=== PATIENT | male | born 1935 | race Caucasian/White ===

== ENCOUNTER 2017-11-27 03:04 | Inpatient (IN) ==
[2017-11-27] MEDS ORDERED: Naloxone 0.4 MG/ML INJ IVP PRN (05:55)
[2017-11-27] MEDS ORDERED: Ondansetron 4 MG/2 ML VIAL IVP PRN (05:55)
[2017-11-27] MEDS ORDERED: *HR* Enoxaparin 30 MG/0.3 ML SYRINGE SQ SCH (06:00)
[2017-11-27] MEDS ORDERED: Ipratropium/Albuterol Neb 3 ML IH PRN ×2 (06:00→16:52)
--- NOTE | 2017-11-27 06:12 | Internal Med History&Physical ---
Date of Encounter: 11/27/17 Time of Encounter: 06:02 Assessment and Plan (1) Acute exacerbation of chronic obstructive airways disease Current visit: No Status: Acute BIPAP in the ICU, critically ill duonebs iv steroids send RVP NPO with GI ppx for now given severe respiratory status (2) Pneumonia Current visit: No Status: Acute recheck blood cx IV cefepime IV vanco given failure of prior therapy supportive BIPAP Qualifiers: Pneumonia type: due to unspecified organism Laterality: right Lung location: lower lobe of lung Qualified Code(s): J18.1 - Lobar pneumonia, unspecified organism (3) Acute and chronic respiratory failure Current visit: Yes Status: Acute continue measures above Qualifiers: Respiratory failure complication: hypercapnia Qualified Code(s): J96.22 - Acute and chronic respiratory failure with hypercapnia (4) Diabetes type 2, controlled Current visit: No Status: Acute Qualifiers: Diabetes mellitus complication status: without complication Diabetes mellitus residential insulin use: without residential use Qualified Code(s): E11.9 - Type 2 diabetes mellitus without complications (5) HTN (hypertension) Current visit: Yes Status: Acute hold anti-HTN given above condition Qualifiers: Hypertension type: essential hypertension Qualified Code(s): I10 - Essential (primary) hypertension Internal Medicine - H&P: HPI Chief complaint: SOB History of present illness: Mr. Stephen is a 82 year old male who presents as a transfer from a local ED with respiratory failure 2/2 COPD flare and PNA. Review of hx was significant for PNA and strep pneumonia bacteremia on 11/06/17 and was subsequently sent home on levaquin a few days later on 11/09/17. Since returning home, he developed progressive SOB, worse with movement, better/ stable with rest in the last 5 days. He presented to the local ED with significant respiratory distress and had to be stabilized on Bipap prior to transfer to [facility] XR/XR chest 1V portable IMPRESSION: Multilobar pneumonia most pronounced in the right lower lobe. Follow-up imaging is recommended after treatment to ensure resolution. Past Med Surg Social Fam HX - Past Medical History Medical history: COPD, diabetes, hyperlipidemia, hypertension Psychiatric history: no psych history - Social History Smoking Status: Current every day smoker Smokeless Tobacco Status: No Alcohol use: none Drug use: none - Family History Grandmother Living Status: Hx Family Neurologic Disorders: Yes (stroke) Mother Living Status: Hx Family Cardiac Disorders: Yes (heart failure) Internal Medicine - H&P: Meds Albuterol Sulfate [Ventolin Hfa] 18 gm IH Q4-6H PRN 11/06/17 [History] Losartan Potassium [Cozaar] 100 mg PO DAILY 11/06/17 [History] Metoprolol Tartrate [Lopressor] 100 mg PO BID 11/06/17 [History] Simvastatin [Zocor] 20 mg PO HS 11/06/17 [History] Tiotropium [Spiriva] 18 mcg IH 0700 11/06/17 [History] Torsemide 5 mg PO DAILY 11/06/17 [History] amLODIPine [Norvasc] 10 mg PO DAILY 11/06/17 [History] metFORMIN [Glucophage] 850 mg PO BIDWM 11/06/17 [History] 3 Allergy/AdvReac Type Severity Reaction Status Date / Time No Known Allergies Allergy Verified 11/27/17 02:05 All Systems PM: A 10-system review of systems was performed and is negative for pertinent findings except as documented above in the HPI. Review of systems: ROS 14 point review of systems reviewed as best as possible given presentation. Pertinent positive or negative as per HPI or otherwise reviewed as negative - Constitutional Vitals: BP 157/80, HR 103, RR 35, pulse ox 95% on bipap Exam: General - In distress Psych - In respiratory distress Eyes - JUJU. Eye lids intact. No scleral icterus Neuro - Unable to participate fully due to respiratory distress Heart - Sinus tachycardia. RRR. S1 and S2 present. No added HS/murmurs appreciated. No elevated JVD appreciated. Lung - Adequate air entry b/l, crackles and rhonchis appreciated GI - Soft, non-tender. No hepatosplenomegaly/ascites. BS+ - No CVA/suprapubic tenderness or palpable bladder distension Skin - Intact. No rash/petechiae/ecchymosis. Warm extremities MSK - Joints with normal ROM. No joint swellings
[2017-11-27] MEDS ORDERED: D5% in Water 1,000 ML IVC PRN (06:15)
[2017-11-27] MEDS ORDERED: Dextrose Gel 15 GM/37.5 ML TUBE PO PRN ×2 (06:15)
[2017-11-27] MEDS ORDERED: *HR* Dextrose 50 % in Water (Syg) 50 ML SYRINGE IVP PRN (06:15)
[2017-11-27] MEDS ORDERED: *HR* Metoprolol 5 MG/5 ML VIAL IVP PRN (06:26)
[2017-11-27] MEDS: Cefepime HCl 2,000 MG in Water for inj. (sterile) 20 ML 20 ML IVPB SCH ×2 (06:39→17:28)
[2017-11-27] MEDS: Ringers Solution, Lactated 1,000 ML IVC SCH ×2 (06:41→17:21)
[2017-11-27] MEDS: Famotidine 20 MG/2 ML VIAL IVP SCH ×2 (06:43→17:28)
[2017-11-27 06:45] LABS: ABG Base Excess 2 mEq/L (-2 to 3); ABG HCO3 33 mEq/L (21-27); ABG Oxygen Saturation 79 % (95-98); ABG PCO2 88 mmHg (35-45); ABG PH 7.18 pH Units (7.32-7.45); ABG PO2 57 mmHg (85-104); ABG TCO2 36 mEq/L (20-26); Blood Gas PEEP 8 cm H2O; Blood Gas Pressure Support 14 cm H2O
[2017-11-27] MEDS ORDERED: Vancomycin 0 MG in D5% in Water 250 ML IVPB SCH (07:00)
[2017-11-27] MEDS: MethylPREDNISolone 40 MG/ML VIAL IVP SCH ×3 (07:55→20:52)
[2017-11-27] MEDS: Vancomycin 1,250 MG in D5% in Water 250 ML IVPB SCH (07:57)
[2017-11-27 08:47] LABS: ABG Base Excess 1 mEq/L (-2 to 3); ABG HCO3 31 mEq/L (21-27); ABG Oxygen Saturation 90 % (95-98); ABG PCO2 76 mmHg (35-45); ABG PH 7.21 pH Units (7.32-7.45); ABG PO2 74 mmHg (85-104); ABG TCO2 33 mEq/L (20-26); Blood Gas Modality BiLevel; Blood Gas PEEP 8 cm H2O; Blood Gas Pressure Support 20 cm H2O
[2017-11-27 10:29] LABS: Adenovirus Not Detected (Not Detect); Coronavirus 229E Not Detected (Not Detect); Coronavirus HKU1 Not Detected (Not Detect); Coronavirus NL63 Not Detected (Not Detect); Coronavirus OC43 Not Detected (Not Detect)
[2017-11-27 10:30] LABS: Bordetella Pertussis Not Detected (Not Detect); Chlamydophila pneumoniae Not Detected (Not Detect); Human Metapneumovirus ***DETECTED*** (Not Detect); Human Rhinovirus/Enterovirus Not Detected (Not Detect); Influenza A Subtype 2009 H1 Not Detected (Not Detect); Influenza A Untypeable Not Detected (Not Detect); Influenza B Not Detected (Not Detect); Mycoplasma pneumoniae Not Detected (Not Detect); Parainfluenza Virus 1 Not Detected (Not Detect); Parainfluenza Virus 2 Not Detected (Not Detect); Parainfluenza Virus 3 Not Detected (Not Detect); Parainfluenza Virus 4 Not Detected (Not Detect); Respiratory Syncytial Virus Not Detected (Not Detect)
[2017-11-27] MEDS: Ipratropium/Albuterol Neb 3 ML IH SCH ×2 (11:47→17:09)
[2017-11-27] MEDS: Insulin LISPRO 300 UNITS/3 ML VIAL SQ SCH ×3 (12:16→23:40)
--- NOTE | 2017-11-27 14:33 | Internal Med Progress Note ---
Date of Encounter: 11/27/17 Time of Encounter: 08:00 - Constitutional Vitals: Temp Pulse Resp BP Pulse Ox 97.7 F 79 13 160/76 100 11/27/17 11:59 11/27/17 12:08 11/27/17 11:47 11/27/17 07:45 11/27/17 11:47 Internal Medicine: Result - ABG Interpretation ABG results: ABG ABG pH 7.21 pH Units (7.32-7.45) L 11/27/17 08:41 ABG pCO2 76 mmHg (35-45) H* 11/27/17 08:41 ABG pO2 74 mmHg (85-104) L 11/27/17 08:41 ABG O2 Saturation 90 % (95-98) L 11/27/17 08:41 Consult Discharge Plan - Plan Referrals: Fermín Akhtar MD [Primary Care Provider] -
[2017-11-27 14:53] LABS: ABG Base Excess 4 mEq/L (-2 to 3); ABG HCO3 33 mEq/L (21-27); ABG Oxygen Saturation 90 % (95-98); ABG PCO2 85 mmHg (35-45); ABG PO2 76 mmHg (85-104); ABG TCO2 36 mEq/L (20-26); Blood Gas PEEP 8 cm H2O; Blood Gas Pressure Support 20 cm H2O
--- NOTE | 2017-11-27 16:41 | Pulmonology Consult Note ---
<DarrelBakari R - Last Filed: 11/27/17 16:28> Date of Encounter: 11/27/17 Time of Encounter: 16:28 Assessment and Plan (1) Acute and chronic respiratory failure Current Visit: Yes Status: Acute Secondary to Pneumonia and Acute Exacerbation of COPD Previous admission (11/06-11/09/17) with multilobar pneumonia and Strep pneumoniae bacteremia discharged on levaquin CXR: multilobar pneumonia most pronounced on right lower lobe Labs in ED showed normal blood counts and electrolytes Initial ABG: pH 7.24, pCO2 78, and pHCO3 33 Repeat ABG: pH 7.20, pCO2 76, and pHCO3 33 Respiratory panel positive for Metapneumo virus Blood and sputum cultures pending Continue Cefepime and Vancomycin Continue BiPAP, steroids Increase duonebs to Q2h Qualifiers: Respiratory failure complication: hypercapnia Qualified Code(s): J96.22 - Acute and chronic respiratory failure with hypercapnia (2) Acute exacerbation of chronic obstructive airways disease Current Visit: Yes Status: Acute (3) Pneumonia Current Visit: Yes Status: Acute Qualifiers: Pneumonia type: due to unspecified organism Laterality: right Lung location: lower lobe of lung Qualified Code(s): J18.1 - Lobar pneumonia, unspecified organism (4) HTN (hypertension) Current Visit: Yes Status: Acute Hold home meds Qualifiers: Hypertension type: essential hypertension Qualified Code(s): I10 - Essential (primary) hypertension (5) Diabetes type 2, controlled Current Visit: No Status: Acute Hold home meds. SSI Qualifiers: Diabetes mellitus complication status: without complication Diabetes mellitus senior living insulin use: without senior living use Qualified Code(s): E11.9 - Type 2 diabetes mellitus without complications History of Present Illness Consult date: 11/27/17 Requesting physician: Damien Chavez Reason for consult: pneumonia Chief complaint: Dyspnea History of present illness: Mr. Stephen is an 82 year old male with PMH of COPD, DM, HTN, and HLD, who was transferred from [facility] for acute on chronic respiratory failure secondary to acute exacerbation of COPD and pneumonia. He was recently admitted for multilobar PNA and strep pneumoniae bacteremia on 11/06/17 and discharged on with Levaquin. He then began to experience worsening dyspnea, associated with productive cough, worsened with exertion and improved with rest. He was stabilized with BiPAP prior to transfer. CXR showed multilobar pneumonia most pronounced on right lower lobe. Labs in ED showed normal blood counts and electrolytes. Initial pH 7.24, pCO2, and pHCO3 33. Past Med Surg Social Fam HX - Past Medical History Medical history: COPD, diabetes, hyperlipidemia, hypertension Psychiatric history: no psych history - Social History Smoking Status: Current every day smoker Smokeless Tobacco Status: No Alcohol use: none Drug use: none - Family History Grandmother Living Status: Hx Family Neurologic Disorders: Yes (stroke) Mother Living Status: Hx Family Cardiac Disorders: Yes (heart failure) Medications and Allergies Albuterol Sulfate [Ventolin Hfa] 18 gm IH Q4-6H PRN 11/06/17 [History] Losartan Potassium [Cozaar] 100 mg PO DAILY 11/06/17 [History] Metoprolol Tartrate [Lopressor] 100 mg PO BID 11/06/17 [History] Simvastatin [Zocor] 20 mg PO HS 11/06/17 [History] Tiotropium [Spiriva] 18 mcg IH 0700 11/06/17 [History] Torsemide 5 mg PO DAILY 11/06/17 [History] amLODIPine [Norvasc] 10 mg PO DAILY 11/06/17 [History] metFORMIN [Glucophage] 850 mg PO BIDWM 11/06/17 [History] Budesonide/Formoterol 160/4.5 [Symbicort 160/4.5] 1 puff IH AD 11/27/17 [History ] 3 Allergy/AdvReac Type Severity Reaction Status Date / Time No Known Allergies Allergy Verified 11/27/17 02:05 All Systems: A 10-system review of systems was performed and is negative for pertinent findings except as documented above in the HPI. Physical Examination General appearance: lethargic Eyes: nonicteric ENT: oropharynx dry Effort: mildly labored Auscultation: bilateral: wheezes, rhonchi (worse on right) Cardiovascular: regular rate and rhythm Gastrointestinal: normoactive bowel sounds Integumentary: normal Extremities: no cyanosis, pulses normal, edema pupils equal and round Results - Laboratory Findings ABG ABG pH 7.20 pH Units (7.32-7.45) L* 11/27/17 14:50 ABG pCO2 85 mmHg (35-45) H* 11/27/17 14:50 ABG pO2 76 mmHg (85-104) L 11/27/17 14:50 ABG O2 Saturation 90 % (95-98) L 11/27/17 14:50 Abnormal lab findings: Abnormal lab results ABG pH 7.20 pH Units (7.32-7.45) L* 11/27/17 14:50 ABG pCO2 85 mmHg (35-45) H* 11/27/17 14:50 ABG pO2 76 mmHg (85-104) L 11/27/17 14:50 ABG HCO3 33 mEq/L (21-27) H 11/27/17 14:50 ABG Total CO2 36 mEq/L (20-26) H 11/27/17 14:50 ABG O2 Saturation 90 % (95-98) L 11/27/17 14:50 ABG Base Excess 4 mEq/L (-2 to 3) H 11/27/17 14:50 POC Glucose 195 (58-89) H 11/27/17 11:24 Human Metapneumovir PCR DETECTED (Not Detect) A 11/27/17 08:55 - Clinical Findings Intake & Output: Intake & Output 11/27/17 11/27/17 11/27/17 07:59 15:59 23:59 Intake Total 270 / 270 Output Total 150 / 150 Balance 120 / 120 Weight 78.2 kg Consult Discharge Plan - Plan Referrals: Fermín Akhtar MD [Primary Care Provider] - <Zuleima Dunham S - Last Filed: 11/28/17 08:27> Date of Encounter: 11/28/17 All Systems: A 10-system review of systems was performed and is negative for pertinent findings except as documented above in the HPI. Physical Examination Vital Signs: Vital Signs, Last 4 Hours Pulse Resp BP Pulse Ox 11/27/17 17:10 12 100 11/27/17 16:00 71 13 120/57 100 Results - Laboratory Findings CBC and BMP: 11/28/17 03:12 11/28/17 03:12 ABG ABG pH 7.26 pH Units (7.32-7.45) L 11/27/17 17:57 ABG pCO2 70 mmHg (35-45) H* 11/27/17 17:57 ABG pO2 78 mmHg (85-104) L 11/27/17 17:57 ABG O2 Saturation 92 % (95-98) L 11/27/17 17:57 Abnormal lab findings: Abnormal lab results WBC 3.6 K/mcL (4.3-11.1) L D 11/27/17 18:01 RBC 3.63 M/mcL (4.19-5.50) L 11/27/17 18:01 Hgb 10.5 g/dL (12.9-16.9) L 11/27/17 18:01 Hct 34.0 % (37.5-50.1) L 11/27/17 18:01 MCHC 30.9 g/dL (31.6-35.5) L 11/27/17 18:01 RDW 14.8 % (11.5-14.5) H 11/27/17 18:01 Lymphocytes # 0.3 K/mcL (0.6-4.6) L 11/27/17 18:01 ABG pH 7.26 pH Units (7.32-7.45) L 11/27/17 17:57 ABG pCO2 70 mmHg (35-45) H* 11/27/17 17:57 ABG pO2 78 mmHg (85-104) L 11/27/17 17:57 ABG HCO3 31 mEq/L (21-27) H 11/27/17 17:57 ABG Total CO2 33 mEq/L (20-26) H 11/27/17 17:57 ABG O2 Saturation 92 % (95-98) L 11/27/17 17:57 Sodium 134 mEq/L (136-145) L 11/27/17 18:01 BUN 32 mg/dL (8-23) H 11/27/17 18:01 BUN/Creatinine Ratio 36 (6-26) H 11/27/17 18:01 Glucose 132 mg/dL (70-105) H 11/27/17 18:01 POC Glucose 117 (58-89) H 11/27/17 17:34 Calcium 8.5 mg/dL (8.6-10.3) L 11/27/17 18:01 Human Metapneumovir PCR DETECTED (Not Detect) A 11/27/17 08:55 - Clinical Findings Intake & Output: Intake & Output 0111/27/17 11/27/17 07:59 15:59 23:59 Intake Total 270 / 270 1000 / 1000 Output Total 150 / 150 Balance 120 / 120 1000 / 1000 Weight 78.2 kg - Attending Attestation I saw and evaluated this patient and my medical decision-making was reviewed with the Resident Physician. I agree with the documented findings, disposition and treatment plan as described except to the extent set forth below. We independently had [id number] contact with the patient I spent of Critical Care time 35 minutes with this patient. It involved decision making of high complexity to assess, manipulate, and support vital organ system failure and/or to prevent further life threatening deterioration of the patient's condition. The time involved in the performance of separately reportable procedures was not counted toward critical care time. Patient seen and examined at bedside Labs, radiology, chart personally reviewed. RADIATION CONTROL TECHNICIAN:Patient when initially arrived was obtunded secondary to toxic /metabolic encephalopathy with BIPAP treatment the CO2 slightly got better now patient is is arousable and following commands Pulm:Patient has Acute exacerbation of COPD complicated by multifocal bacterial pneumonia and Metapneumovurus infection since patient failed levquin will start on broad spectrum antibitoics . Patient has extensive wheezing causing V/Q mismatch and space ventilation will aggressive bronchodilator therapy if BIPAP 20/8 if doesnt generate adequate tidal volumes will need AVAPS .Will repeat ABG later this evening .CXR showed Right lower lobe pneumonia. Cards:Patient is hemodynamically stable CXR shows some evidence of pulmonary congestion will hold off diuretics for now to trend troponins FEN-GI:NPO Renal:Labs and output reviewed ID:To continue broad spectrum antibiotics for multifocal pneumonia prior cultures grew streptococcus pneumoniae will follow culture this time Heme/Onc:Labs reviewed will follow up Chest imaging in 8-12 weeks to document the RLL consolidative opacity is gone Endo: Glucose Monitored Integ/MSK: Skin Care per routine ICU Nursing Protocol to prevent ulcers. Lines: All lines examined without evidence of infection : Dispo: Patient remains critically ill has high chance of worsening acute on chronic respiratory failure might require endotracheal and mechanical ventilation will need ICU care tonight . CODE:Full Code
[2017-11-27 18:02] LABS: ABG Base Excess 3 mEq/L (-2 to 3); ABG HCO3 31 mEq/L (21-27); ABG Oxygen Saturation 92 % (95-98); ABG PCO2 70 mmHg (35-45); ABG PH 7.26 pH Units (7.32-7.45); ABG PO2 78 mmHg (85-104); ABG TCO2 33 mEq/L (20-26); Blood Gas Modality AVSA; Blood Gas PEEP 8 cm H2O; Blood Gas Pressure Support 22 cm H2O; Blood Gas Respiration Rate 10; Blood Gas VT 500 cc
[2017-11-27 18:09] LABS: Hemoglobin 10.5 g/dL (12.9-16.9); Immature Granulocytes % 0.6 % (0-4); Lymphocytes # 0.3 K/mcL (0.6-4.6); Lymphocytes % 8.9 %; Mean Corpuscular HGB Conc 30.9 g/dL (31.6-35.5); Mean Corpuscular Hemoglobin 28.9 pg (28.0-33.3); Mean Corpuscular Volume 93.7 fL (83.0-100.0); Mean Platelet Volume 9.5 fL (9.4-12.4); Monocytes # 0.2 K/mcL (0.0-1.3); Monocytes % 6.1 %; Platelet Count 212 K/mcL (140-400); Red Blood Count 3.63 M/mcL (4.19-5.50); Red Cell Distribution Width 14.8 % (11.5-14.5); Segmented Neutrophils % 84.4 %
[2017-11-27 18:26] LABS: BUN/Creatinine Ratio 36 (6-26); Blood Urea Nitrogen 32 mg/dL (8-23); Calcium 8.5 mg/dL (8.6-10.3); Carbon Dioxide 28 mEq/L (23-29); Chloride 100 mEq/L (98-107); Glucose 132 mg/dL (70-105); Osmolality,Calculated 287 (280-300); Potassium 4.7 mEq/L (3.5-5.1); Sodium 134 mEq/L (136-145); eGFR For African Americans > 60 (> 60); eGFR For Non-African Americans > 60 (> 60)
[2017-11-27 22:33] LABS: ABG Base Excess 2 mEq/L (-2 to 3); ABG HCO3 31 mEq/L (21-27); ABG Oxygen Saturation 92 % (95-98); ABG PCO2 75 mmHg (35-45); ABG PH 7.22 pH Units (7.32-7.45); ABG PO2 78 mmHg (85-104); ABG TCO2 33 mEq/L (20-26); Blood Gas Modality NIV
[2017-11-27 22:56] LABS: Bilirubin,Urine Negative (Negative); Blood,Urine Moderate (Negative); Clarity,Urine Slightly Cloudy (Clear); Glucose,Urine (UA) Normal (Normal); Ketones,Urine 15 mg/dL (Negative); Leukocyte Esterase,Urine Negative (Negative); Nitrite,Urine Negative (Negative); Protein,Urine 30 mg/dL (Neg-Trace); Specific Gravity,Urine 1.025 (1.010-1.025); Urobilinogen,Urine Normal (Normal)
[2017-11-27 22:58] LABS: Color,Urine Light Yellow (Yellow)
[2017-11-27 23:00] LABS: RBC,Urine 30-50 per hpf (0-3)
[2017-11-27 23:01] LABS: Squamous Epithelial Cell,Urine Many per lpf (None-Few)
[2017-11-27 23:03] LABS: Bacteria,Urine Few per hpf (None-Few); Hyaline Casts,Urine Few per lpf (None-Few)
[2017-11-28] MEDS: Ipratropium/Albuterol Neb 3 ML IH SCH ×5 (00:08→23:07)
[2017-11-28 03:22] LABS: Basophils % 0.2 %; Hematocrit 35.8 % (37.5-50.1); Hemoglobin 11.1 g/dL (12.9-16.9); Immature Granulocytes % 0.5 % (0-4); Lymphocytes # 0.3 K/mcL (0.6-4.6); Lymphocytes % 5.2 %; Mean Corpuscular Hemoglobin 29.3 pg (28.0-33.3); Mean Corpuscular Volume 94.5 fL (83.0-100.0); Mean Platelet Volume 9.3 fL (9.4-12.4); Monocytes # 0.2 K/mcL (0.0-1.3); Monocytes % 3.8 %; Neutrophils # 5.5 K/mcL (1.6-8.9); Platelet Count 282 K/mcL (140-400); Red Blood Count 3.79 M/mcL (4.19-5.50); Red Cell Distribution Width 14.9 % (11.5-14.5); Segmented Neutrophils % 90.3 %
[2017-11-28 03:29] LABS: ABG Base Excess 0 mEq/L (-2 to 3); ABG HCO3 28 mEq/L (21-27); ABG Oxygen Saturation 90 % (95-98); ABG PCO2 59 mmHg (35-45); ABG PH 7.28 pH Units (7.32-7.45); ABG PO2 67 mmHg (85-104); ABG TCO2 30 mEq/L (20-26)
[2017-11-28] MEDS ORDERED: Dexmedetomidine HCl 400 MCG/100 ML MLS IVC SCH ×2 (03:30→14:00)
[2017-11-28] MEDS: MethylPREDNISolone 40 MG/ML VIAL IVP SCH ×3 (03:33→17:00)
[2017-11-28 03:38] LABS: BUN/Creatinine Ratio 37 (6-26); Blood Urea Nitrogen 33 mg/dL (8-23); Carbon Dioxide 27 mEq/L (23-29); Chloride 98 mEq/L (98-107); Glucose 175 mg/dL (70-105); Osmolality,Calculated 294 (280-300); Potassium 4.5 mEq/L (3.5-5.1); Sodium 136 mEq/L (136-145); eGFR For African Americans > 60 (> 60); eGFR For Non-African Americans > 60 (> 60)
[2017-11-28] MEDS: Cefepime HCl 2,000 MG in Water for inj. (sterile) 20 ML 20 ML IVPB SCH (05:57)
[2017-11-28] MEDS: Insulin LISPRO 300 UNITS/3 ML VIAL SQ SCH ×3 (05:58→18:01)
[2017-11-28] MEDS: Famotidine 20 MG/2 ML VIAL IVP SCH ×2 (05:58→17:48)
[2017-11-28] MEDS ORDERED: *HR* Enoxaparin 40 MG/0.4 ML SYRINGE SQ SCH (06:00)
[2017-11-28] MEDS: Vancomycin 1,250 MG in D5% in Water 250 ML IVPB SCH (06:24)
[2017-11-28] MEDS ORDERED: Aminoglycoside Consult 1 EACH MC ONE (08:24)
--- NOTE | 2017-11-28 08:51 | Pulmonology Progress Note ---
<Bakari Rojo - Last Filed: 11/28/17 11:34> Date of Encounter: 11/28/17 Time of Encounter: 08:51 Assessment and Plan (1) Acute and chronic respiratory failure Current Visit: Yes Status: Acute Secondary to Pneumonia and Acute Exacerbation of COPD Previous admission (11/06-11/09/17) with multilobar pneumonia and Strep pneumoniae bacteremia discharged on levaquin CXR: multilobar pneumonia most pronounced on right lower lobe Labs in ED showed normal blood counts and electrolytes Initial ABG: pH 7.24, pCO2 78, and pHCO3 33 ABG today: pH 7.28, pCO2 59, PO2 67, pHCO3 28 Respiratory panel positive for Metapneumo virus Blood and sputum cultures pending Continue Cefepime and Vancomycin Continue BiPAP, steroids, and duonebs to Q2h Pt is showing improvement on BiPAP and will likely be transferred to Qualifiers: Respiratory failure complication: hypercapnia Qualified Code(s): J96.22 - Acute and chronic respiratory failure with hypercapnia (2) Acute exacerbation of chronic obstructive airways disease Current Visit: Yes Status: Inactive (3) Pneumonia Current Visit: Yes Status: Inactive Qualifiers: Pneumonia type: due to unspecified organism Laterality: right Lung location: lower lobe of lung Qualified Code(s): J18.1 - Lobar pneumonia, unspecified organism (4) Atrial fibrillation with controlled ventricular rate Current Visit: Yes Status: Acute Pt went into atrial fibrillation last night - currently rate controlled Does not appear that the patient has a history of a.fib Will trend troponins and monitor Will start rate control medications if needed CHADS-VASc score of 4 (age (2), HTN, DM) - currently on lovenox but will need further discussion of risk/benefits of anticoagulation before discharge (5) HTN (hypertension) Current Visit: Yes Status: Acute Hold home meds Qualifiers: Hypertension type: essential hypertension Qualified Code(s): I10 - Essential (primary) hypertension (6) Diabetes type 2, controlled Current Visit: No Status: Acute Hold home meds, SSI Qualifiers: Diabetes mellitus complication status: without complication Diabetes mellitus senior care insulin use: without senior care use Qualified Code(s): E11.9 - Type 2 diabetes mellitus without complications Subjective Principal diagnosis: COPD, PNA Interval history: Pt seen and examined at bedside. Awakens easily and follows commands. Denies pain. Overnight was a little more aggitated and went into a. fib with rate controlled. Objective PUL Vital signs: Last Vital Signs Temp 97.8 F 11/28/17 07:29 Pulse 93 11/28/17 08:00 Resp 18 11/28/17 08:00 BP 111/62 11/28/17 08:00 Pulse Ox 100 11/28/17 08:00 General appearance: no acute distress Eyes: nonicteric ENT: oropharynx moist Effort: mildly labored Auscultation: bilateral: wheezes, rhonchi Cardiovascular: irregular rhythm Gastrointestinal: normoactive bowel sounds Integumentary: normal Extremities: no cyanosis, edema (bilateral LE) non-focal exam, pupils equal and round Ventilator Settings Ventilator Settings: Ventilator Settings, Last 8 Hours Ventilator Tidal Volume 500 Setting Ventilator Respiratory Rate 10 Setting Results - Laboratory Findings CBC and BMP: 11/28/17 03:12 11/28/17 03:12 ABG ABG pH 7.28 pH Units (7.32-7.45) L 11/28/17 03:26 ABG pCO2 59 mmHg (35-45) H 11/28/17 03:26 ABG pO2 67 mmHg (85-104) L 11/28/17 03:26 ABG O2 Saturation 90 % (95-98) L 11/28/17 03:26 Abnormal lab findings: Abnormal lab results RBC 3.79 M/mcL (4.19-5.50) L 11/28/17 03:12 Hgb 11.1 g/dL (12.9-16.9) L 11/28/17 03:12 Hct 35.8 % (37.5-50.1) L 11/28/17 03:12 MCHC 31.0 g/dL (31.6-35.5) L 11/28/17 03:12 RDW 14.9 % (11.5-14.5) H 11/28/17 03:12 MPV 9.3 fL (9.4-12.4) L 11/28/17 03:12 Lymphocytes # 0.3 K/mcL (0.6-4.6) L 11/28/17 03:12 ABG pH 7.28 pH Units (7.32-7.45) L 11/28/17 03:26 ABG pCO2 59 mmHg (35-45) H 11/28/17 03:26 ABG pO2 67 mmHg (85-104) L 11/28/17 03:26 ABG HCO3 28 mEq/L (21-27) H 11/28/17 03:26 ABG Total CO2 30 mEq/L (20-26) H 11/28/17 03:26 ABG O2 Saturation 90 % (95-98) L 11/28/17 03:26 BUN 33 mg/dL (8-23) H 11/28/17 03:12 BUN/Creatinine Ratio 37 (6-26) H 11/28/17 03:12 Glucose 175 mg/dL (70-105) H 11/28/17 03:12 POC Glucose 169 (58-89) H 11/28/17 05:44 Urine Clarity Slightly Cloudy (Clear) A 11/27/17 20:53 Urine Protein 30 mg/dL (Neg-Trace) H 11/27/17 20:53 Urine Ketones 15 mg/dL (Negative) H 11/27/17 20:53 Urine Blood Moderate (Negative) H 11/27/17 20:53 Urine Microscopic RBC 30-50 per hpf (0-3) H 11/27/17 20:53 Urine Microscopic WBC 5-15 per hpf (0-3) H 11/27/17 20:53 Ur Squamous Epith Cells Many per lpf (None-Few) H 11/27/17 20:53 Human Metapneumovir PCR DETECTED (Not Detect) A 11/27/17 08:55 - Clinical Findings Intake & Output: Intake & Output 11/27/17 11/28/17 11/28/17 23:59 07:59 15:59 Intake Total 1020 / 1020 20 / 20 Output Total 350 / 350 125 / 125 Balance 670 / 670 -105 / -105 Weight 79 kg Consult Discharge Plan - Plan Referrals: Fermín Akhtar MD [Primary Care Provider] - <Zuliema Dunham - Last Filed: 11/28/17 23:05> Date of Encounter: 11/28/17 Objective PUL Vital signs: Last Vital Signs Temp 96 F L 11/28/17 20:00 Pulse 63 11/28/17 22:00 Resp 15 11/28/17 22:00 BP 131/77 11/28/17 22:00 Pulse Ox 96 11/28/17 22:00 Results - Laboratory Findings CBC and BMP: 11/28/17 03:12 11/28/17 03:12 ABG ABG pH 7.28 pH Units (7.32-7.45) L 11/28/17 03:26 ABG pCO2 59 mmHg (35-45) H 11/28/17 03:26 ABG pO2 67 mmHg (85-104) L 11/28/17 03:26 ABG O2 Saturation 90 % (95-98) L 11/28/17 03:26 Abnormal lab findings: Abnormal lab results RBC 3.79 M/mcL (4.19-5.50) L 11/28/17 03:12 Hgb 11.1 g/dL (12.9-16.9) L 11/28/17 03:12 Hct 35.8 % (37.5-50.1) L 11/28/17 03:12 MCHC 31.0 g/dL (31.6-35.5) L 11/28/17 03:12 RDW 14.9 % (11.5-14.5) H 11/28/17 03:12 MPV 9.3 fL (9.4-12.4) L 11/28/17 03:12 Lymphocytes # 0.3 K/mcL (0.6-4.6) L 11/28/17 03:12 ABG pH 7.28 pH Units (7.32-7.45) L 11/28/17 03:26 ABG pCO2 59 mmHg (35-45) H 11/28/17 03:26 ABG pO2 67 mmHg (85-104) L 11/28/17 03:26 ABG HCO3 28 mEq/L (21-27) H 11/28/17 03:26 ABG Total CO2 30 mEq/L (20-26) H 11/28/17 03:26 ABG O2 Saturation 90 % (95-98) L 11/28/17 03:26 BUN 33 mg/dL (8-23) H 11/28/17 03:12 BUN/Creatinine Ratio 37 (6-26) H 11/28/17 03:12 Glucose 175 mg/dL (70-105) H 11/28/17 03:12 POC Glucose 182 (58-89) H 11/28/17 18:00 Urine Clarity Slightly Cloudy (Clear) A 11/27/17 20:53 Urine Protein 30 mg/dL (Neg-Trace) H 11/27/17 20:53 Urine Ketones 15 mg/dL (Negative) H 11/27/17 20:53 Urine Blood Moderate (Negative) H 11/27/17 20:53 Urine Microscopic RBC 30-50 per hpf (0-3) H 11/27/17 20:53 Urine Microscopic WBC 5-15 per hpf (0-3) H 11/27/17 20:53 Ur Squamous Epith Cells Many per lpf (None-Few) H 11/27/17 20:53 Human Metapneumovir PCR DETECTED (Not Detect) A 11/27/17 08:55 - Microbiology Findings Microbiology Findings: Microbiology, Last 48 Hours 11/27/17 06:31 Blood Culture - Preliminary Peripheral Venipuncture No growth. 11/27/17 06:29 Blood Culture - Preliminary Peripheral Venipuncture No growth. - Clinical Findings Intake & Output: Intake & Output 11/28/17 11/28/17 11/28/17 07:59 15:59 23:59 Intake Total 20 / 20 100 / 100 100 / 100 Output Total 125 / 125 375 / 375 100 / 100 Balance -105 / -105 -275 / -275 0 / 0 Weight 79 kg - Attending Attestation I saw and evaluated this patient and my medical decision-making was reviewed with the Resident Physician. I agree with the documented findings, disposition and treatment plan as described except to the extent set forth below. We independently had [id number] contact with the patient Patient seen and examined at bedside Labs, radiology, chart personally reviewed. COSMETIC COUNSELOR:Patient is conscious oriented but has episodic confusion to continue precedex Pulm:Patient has Acute exacerbation of COPD complicated by multifocal bacterial pneumonia and Metapneumovurus infection since patient failed levquin started on broad spectrum antibitoics . Patient has extensive wheezing causing V/Q mismatch and space ventilation will aggressive bronchodilator therapy Patient improved well on broad spectrum antibiotics and NIV to continue BIPAP at night Cards:Patient is hemodynamically stable CXR shows some evidence of pulmonary congestion will start diuresing him gently FEN-GI:NPO if he is stable off BIPAP we can give some clear liquid diet Renal:Labs and output reviewed ID:To continue broad spectrum antibiotics for multifocal pneumonia prior cultures grew streptococcus pneumoniae will follow culture this time Heme/Onc:Labs reviewed will follow up Chest imaging in 8-12 weeks to document the RLL consolidative opacity is gone Endo: Glucose Monitored Integ/MSK: Skin Care per routine ICU Nursing Protocol to prevent ulcers. Lines: All lines examined without evidence of infection : Dispo: Patient remains critically ill has high chance of worsening acute on chronic respiratory failure might require endotracheal and mechanical ventilation will need ICU care tonight . CODE:Full Code
[2017-11-28] MEDS ORDERED: Albuterol 2.5 MG/3 ML NEBULIZER IH PRN (11:25)
[2017-11-28] MEDS ORDERED: *HR* Metoprolol 5 MG/5 ML VIAL IVP PRN (12:34)
[2017-11-28] MEDS ORDERED: Naloxone 0.4 MG/ML INJ IVP PRN (12:34)
[2017-11-28] MEDS ORDERED: D5% in Water 1,000 ML IVC PRN (12:34)
[2017-11-28] MEDS ORDERED: Dextrose Gel 15 GM/37.5 ML TUBE PO PRN ×2 (12:34)
[2017-11-28] MEDS ORDERED: Ondansetron 4 MG/2 ML VIAL IVP PRN (12:34)
[2017-11-28] MEDS ORDERED: *HR* Dextrose 50 % in Water (Syg) 50 ML SYRINGE IVP PRN (12:34)
[2017-11-28] MEDS ORDERED: Dexmedetomidine HCl 400 MCG/100 ML MLS IVC ONE (12:40)
[2017-11-28] MEDS ORDERED: MethylPREDNISolone 40 MG/ML VIAL IVP SCH (16:00)
[2017-11-28] MEDS: Dexmedetomidine HCl 400 MCG/100 ML MLS IVC SCH (17:47)
[2017-11-28] MEDS: Cefepime HCl 2,000 MG in Water for inj. (sterile) 20 ML 20 ML IVP SCH (17:48)
[2017-11-28] MEDS ORDERED: 0.9 % Sodium Chloride 250 ML ONE (20:38)
[2017-11-29] MEDS: MethylPREDNISolone 40 MG/ML VIAL IVP SCH ×3 (00:11→16:26)
[2017-11-29] MEDS: Insulin LISPRO 300 UNITS/3 ML VIAL SQ SCH ×4 (00:11→19:17)
[2017-11-29] MEDS: Ipratropium/Albuterol Neb 3 ML IH SCH ×4 (04:05→22:03)
[2017-11-29] MEDS: Dexmedetomidine HCl 400 MCG/100 ML MLS IVC SCH ×4 (04:45→21:40)
[2017-11-29 06:04] LABS: Basophils % 0.2 %; Hematocrit 29.6 % (37.5-50.1); Lymphocytes # 0.2 K/mcL (0.6-4.6); Lymphocytes % 5.1 %; Mean Corpuscular HGB Conc 31.8 g/dL (31.6-35.5); Mean Corpuscular Hemoglobin 29.1 pg (28.0-33.3); Mean Corpuscular Volume 91.6 fL (83.0-100.0); Mean Platelet Volume 9.5 fL (9.4-12.4); Monocytes # 0.3 K/mcL (0.0-1.3); Monocytes % 6.8 %; Neutrophils # 3.6 K/mcL (1.6-8.9); Platelet Count 255 K/mcL (140-400); Red Blood Count 3.23 M/mcL (4.19-5.50); Segmented Neutrophils % 86.9 %
[2017-11-29 06:13] LABS: Hemoglobin 9.4 g/dL (12.9-16.9)
[2017-11-29 06:20] LABS: BUN/Creatinine Ratio 53 (6-26); Blood Urea Nitrogen 43 mg/dL (8-23); Calcium 8.6 mg/dL (8.6-10.3); Carbon Dioxide 32 mEq/L (23-29); Chloride 102 mEq/L (98-107); Glucose 175 mg/dL (70-105); Magnesium 2.2 mg/dL (1.6-2.6); Osmolality,Calculated 299 (280-300); Potassium 4.7 mEq/L (3.5-5.1); Sodium 137 mEq/L (136-145); eGFR For African Americans > 60 (> 60); eGFR For Non-African Americans > 60 (> 60)
[2017-11-29] MEDS: Cefepime HCl 2,000 MG in Water for inj. (sterile) 20 ML 20 ML IVP SCH ×2 (06:27→19:16)
[2017-11-29] MEDS: Famotidine 20 MG/2 ML VIAL IVP SCH ×2 (06:27→19:15)
[2017-11-29] MEDS: *HR* Enoxaparin 40 MG/0.4 ML SYRINGE SQ SCH (06:27)
[2017-11-29] MEDS ORDERED: Vancomycin 1,250 MG in D5% in Water 250 ML IVPB SCH (07:00)
[2017-11-29] MEDS ORDERED: Furosemide 20 MG/2 ML VIAL IVP ONE ×2 (07:43→14:56)
[2017-11-29 08:16] LABS: ABG Base Excess 6 mEq/L (-2 to 3); ABG HCO3 31 mEq/L (21-27); ABG Oxygen Saturation 98 % (95-98); ABG PCO2 49 mmHg (35-45); ABG PH 7.42 pH Units (7.32-7.45); ABG PO2 99 mmHg (85-104); ABG TCO2 33 mEq/L (20-26); Blood Gas Respiration Rate 10; Blood Gas VT 500 cc
--- NOTE | 2017-11-29 08:44 | Pulmonology Progress Note ---
<Bakari Rojo - Last Filed: 11/29/17 11:12> Date of Encounter: 11/29/17 Time of Encounter: 08:39 Assessment and Plan (1) Acute and chronic respiratory failure Current Visit: Yes Status: Acute Secondary to Pneumonia and Acute Exacerbation of COPD Previous admission (11/06-11/09/17) with multilobar pneumonia and Strep pneumoniae bacteremia discharged on levaquin CXR: multilobar pneumonia most pronounced on right lower lobe Labs in ED showed normal blood counts and electrolytes Initial ABG: pH 7.24, pCO2 78, and pHCO3 33 ABG today: pH 7.42, pCO2 49, PO2 99, pHCO3 31 Respiratory panel positive for Metapneumo virus Blood culture shows NGTD Continue Cefepime. Discontinue Vancomycin Continue BiPAP, steroids, and duonebs to Q6H Pt remains in poor condition - will stay in ICU Consult Palliative Care for goals of care Qualifiers: Respiratory failure complication: hypercapnia Qualified Code(s): J96.22 - Acute and chronic respiratory failure with hypercapnia (2) Acute exacerbation of chronic obstructive airways disease Current Visit: Yes Status: Acute (3) Pneumonia Current Visit: Yes Status: Acute Qualifiers: Pneumonia type: due to unspecified organism Laterality: right Lung location: lower lobe of lung Qualified Code(s): J18.1 - Lobar pneumonia, unspecified organism (4) Atrial fibrillation with controlled ventricular rate Current Visit: Yes Status: Acute Pt went into atrial fibrillation 11/27 - currently rate controlled Does not appear that the patient has a history of a.fib Will trend troponins <0.03 Will start rate control medications if needed CHADS-VASc score of 4 (age (2), HTN, DM) - currently on lovenox but will need further discussion of risk/benefits of anticoagulation before discharge (5) HTN (hypertension) Current Visit: Yes Status: Acute Hold home meds Qualifiers: Hypertension type: essential hypertension Qualified Code(s): I10 - Essential (primary) hypertension (6) Diabetes type 2, controlled Current Visit: No Status: Acute Hold home meds, SSI Qualifiers: Diabetes mellitus complication status: without complication Diabetes mellitus assisted insulin use: without assisted use Qualified Code(s): E11.9 - Type 2 diabetes mellitus without complications Subjective Principal diagnosis: COPD, PNA Interval history: Pt seen and examined at bedside. Awakens easily and follows commands. Denies pain. More confused last night per RN. Objective PUL Vital signs: Last Vital Signs Temp 96.6 F L 11/29/17 03:02 Pulse 91 11/29/17 08:26 Resp 26 11/29/17 08:26 BP 148/104 11/29/17 08:26 Pulse Ox 99 11/29/17 08:26 General appearance: no acute distress Eyes: nonicteric ENT: oropharynx moist Auscultation: bilateral: diminished breath sounds, rhonchi Cardiovascular: irregular rhythm Gastrointestinal: normoactive bowel sounds Extremities: no cyanosis, edema (bilateral LE) non-focal exam, pupils equal and round Results - Laboratory Findings CBC and BMP: 11/29/17 05:47 11/29/17 05:47 ABG ABG pH 7.42 pH Units (7.32-7.45) 11/29/17 08:09 ABG pCO2 49 mmHg (35-45) H 11/29/17 08:09 ABG pO2 99 mmHg (85-104) 11/29/17 08:09 ABG O2 Saturation 98 % (95-98) 11/29/17 08:09 Abnormal lab findings: Abnormal lab results WBC 4.1 K/mcL (4.3-11.1) L 11/29/17 05:47 RBC 3.23 M/mcL (4.19-5.50) L 11/29/17 05:47 Hgb 9.4 g/dL (12.9-16.9) L D 11/29/17 05:47 Hct 29.6 % (37.5-50.1) L 11/29/17 05:47 RDW 15.0 % (11.5-14.5) H 11/29/17 05:47 Lymphocytes # 0.2 K/mcL (0.6-4.6) L 11/29/17 05:47 ABG pCO2 49 mmHg (35-45) H 11/29/17 08:09 ABG HCO3 31 mEq/L (21-27) H 11/29/17 08:09 ABG Total CO2 33 mEq/L (20-26) H 11/29/17 08:09 ABG Base Excess 6 mEq/L (-2 to 3) H 11/29/17 08:09 Carbon Dioxide 32 mEq/L (23-29) H 11/29/17 05:47 BUN 43 mg/dL (8-23) H 11/29/17 05:47 BUN/Creatinine Ratio 53 (6-26) H 11/29/17 05:47 Glucose 175 mg/dL (70-105) H 11/29/17 05:47 POC Glucose 171 (58-89) H 11/29/17 06:01 Urine Clarity Slightly Cloudy (Clear) A 11/27/17 20:53 Urine Protein 30 mg/dL (Neg-Trace) H 11/27/17 20:53 Urine Ketones 15 mg/dL (Negative) H 11/27/17 20:53 Urine Blood Moderate (Negative) H 11/27/17 20:53 Urine Microscopic RBC 30-50 per hpf (0-3) H 11/27/17 20:53 Urine Microscopic WBC 5-15 per hpf (0-3) H 11/27/17 20:53 Ur Squamous Epith Cells Many per lpf (None-Few) H 11/27/17 20:53 Vancomycin Trough 8.7 mcg/mL (10-20) L 11/29/17 05:47 Human Metapneumovir PCR DETECTED (Not Detect) A 11/27/17 08:55 - Microbiology Findings Microbiology Findings: Microbiology, Last 48 Hours 11/27/17 06:31 Blood Culture - Preliminary Peripheral Venipuncture No growth. 11/27/17 06:29 Blood Culture - Preliminary Peripheral Venipuncture No growth. - Clinical Findings Intake & Output: Intake & Output 11/28/17 11/29/17 11/29/17 23:59 07:59 15:59 Intake Total 120 / 120 100 / 100 Output Total 200 / 200 100 / 100 Balance -80 / -80 0 / 0 Weight 79.6 kg Consult Discharge Plan - Plan Referrals: Fermín Akhtar MD [Primary Care Provider] - <Zuleima Dunham - Last Filed: 11/29/17 22:30> Date of Encounter: 11/29/17 Objective PUL Vital signs: Last Vital Signs Temp 97.4 F L 11/29/17 19:02 Pulse 67 11/29/17 22:05 Resp 18 11/29/17 22:05 BP 127/84 11/29/17 22:05 Pulse Ox 100 11/29/17 22:05 Results - Laboratory Findings CBC and BMP: 11/29/17 05:47 11/29/17 05:47 ABG ABG pH 7.42 pH Units (7.32-7.45) 11/29/17 08:09 ABG pCO2 49 mmHg (35-45) H 11/29/17 08:09 ABG pO2 99 mmHg (85-104) 11/29/17 08:09 ABG O2 Saturation 98 % (95-98) 11/29/17 08:09 Abnormal lab findings: Abnormal lab results WBC 4.1 K/mcL (4.3-11.1) L 11/29/17 05:47 RBC 3.23 M/mcL (4.19-5.50) L 11/29/17 05:47 Hgb 9.4 g/dL (12.9-16.9) L D 11/29/17 05:47 Hct 29.6 % (37.5-50.1) L 11/29/17 05:47 RDW 15.0 % (11.5-14.5) H 11/29/17 05:47 Lymphocytes # 0.2 K/mcL (0.6-4.6) L 11/29/17 05:47 ABG pCO2 49 mmHg (35-45) H 11/29/17 08:09 ABG HCO3 31 mEq/L (21-27) H 11/29/17 08:09 ABG Total CO2 33 mEq/L (20-26) H 11/29/17 08:09 ABG Base Excess 6 mEq/L (-2 to 3) H 11/29/17 08:09 Carbon Dioxide 32 mEq/L (23-29) H 11/29/17 05:47 BUN 43 mg/dL (8-23) H 11/29/17 05:47 BUN/Creatinine Ratio 53 (6-26) H 11/29/17 05:47 Glucose 175 mg/dL (70-105) H 11/29/17 05:47 POC Glucose 257 (58-89) H 11/29/17 18:11 Urine Clarity Slightly Cloudy (Clear) A 11/27/17 20:53 Urine Protein 30 mg/dL (Neg-Trace) H 11/27/17 20:53 Urine Ketones 15 mg/dL (Negative) H 11/27/17 20:53 Urine Blood Moderate (Negative) H 11/27/17 20:53 Urine Microscopic RBC 30-50 per hpf (0-3) H 11/27/17 20:53 Urine Microscopic WBC 5-15 per hpf (0-3) H 11/27/17 20:53 Ur Squamous Epith Cells Many per lpf (None-Few) H 11/27/17 20:53 Vancomycin Trough 8.7 mcg/mL (10-20) L 11/29/17 05:47 Human Metapneumovir PCR DETECTED (Not Detect) A 11/27/17 08:55 - Microbiology Findings Microbiology Findings: Microbiology, Last 48 Hours 11/27/17 06:31 Blood Culture - Preliminary Peripheral Venipuncture No growth. 11/27/17 06:29 Blood Culture - Preliminary Peripheral Venipuncture No growth. - Clinical Findings Intake & Output: Intake & Output 11/29/17 11/29/17 11/29/17 07:59 15:59 23:59 Intake Total 120 / 120 560 / 560 200 / 200 Output Total 200 / 200 960 / 960 700 / 700 Balance -80 / -80 -400 / -400 -500 / -500 Weight 79.6 kg - Attending Attestation Patient seen and examined at bedside Labs, radiology, chart personally reviewed. VP SCIENTIFIC:Patient is conscious oriented but has episodic confusion to continue precedex Pulm:Patient has Acute exacerbation of COPD complicated by multifocal bacterial pneumonia and Metapneumovurus infection since patient failed levquin started on broad spectrum antibitoics deescalated antibiotics . Patient has extensive wheezing causing V/Q mismatch and space ventilation will continue aggressive bronchodilator therapy. To continue BIPAP tonight Cards:Patient is hemodynamically stable CXR shows some evidence of pulmonary congestion will start diuresing him gently FEN-GI:Diet when off BIPAP Renal:Labs and output reviewed ID:To continue broad spectrum antibiotics for multifocal pneumonia prior cultures grew streptococcus pneumoniae will follow culture this time Heme/Onc:Labs reviewed will follow up Chest imaging in 8-12 weeks to document the RLL consolidative opacity is gone . Latest X ray shows improved right lung zone infiltrate Endo: Glucose Monitored Integ/MSK: Skin Care per routine ICU Nursing Protocol to prevent ulcers. Lines: All lines examined without evidence of infection : Dispo: Patient remains critically ill has high chance of worsening acute on chronic respiratory failure might require endotracheal and mechanical ventilation will need ICU care tonight . CODE:Full Code
--- NOTE | 2017-11-29 12:59 | Palliative - Consult Note ---
Date of Encounter: 11/29/17 Time of Encounter: 12:00 - Assessment and Plan (1) Anxiety Current Visit: Yes Status: Acute Assessment and plan: On Precedex per ICU protocol. Currently at 0.7. MOnitor (2) Dyspnea Current Visit: Yes Status: Acute Assessment and plan: Continues with Oxygen/bipap support/steroids/bronchodilators/ antibiotics to treat pneumonia. Monitor He was in distress this am and required bipap and sedation. Qualifiers: Dyspnea type: unspecified Qualified Code(s): R06.00 - Dyspnea, unspecified (3) Goals of care, counseling/discussion Current Visit: Yes Status: Acute Assessment and plan: Patient currently sedated - unable to answer many questions and appears confused when awake. 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 Total of 5 children - Maximus is caring for her while pt in hospital. There is another son who lives there that works, and 3 other children that Chino states "aren't around much". States his father has no designated power of carpenter's helper for himself. Updated him on clinical condition. Asked him if he knew his father's wishes if his condition would worsen, and he stated "he would probably want everything done, he's the one who takes care of mom". Son states that pt was independent at home prior to admission. Explained that if pt does not do well, or ends up on ventilator, we would need to meet with all children to make medical decisions for him. Chino verbalized understanding, states he has no transportation and would take him a while to get in touch with everyone to get them here. I gave him my name and contact information. Will continue to follow (4) Community acquired pneumonia Current Visit: No Status: Acute Qualifiers: Laterality: right Lung location: middle lobe of lung Qualified Code(s): J18.1 - Lobar pneumonia, unspecified organism (5) Acute exacerbation of chronic obstructive airways disease Current Visit: Yes Status: Acute (6) Atrial fibrillation with controlled ventricular rate Current Visit: Yes Status: Acute Palliative-CN HPI - Data of Consult Consult date: 11/29/17 Requesting Physician: Damien Chavez DO Primary Care Provider: Fermín Akhtar MD - Consult Narrative History of present illness: Mr. Stephen is a 82 year old male with PMH of COPD, DM, HTN, and HLD, who was transferred from [facility] ED for acute on chronic respiratory failure secondary to acute exacerbation of COPD and pneumonia. He had an inpatient stay at [facility] from Nov 06 to Nov 09 this year where he was treated for pneumonia and discharged with po Levaquin. Son states he had increasing shortness of breath at home, but refused to go back to hospital for a few days. He did present to [facility] and was transferred here to [place]. CXR showed multilobar pneumonia most pronounced on right lower lobe. Upon my visit, he is lightly sedated with Precedex and on bipap. He apparently was in respiratory distress earlier today, and very anxious, sedated was titrated for comfort. He awakens easily, but appears confused. Does answer a few yes/no questions. Speech somewhat garbled. Becomes restless with much stimulation. CC: Damien Chavez, DO Past Med Surg Social Fam HX - Past Medical History Medical history: COPD, diabetes, hyperlipidemia, hypertension Psychiatric history: no psych history - Social History Smoking Status: Current every day smoker Smokeless Tobacco Status: No Alcohol use: none Drug use: none - Family History Grandmother Living Status: Hx Family Neurologic Disorders: Yes (stroke) Mother Living Status: Hx Family Cardiac Disorders: Yes (heart failure) Medications and Allergies Albuterol Sulfate [Ventolin Hfa] 18 gm IH Q4-6H PRN 11/06/17 [History] Losartan Potassium [Cozaar] 100 mg PO DAILY 11/06/17 [History] Metoprolol Tartrate [Lopressor] 100 mg PO BID 11/06/17 [History] Simvastatin [Zocor] 20 mg PO HS 11/06/17 [History] Tiotropium [Spiriva] 18 mcg IH 0700 11/06/17 [History] Torsemide 5 mg PO DAILY 11/06/17 [History] amLODIPine [Norvasc] 10 mg PO DAILY 11/06/17 [History] metFORMIN [Glucophage] 850 mg PO BIDWM 11/06/17 [History] Budesonide/Formoterol 160/4.5 [Symbicort 160/4.5] 1 puff IH AD 11/27/17 [History ] 3 Allergy/AdvReac Type Severity Reaction Status Date / Time No Known Allergies Allergy Verified 11/27/17 02:05 ROS unobtainable: due to mental status Palliative Care-Exam - Constitutional Vitals: Temp Pulse Resp BP Pulse Ox 97.7 F 76 14 142/89 92 11/29/17 11:12 11/29/17 11:12 11/29/17 11:12 11/29/17 11:12 11/29/17 11:12 General appearance: Present: average body habitus - Head Head Exam: Present: normal inspection, normocephalic - Respiratory Respiratory exam: Present: decreased breath sounds, CTAB - Cardiovascular Cardiovascular exam: Present: irregular rhythm - GI/Abdominal Exam GI/Abdominal exam: Present: distended, soft - Catheter Type: Urethral (Cope) - Extremities Exam Extremities exam: Present: normal capillary refill, normal inspection - Neurological Exam Additional comments: Patient currently on sedation. He opens eyes with stimulation. Answers some yes/no questions. Speech somewhat garbled. Restless when awake - Skin Skin exam: Present: dry, warm Internal Medicine - CN: Reslt - Labs CBC & Chem 7: 11/29/17 05:47 11/29/17 05:47 Labs: Short CBC 11/29/17 Range/Units 05:47 WBC 4.1 L (4.3-11.1) K/mcL Hgb 9.4 L D (12.9-16.9) g/dL Hct 29.6 L (37.5-50.1) % Plt Count 255 (140-400) K/mcL Neutrophils # 3.6 (1.6-8.9) K/mcL BMP 11/29/17 05:47 Sodium 137 Potassium 4.7 Chloride 102 Carbon Dioxide 32 H BUN 43 H Creatinine 0.81 Glucose 175 H Calcium 8.6 Cardiac Enzymes 11/28/17 Range/Units 17:16 Troponin I < 0.03 (< 0.04) ng/mL - ABG Interpretation ABG results: ABG ABG pH 7.42 pH Units (7.32-7.45) 11/29/17 08:09 ABG pCO2 49 mmHg (35-45) H 11/29/17 08:09 ABG pO2 99 mmHg (85-104) 11/29/17 08:09 ABG O2 Saturation 98 % (95-98) 11/29/17 08:09 Consult Discharge Plan - Plan Referrals: Fermín Akhtar MD [Primary Care Provider] - Palliative Quality Palliative Quality: Screen for Code Status: Yes, Screen for Goals of Care: Yes, Screen for Pain: Yes, If Pain Regimen Started, Initiate Bowel Regimen: NA, Screen for Nausea/Vomitting: Yes Code Status: 11/27/17 05:55 Resuscitation Status: Active [RES] Routine Comment: Resuscitation Status: Full Code
[2017-11-30] MEDS: Insulin LISPRO 300 UNITS/3 ML VIAL SQ SCH ×4 (00:44→18:37)
[2017-11-30] MEDS: MethylPREDNISolone 40 MG/ML VIAL IVP SCH ×3 (00:44→18:36)
[2017-11-30] MEDS: Dexmedetomidine HCl 400 MCG/100 ML MLS IVC SCH ×4 (02:15→22:21)
[2017-11-30 02:51] LABS: Basophils % 0.2 %; Hematocrit 33.1 % (37.5-50.1); Hemoglobin 10.6 g/dL (12.9-16.9); Immature Granulocytes % 1.5 % (0-4); Lymphocytes # 0.2 K/mcL (0.6-4.6); Lymphocytes % 4.4 %; Mean Corpuscular Volume 90.7 fL (83.0-100.0); Mean Platelet Volume 9.7 fL (9.4-12.4); Monocytes # 0.4 K/mcL (0.0-1.3); Monocytes % 8.1 %; Neutrophils # 4.5 K/mcL (1.6-8.9); Platelet Count 273 K/mcL (140-400); Red Blood Count 3.65 M/mcL (4.19-5.50); Red Cell Distribution Width 15.1 % (11.5-14.5); Segmented Neutrophils % 85.8 %
[2017-11-30] MEDS: Ipratropium/Albuterol Neb 3 ML IH SCH ×4 (03:33→22:56)
[2017-11-30 03:49] LABS: ABG Base Excess 8 mEq/L (-2 to 3); ABG HCO3 33 mEq/L (21-27); ABG Oxygen Saturation 99 % (95-98); ABG PCO2 50 mmHg (35-45); ABG PH 7.43 pH Units (7.32-7.45); ABG PO2 123 mmHg (85-104); ABG TCO2 35 mEq/L (20-26)
[2017-11-30 05:20] LABS: BUN/Creatinine Ratio 60 (6-26); Blood Urea Nitrogen 43 mg/dL (8-23); Calcium 8.4 mg/dL (8.6-10.3); Carbon Dioxide 30 mEq/L (23-29); Chloride 101 mEq/L (98-107); Glucose 181 mg/dL (70-105); Magnesium 2.1 mg/dL (1.6-2.6); Osmolality,Calculated 301 (280-300); Potassium 4.8 mEq/L (3.5-5.1); Sodium 138 mEq/L (136-145); eGFR For African Americans > 60 (> 60); eGFR For Non-African Americans > 60 (> 60)
[2017-11-30] MEDS: Cefepime HCl 2,000 MG in Water for inj. (sterile) 20 ML 20 ML IVP SCH ×2 (05:24→17:10)
[2017-11-30] MEDS: *HR* Enoxaparin 40 MG/0.4 ML SYRINGE SQ SCH (05:24)
[2017-11-30] MEDS: Famotidine 20 MG/2 ML VIAL IVP SCH ×2 (05:25→18:36)
--- NOTE | 2017-11-30 08:00 | Pulmonology Progress Note ---
<Bakari Rojo - Last Filed: 11/30/17 11:21> Date of Encounter: 11/30/17 Time of Encounter: 08:00 Assessment and Plan (1) Acute and chronic respiratory failure Current Visit: Yes Status: Acute Secondary to Pneumonia and Acute Exacerbation of COPD Previous admission (11/06-11/09/17) with multilobar pneumonia and Strep pneumoniae bacteremia discharged on levaquin CXR: multilobar pneumonia most pronounced on right lower lobe Labs in ED showed normal blood counts and electrolytes Initial ABG: pH 7.24, pCO2 78, and pHCO3 33 ABG today: pH 7.43, pCO2 50, PO2 123, pHCO3 33 Respiratory panel positive for Metapneumo virus Blood culture shows NGTD Continue Cefepime day 4/5. Discontinue Vancomycin Decrease steroids to q12h Continue BiPAP, steroids, and duonebs to Q6H Pt showing improvement - transfer out to Consult Palliative Care for goals of care - remains Full Code - Son is contacting family to further discuss plans and goals Speech consult to evaluate swallow Qualifiers: Respiratory failure complication: hypercapnia Qualified Code(s): J96.22 - Acute and chronic respiratory failure with hypercapnia (2) Acute exacerbation of chronic obstructive airways disease Current Visit: Yes Status: Acute (3) Pneumonia Current Visit: Yes Status: Acute Qualifiers: Pneumonia type: due to unspecified organism Laterality: right Lung location: lower lobe of lung Qualified Code(s): J18.1 - Lobar pneumonia, unspecified organism (4) Atrial fibrillation with controlled ventricular rate Current Visit: Yes Status: Acute Pt went into atrial fibrillation 11/27 - currently rate controlled Does not appear that the patient has a history of a.fib Will trend troponins <0.03 Currently on metoprolol 25 BID (home dose of 100 BID) CHADS-VASc score of 4 (age (2), HTN, DM) - currently on lovenox but will need further discussion of risk/benefits of anticoagulation before discharge (5) HTN (hypertension) Current Visit: Yes Status: Acute Metoprolol 25 BID currently - home dose of 100 BID Qualifiers: Hypertension type: essential hypertension Qualified Code(s): I10 - Essential (primary) hypertension (6) Diabetes type 2, controlled Current Visit: No Status: Acute Hold home meds, SSI Qualifiers: Diabetes mellitus complication status: without complication Diabetes mellitus penitentiary insulin use: without penitentiary use Qualified Code(s): E11.9 - Type 2 diabetes mellitus without complications Subjective Principal diagnosis: COPD, PNA Interval history: Pt seen and examined at bedside. Awakens easily and follows commands. Denies pain. Objective PUL Vital signs: Last Vital Signs Temp 96.2 F L 11/30/17 05:16 Pulse 80 11/30/17 06:05 Resp 24 11/30/17 06:05 BP 145/76 11/30/17 06:05 Pulse Ox 100 11/30/17 06:05 General appearance: no acute distress Eyes: nonicteric ENT: oropharynx moist Effort: normal Auscultation: bilateral: diminished breath sounds, rhonchi Cardiovascular: irregular rhythm Gastrointestinal: normoactive bowel sounds Integumentary: normal Extremities: no cyanosis, edema non-focal exam, pupils equal and round Ventilator Settings Ventilator Settings: Ventilator Settings, Last 8 Hours Ventilator Tidal Volume 500 Setting Results - Laboratory Findings CBC and BMP: 11/30/17 02:41 11/30/17 04:41 ABG ABG pH 7.43 pH Units (7.32-7.45) 11/30/17 03:46 ABG pCO2 50 mmHg (35-45) H 11/30/17 03:46 ABG pO2 123 mmHg (85-104) H 11/30/17 03:46 ABG O2 Saturation 99 % (95-98) H 11/30/17 03:46 Abnormal lab findings: Abnormal lab results RBC 3.65 M/mcL (4.19-5.50) L 11/30/17 02:41 Hgb 10.6 g/dL (12.9-16.9) L 11/30/17 02:41 Hct 33.1 % (37.5-50.1) L 11/30/17 02:41 RDW 15.1 % (11.5-14.5) H 11/30/17 02:41 Lymphocytes # 0.2 K/mcL (0.6-4.6) L 11/30/17 02:41 ABG pCO2 50 mmHg (35-45) H 11/30/17 03:46 ABG pO2 123 mmHg (85-104) H 11/30/17 03:46 ABG HCO3 33 mEq/L (21-27) H 11/30/17 03:46 ABG Total CO2 35 mEq/L (20-26) H 11/30/17 03:46 ABG O2 Saturation 99 % (95-98) H 11/30/17 03:46 ABG Base Excess 8 mEq/L (-2 to 3) H 11/30/17 03:46 Carbon Dioxide 30 mEq/L (23-29) H 11/30/17 04:41 BUN 43 mg/dL (8-23) H 11/30/17 04:41 BUN/Creatinine Ratio 60 (6-26) H 11/30/17 04:41 Glucose 181 mg/dL (70-105) H 11/30/17 04:41 POC Glucose 175 (58-89) H 11/30/17 05:07 Calculated Osmolality 301 (280-300) H 11/30/17 04:41 Calcium 8.4 mg/dL (8.6-10.3) L 11/30/17 04:41 Urine Clarity Slightly Cloudy (Clear) A 11/27/17 20:53 Urine Protein 30 mg/dL (Neg-Trace) H 11/27/17 20:53 Urine Ketones 15 mg/dL (Negative) H 11/27/17 20:53 Urine Blood Moderate (Negative) H 11/27/17 20:53 Urine Microscopic RBC 30-50 per hpf (0-3) H 11/27/17 20:53 Urine Microscopic WBC 5-15 per hpf (0-3) H 11/27/17 20:53 Ur Squamous Epith Cells Many per lpf (None-Few) H 11/27/17 20:53 Vancomycin Trough 8.7 mcg/mL (10-20) L 11/29/17 05:47 Human Metapneumovir PCR DETECTED (Not Detect) A 11/27/17 08:55 - Microbiology Findings Microbiology Findings: Microbiology, Last 48 Hours 11/27/17 06:31 Blood Culture - Preliminary Peripheral Venipuncture No growth. 11/27/17 06:29 Blood Culture - Preliminary Peripheral Venipuncture No growth. - Clinical Findings Intake & Output: Intake & Output 11/29/17 11/29/17 11/30/17 15:59 23:59 07:59 Intake Total 560 / 560 220 / 220 120 / 120 Output Total 960 / 960 800 / 800 200 / 200 Balance -400 / -400 -580 / -580 -80 / -80 Consult Discharge Plan - Plan Referrals: Fermín Akhtar MD [Primary Care Provider] - <KalidiomedesZuleima S - Last Filed: 11/30/17 23:19> Date of Encounter: 11/30/17 Objective PUL Vital signs: Last Vital Signs Temp 97.4 F L 11/30/17 19:04 Pulse 68 11/30/17 22:27 Resp 18 11/30/17 22:56 BP 146/76 11/30/17 22:27 Pulse Ox 94 11/30/17 22:56 Results - Laboratory Findings CBC and BMP: 11/30/17 02:41 11/30/17 04:41 ABG ABG pH 7.43 pH Units (7.32-7.45) 11/30/17 03:46 ABG pCO2 50 mmHg (35-45) H 11/30/17 03:46 ABG pO2 123 mmHg (85-104) H 11/30/17 03:46 ABG O2 Saturation 99 % (95-98) H 11/30/17 03:46 Abnormal lab findings: Abnormal lab results RBC 3.65 M/mcL (4.19-5.50) L 11/30/17 02:41 Hgb 10.6 g/dL (12.9-16.9) L 11/30/17 02:41 Hct 33.1 % (37.5-50.1) L 11/30/17 02:41 RDW 15.1 % (11.5-14.5) H 11/30/17 02:41 Lymphocytes # 0.2 K/mcL (0.6-4.6) L 11/30/17 02:41 ABG pCO2 50 mmHg (35-45) H 11/30/17 03:46 ABG pO2 123 mmHg (85-104) H 11/30/17 03:46 ABG HCO3 33 mEq/L (21-27) H 11/30/17 03:46 ABG Total CO2 35 mEq/L (20-26) H 11/30/17 03:46 ABG O2 Saturation 99 % (95-98) H 11/30/17 03:46 ABG Base Excess 8 mEq/L (-2 to 3) H 11/30/17 03:46 Carbon Dioxide 30 mEq/L (23-29) H 11/30/17 04:41 BUN 43 mg/dL (8-23) H 11/30/17 04:41 BUN/Creatinine Ratio 60 (6-26) H 11/30/17 04:41 Glucose 181 mg/dL (70-105) H 11/30/17 04:41 POC Glucose 158 (58-89) H 11/30/17 11:25 Calculated Osmolality 301 (280-300) H 11/30/17 04:41 Calcium 8.4 mg/dL (8.6-10.3) L 11/30/17 04:41 Urine Clarity Slightly Cloudy (Clear) A 11/27/17 20:53 Urine Protein 30 mg/dL (Neg-Trace) H 11/27/17 20:53 Urine Ketones 15 mg/dL (Negative) H 11/27/17 20:53 Urine Blood Moderate (Negative) H 11/27/17 20:53 Urine Microscopic RBC 30-50 per hpf (0-3) H 11/27/17 20:53 Urine Microscopic WBC 5-15 per hpf (0-3) H 11/27/17 20:53 Ur Squamous Epith Cells Many per lpf (None-Few) H 11/27/17 20:53 Vancomycin Trough 8.7 mcg/mL (10-20) L 11/29/17 05:47 Human Metapneumovir PCR DETECTED (Not Detect) A 11/27/17 08:55 - Clinical Findings Intake & Output: Intake & Output 11/30/17 11/30/17 11/30/17 07:59 15:59 23:59 Intake Total 120 / 120 340 / 340 465 / 465 Output Total 200 / 200 1950 / 1950 725 / 725 Balance -80 / -80 -1610 / -1610 -260 / -260 - Attending Attestation Attending Attestation Patient seen and examined at bedside Labs, radiology, chart personally reviewed. CAVALRY OFFICER:Patient is conscious oriented but has episodic confusion to continue precedex Pulm:Patient has Acute exacerbation of COPD complicated by multifocal bacterial pneumonia and Metapneumovurus infection since patient failed levquin started on broad spectrum antibitoics deescalated antibiotics . Patient has extensive wheezing causing V/Q mismatch and space ventilation will continue aggressive bronchodilator therapy. To continue BIPAP tonight . To finish 5 day course of Cefepime Cards:Patient is hemodynamically stable CXR shows some evidence of pulmonary congestion -to continue diuresis as tolerated FEN-GI:Diet when off BIPAP Renal:Labs and output reviewed ID:To continue broad spectrum antibiotics for multifocal pneumonia prior cultures grew streptococcus pneumoniae current cultures NGTD to complete the 5 day course of levofloxacin Heme/Onc:Labs reviewed will follow up Chest imaging in 8-12 weeks to document the RLL consolidative opacity is gone . Latest X ray shows improved right lung zone infiltrate Endo: Glucose Monitored Integ/MSK: Skin Care per routine ICU Nursing Protocol to prevent ulcers. Lines: All lines examined without evidence of infection : Dispo: Shift to 2N with sitter to continue BIPAP tonight CODE:Full Code
[2017-11-30] MEDS ORDERED: Furosemide 20 MG/2 ML VIAL IVP SCH (09:00)
--- NOTE | 2017-11-30 09:21 | Event Note ---
Date of Encounter: 11/30/17 Time of Encounter: 09:15 Patient remains sedated on Precedex. Can answer yes/no questions, other than than speech garbled and continues to be confused. As of this time, son ([place]ino ) has not been in contact with me regarding if they plan or are able to come to hospital. Chino has no transportation and has to rely on others. Will try and touch base with him later today to update on pt status.
[2017-11-30] MEDS ORDERED: Sennosides/Docusate Sodium TABLET PO SCH (10:00)
--- NOTE | 2017-11-30 13:21 | Palliative Progress Note ---
Date of Encounter: 11/30/17 Time of Encounter: 13:00 - Assessment and plan (1) Anxiety Current Visit: Yes Status: Acute Assessment and plan: Continues with Precedex per ICU protocol. (2) Dyspnea Current Visit: Yes Status: Acute Assessment and plan: Continues with steroids/atb/bronchodilators. MOnitor Qualifiers: Dyspnea type: unspecified Qualified Code(s): R06.00 - Dyspnea, unspecified (3) Goals of care, counseling/discussion Current Visit: Yes Status: Acute Assessment and plan: D/w son and daughter at bedside. Discussed clinical status and if patient had any previous known wishes. Son states that when he was in [place] a few weeks ago, he stated he did not want CPR or heart shocked if his heart stopped. He was ok with short term intubation, but would not want terminal operations supervisor life support or tracheostomy. Discussed DNRCC-Arrest/DNRCC. Family believes that his previous known intent would be in alignment with DNRCC-Arrest. We discussed that hopefully patient will eventually be able to participate in decision maker and we can further discuss. Family discussed that they would like him to complete advanced directives here when he is able. We will likely need rehab upon discharge. Get PT/OT involved once his respiratory status is more stable. MEGHANN Del Rosario also met with patient and family earlier today. Discussed different discharge options. At this point, they are not interested in discussing any type of hospice care. They are open to rehab stay or home health if needed. Will continue to follow. (4) Community acquired pneumonia Current Visit: No Status: Acute Qualifiers: Laterality: right Lung location: middle lobe of lung Qualified Code(s): J18.1 - Lobar pneumonia, unspecified organism (5) Acute exacerbation of chronic obstructive airways disease Current Visit: Yes Status: Acute (6) Atrial fibrillation with controlled ventricular rate Current Visit: Yes Status: Acute - Time Spent With Patient Total time spent is greater than 50% in coordination of care (as documented) at patient's floor/unit and/or counseling patient: - Subjective Interval history: Patient remains on Precedex - off bipap currently. Can answer some questions, but confused and not consistent. Patient's , son, daughter, and other family members at bedside. - Constitutional Vitals: Abnormal lab results RBC 3.65 M/mcL (4.19-5.50) L 11/30/17 02:41 Hgb 10.6 g/dL (12.9-16.9) L 11/30/17 02:41 Hct 33.1 % (37.5-50.1) L 11/30/17 02:41 RDW 15.1 % (11.5-14.5) H 11/30/17 02:41 Lymphocytes # 0.2 K/mcL (0.6-4.6) L 11/30/17 02:41 ABG pCO2 50 mmHg (35-45) H 11/30/17 03:46 ABG pO2 123 mmHg (85-104) H 11/30/17 03:46 ABG HCO3 33 mEq/L (21-27) H 11/30/17 03:46 ABG Total CO2 35 mEq/L (20-26) H 11/30/17 03:46 ABG O2 Saturation 99 % (95-98) H 11/30/17 03:46 ABG Base Excess 8 mEq/L (-2 to 3) H 11/30/17 03:46 Carbon Dioxide 30 mEq/L (23-29) H 11/30/17 04:41 BUN 43 mg/dL (8-23) H 11/30/17 04:41 BUN/Creatinine Ratio 60 (6-26) H 11/30/17 04:41 Glucose 181 mg/dL (70-105) H 11/30/17 04:41 POC Glucose 158 (58-89) H 11/30/17 11:25 Calculated Osmolality 301 (280-300) H 11/30/17 04:41 Calcium 8.4 mg/dL (8.6-10.3) L 11/30/17 04:41 Urine Clarity Slightly Cloudy (Clear) A 11/27/17 20:53 Urine Protein 30 mg/dL (Neg-Trace) H 11/27/17 20:53 Urine Ketones 15 mg/dL (Negative) H 11/27/17 20:53 Urine Blood Moderate (Negative) H 11/27/17 20:53 Urine Microscopic RBC 30-50 per hpf (0-3) H 11/27/17 20:53 Urine Microscopic WBC 5-15 per hpf (0-3) H 11/27/17 20:53 Ur Squamous Epith Cells Many per lpf (None-Few) H 11/27/17 20:53 Vancomycin Trough 8.7 mcg/mL (10-20) L 11/29/17 05:47 Human Metapneumovir PCR DETECTED (Not Detect) A 11/27/17 08:55 General appearance: Present: no acute distress - Respiratory Respiratory exam: Present: decreased breath sounds, CTAB - Cardiovascular Cardiovascular exam: Present: irregular rhythm - GI/Abdominal GI/Abdominal exam: Present: normal bowel sounds, soft - Extremities Exam Extremities exam: Present: normal capillary refill, normal inspection - Neurological Exam Neurological exam: Present: alert, strengths equal and symetr throughout ( Follows simple commands, becomes agitated/anxious with much stimulation) - Skin Skin exam: Present: pallor, warm Palliative Quality Palliative Quality: Screen for Code Status: Yes, Screen for Goals of Care: Yes, Screen for Pain: Yes, If Pain Regimen Started, Initiate Bowel Regimen: NA, Screen for Nausea/Vomitting: Yes Code Status: 11/27/17 05:55 Resuscitation Status: Active [RES] Routine Comment: Resuscitation Status: Full Code 11/30/17 13:05 DNR [Resuscitation Status: Active] [RES] Routine Comment: Resuscitation Status: DNR-Comfort Care-Arrest - Labs CBC & Chem 7: 11/30/17 02:41 11/30/17 04:41 Labs: Laboratory Results - last 24 hr 11/29/17 11/29/17 11/30/17 18:11 23:33 02:41 WBC 5.2 RBC 3.65 L Hgb 10.6 L Hct 33.1 L MCV 90.7 MCH 29.0 MCHC 32.0 RDW 15.1 H Plt Count 273 MPV 9.7 Immature Gran % 1.5 Seg Neutrophils % 85.8 Lymphocytes % 4.4 Monocytes % 8.1 Eosinophils % 0.0 Basophils % 0.2 Neutrophils # 4.5 Lymphocytes # 0.2 L Monocytes # 0.4 Eosinophils # 0.0 Basophils # 0.0 Sample Site ABG pH ABG pCO2 ABG pO2 ABG HCO3 ABG Total CO2 ABG O2 Saturation ABG Base Excess Raymond Test O2 Delivery Device Inspired O2 Sodium Potassium Chloride Carbon Dioxide BUN Creatinine Est GFR ( Amer) Est GFR (Non-Af Amer) BUN/Creatinine Ratio Glucose POC Glucose 257 H 177 H Calculated Osmolality Lactic Acid Calcium Magnesium 11/30/17 11/30/17 11/30/17 02:41 03:46 04:41 WBC RBC Hgb Hct MCV MCH MCHC RDW Plt Count MPV Immature Gran % Seg Neutrophils % Lymphocytes % Monocytes % Eosinophils % Basophils % Neutrophils # Lymphocytes # Monocytes # Eosinophils # Basophils # Sample Site L Radial ABG pH 7.43 ABG pCO2 50 H ABG pO2 123 H ABG HCO3 33 H ABG Total CO2 35 H ABG O2 Saturation 99 H ABG Base Excess 8 H Raymond Test Positive O2 Delivery Device BiPAP Inspired O2 45.0 Sodium 138 Potassium 4.8 Chloride 101 Carbon Dioxide 30 H BUN 43 H Creatinine 0.72 Est GFR ( Amer) > 60 Est GFR (Non-Af Amer) > 60 BUN/Creatinine Ratio 60 H Glucose 181 H POC Glucose Calculated Osmolality 301 H Lactic Acid 1.4 Calcium 8.4 L Magnesium 2.1 11/30/17 11/30/17 05:07 11:25 WBC RBC Hgb Hct MCV MCH MCHC RDW Plt Count MPV Immature Gran % Seg Neutrophils % Lymphocytes % Monocytes % Eosinophils % Basophils % Neutrophils # Lymphocytes # Monocytes # Eosinophils # Basophils # Sample Site ABG pH ABG pCO2 ABG pO2 ABG HCO3 ABG Total CO2 ABG O2 Saturation ABG Base Excess Raymond Test O2 Delivery Device Inspired O2 Sodium Potassium Chloride Carbon Dioxide BUN Creatinine Est GFR ( Amer) Est GFR (Non-Af Amer) BUN/Creatinine Ratio Glucose POC Glucose 175 H 158 H Calculated Osmolality Lactic Acid Calcium Magnesium - ABG Interpretation ABG results: ABG ABG pH 7.43 pH Units (7.32-7.45) 11/30/17 03:46 ABG pCO2 50 mmHg (35-45) H 11/30/17 03:46 ABG pO2 123 mmHg (85-104) H 11/30/17 03:46 ABG O2 Saturation 99 % (95-98) H 11/30/17 03:46 Consult Discharge Plan - Plan Referrals: Fermín Akhtar MD [Primary Care Provider] -
[2017-11-30] MEDS ORDERED: Naloxone 0.4 MG/ML INJ IVP PRN (14:57)
[2017-11-30] MEDS ORDERED: *HR* Dextrose 50 % in Water (Syg) 50 ML SYRINGE IVP PRN (14:57)
[2017-11-30] MEDS ORDERED: D5% in Water 1,000 ML IVC PRN (14:57)
[2017-11-30] MEDS ORDERED: Ondansetron 4 MG/2 ML VIAL IVP PRN (14:57)
[2017-11-30] MEDS ORDERED: Dextrose Gel 15 GM/37.5 ML TUBE PO PRN ×2 (14:57)
[2017-11-30] MEDS: Furosemide 20 MG/2 ML VIAL IVP SCH (17:11)
[2017-11-30] MEDS ORDERED: MethylPREDNISolone 40 MG/ML VIAL IVP SCH (18:00)
[2017-11-30] MEDS: Sennosides/Docusate Sodium TABLET PO SCH (20:54)
[2017-12-01] MEDS: Insulin LISPRO 300 UNITS/3 ML VIAL SQ SCH ×5 (00:13→21:40)
[2017-12-01] MEDS: Cefepime HCl 2,000 MG in Water for inj. (sterile) 20 ML 20 ML IVP SCH (04:08)
[2017-12-01] MEDS: Ipratropium/Albuterol Neb 3 ML IH SCH ×4 (04:32→22:33)
[2017-12-01] MEDS: *HR* Metoprolol 5 MG/5 ML VIAL IVP PRN (04:36)
[2017-12-01] MEDS: Famotidine 20 MG/2 ML VIAL IVP SCH (05:43)
[2017-12-01] MEDS: MethylPREDNISolone 40 MG/ML VIAL IVP SCH ×2 (05:47→17:36)
[2017-12-01] MEDS: Dexmedetomidine HCl 400 MCG/100 ML MLS IVC SCH (05:50)
[2017-12-01] MEDS ORDERED: *HR* Enoxaparin 40 MG/0.4 ML SYRINGE SQ SCH (06:00)
[2017-12-01 06:27] LABS: BUN/Creatinine Ratio 58 (6-26); Blood Urea Nitrogen 33 mg/dL (8-23); Calcium 8.3 mg/dL (8.6-10.3); Carbon Dioxide 34 mEq/L (23-29); Chloride 97 mEq/L (98-107); Glucose 165 mg/dL (70-105); Osmolality,Calculated 291 (280-300); Potassium 4.5 mEq/L (3.5-5.1); Sodium 135 mEq/L (136-145); eGFR For African Americans > 60 (> 60); eGFR For Non-African Americans > 60 (> 60)
[2017-12-01 06:28] LABS: Basophils % 0.5 %; Hematocrit 32.8 % (37.5-50.1); Hemoglobin 10.3 g/dL (12.9-16.9); Immature Granulocytes % 3.7 % (0-4); Lymphocytes # 0.3 K/mcL (0.6-4.6); Lymphocytes % 5.1 %; Mean Corpuscular HGB Conc 31.4 g/dL (31.6-35.5); Mean Corpuscular Hemoglobin 28.4 pg (28.0-33.3); Mean Corpuscular Volume 90.4 fL (83.0-100.0); Mean Platelet Volume 9.6 fL (9.4-12.4); Monocytes # 0.5 K/mcL (0.0-1.3); Monocytes % 9.2 %; Neutrophils # 4.5 K/mcL (1.6-8.9); Platelet Count 277 K/mcL (140-400); Red Blood Count 3.63 M/mcL (4.19-5.50); Red Cell Distribution Width 14.9 % (11.5-14.5); Segmented Neutrophils % 81.5 %
[2017-12-01] MEDS: Sennosides/Docusate Sodium TABLET PO SCH ×2 (08:57→19:55)
[2017-12-01] MEDS: Furosemide 20 MG/2 ML VIAL IVP SCH (08:57)
--- NOTE | 2017-12-01 11:12 | Palliative Progress Note ---
Date of Encounter: 12/01/17 Time of Encounter: 10:00 - Assessment and plan (1) Anxiety Current Visit: Yes Status: Acute Assessment and plan: Precedex being decreased. He appears calm this am. (2) Dyspnea Current Visit: Yes Status: Acute Assessment and plan: Still dyspneic with much conversation. Continues with o2/bipap/steriods/atb treatment for pneumonia/COPD Qualifiers: Dyspnea type: unspecified Qualified Code(s): R06.00 - Dyspnea, unspecified (3) Goals of care, counseling/discussion Current Visit: Yes Status: Acute Assessment and plan: Patient oriented and speech is clear today. Updated him on last few days events , as he has very little recollections of how he got here. Discussed goals of care - he conveyed same information that sonBentley provided yesterday - he does not want resuscitation for cardiac arrest (NO CPR/Defib/ACLS). Discussed intubation and he would desire this if it were short term to get him over a crisis, but he would not want supervisor intermediates intubation and would not want tracheostomy. He would like to complete advanced directives/POA prior to going home, and desires to make geeta Hagan, power of consumer attorney. He states family coming in today, so will revisit at that time. (4) Community acquired pneumonia Current Visit: No Status: Acute Qualifiers: Laterality: right Lung location: middle lobe of lung Qualified Code(s): J18.1 - Lobar pneumonia, unspecified organism (5) Acute exacerbation of chronic obstructive airways disease Current Visit: Yes Status: Acute (6) Atrial fibrillation with controlled ventricular rate Current Visit: Yes Status: Acute - Time Spent With Patient Total time spent is greater than 50% in coordination of care (as documented) at patient's floor/unit and/or counseling patient: 25 - 35 minutes - Subjective Interval history: Patient awake/alert, and oriented today. Cannot recall much of last few days, but knows he is in the hospital and answers all questions appropriately. Denies pain or discomfort. States breathing is better, but he does appear dyspneic with conversation. No family present. - Constitutional Vitals: Abnormal lab results RBC 3.63 M/mcL (4.19-5.50) L 12/01/17 05:53 Hgb 10.3 g/dL (12.9-16.9) L 12/01/17 05:53 Hct 32.8 % (37.5-50.1) L 12/01/17 05:53 MCHC 31.4 g/dL (31.6-35.5) L 12/01/17 05:53 RDW 14.9 % (11.5-14.5) H 12/01/17 05:53 Lymphocytes # 0.3 K/mcL (0.6-4.6) L 12/01/17 05:53 ABG pCO2 50 mmHg (35-45) H 11/30/17 03:46 ABG pO2 123 mmHg (85-104) H 11/30/17 03:46 ABG HCO3 33 mEq/L (21-27) H 11/30/17 03:46 ABG Total CO2 35 mEq/L (20-26) H 11/30/17 03:46 ABG O2 Saturation 99 % (95-98) H 11/30/17 03:46 ABG Base Excess 8 mEq/L (-2 to 3) H 11/30/17 03:46 Sodium 135 mEq/L (136-145) L 12/01/17 05:53 Chloride 97 mEq/L (98-107) L 12/01/17 05:53 Carbon Dioxide 34 mEq/L (23-29) H 12/01/17 05:53 BUN 33 mg/dL (8-23) H 12/01/17 05:53 Creatinine 0.57 mg/dL (0.70-1.30) L 12/01/17 05:53 BUN/Creatinine Ratio 58 (6-26) H 12/01/17 05:53 Glucose 165 mg/dL (70-105) H 12/01/17 05:53 POC Glucose 158 (58-89) H 11/30/17 11:25 Calcium 8.3 mg/dL (8.6-10.3) L 12/01/17 05:53 Urine Clarity Slightly Cloudy (Clear) A 11/27/17 20:53 Urine Protein 30 mg/dL (Neg-Trace) H 11/27/17 20:53 Urine Ketones 15 mg/dL (Negative) H 11/27/17 20:53 Urine Blood Moderate (Negative) H 11/27/17 20:53 Urine Microscopic RBC 30-50 per hpf (0-3) H 11/27/17 20:53 Urine Microscopic WBC 5-15 per hpf (0-3) H 11/27/17 20:53 Ur Squamous Epith Cells Many per lpf (None-Few) H 11/27/17 20:53 Vancomycin Trough 8.7 mcg/mL (10-20) L 11/29/17 05:47 Human Metapneumovir PCR DETECTED (Not Detect) A 11/27/17 08:55 General appearance: Present: no acute distress - Respiratory Respiratory exam: Present: decreased breath sounds, CTAB Additional comments: Faint expiratory wheezes noted - Cardiovascular Cardiovascular exam: Present: irregular rhythm - GI/Abdominal GI/Abdominal exam: Present: normal bowel sounds, soft - Extremities Exam Extremities exam: Present: normal capillary refill, normal inspection - Neurological Exam Neurological exam: Present: alert, strengths equal and symetr throughout Additional comments: Oriented to person and place - needs oriented to time. Knows President. Can answer questions appropriately. - Skin Skin exam: Present: dry, warm Palliative Quality Palliative Quality: Screen for Code Status: Yes, Screen for Goals of Care: Yes, Screen for Pain: Yes, If Pain Regimen Started, Initiate Bowel Regimen: NA, Screen for Nausea/Vomitting: Yes Code Status: 11/27/17 05:55 Resuscitation Status: Active [RES] Routine Comment: Resuscitation Status: Full Code 11/30/17 13:05 DNR [Resuscitation Status: Active] [RES] Routine Comment: Resuscitation Status: DNR-Comfort Care-Arrest - Labs CBC & Chem 7: 12/01/17 05:53 12/01/17 05:53 Labs: Laboratory Results - last 24 hr 11/30/17 12/01/17 12/01/17 11:25 05:53 05:53 WBC 5.5 RBC 3.63 L Hgb 10.3 L Hct 32.8 L MCV 90.4 MCH 28.4 MCHC 31.4 L RDW 14.9 H Plt Count 277 MPV 9.6 Immature Gran % 3.7 Seg Neutrophils % 81.5 Lymphocytes % 5.1 Monocytes % 9.2 Eosinophils % 0.0 Basophils % 0.5 Neutrophils # 4.5 Lymphocytes # 0.3 L Monocytes # 0.5 Eosinophils # 0.0 Basophils # 0.0 Sodium 135 L Potassium 4.5 Chloride 97 L Carbon Dioxide 34 H BUN 33 H Creatinine 0.57 L Est GFR ( Amer) > 60 Est GFR (Non-Af Amer) > 60 BUN/Creatinine Ratio 58 H Glucose 165 H POC Glucose 158 H Calculated Osmolality 291 Calcium 8.3 L - ABG Interpretation ABG results: ABG ABG pH 7.43 pH Units (7.32-7.45) 11/30/17 03:46 ABG pCO2 50 mmHg (35-45) H 11/30/17 03:46 ABG pO2 123 mmHg (85-104) H 11/30/17 03:46 ABG O2 Saturation 99 % (95-98) H 11/30/17 03:46 Consult Discharge Plan - Plan Referrals: Fermín Akhtar MD [Primary Care Provider] - 12/18/17 8:30 am
--- NOTE | 2017-12-01 12:11 | Internal Med Progress Note ---
Date of Encounter: 12/01/17 Time of Encounter: 12:09 - Assessment and plan (1) Acute and chronic respiratory failure Current Visit: Yes Status: Acute Assessment and plan: Likely secondary to an acute exacerbation of COPD and multilobar pneumonia. We will treat the underlying cause and wean down oxygen as tolerated. Plan is as below Qualifiers: Respiratory failure complication: hypercapnia Qualified Code(s): J96.22 - Acute and chronic respiratory failure with hypercapnia (2) Acute exacerbation of chronic obstructive airways disease Current Visit: Yes Status: Acute Assessment and plan: Continue with IV steroids 40 mg IV every 12 hours. We will switch to by mouth tomorrow. Continue with nebulizers. Wean down oxygen as tolerated. Antibiotics have been switched to Levaquin. (3) Atrial fibrillation with controlled ventricular rate Current Visit: Yes Status: Acute Assessment and plan: New onset. Check an echocardiogram. Consult cardiology for recommendations regarding anticoagulation. Continue with beta dino. We will add an aspirin for now. (4) HTN (hypertension) Current Visit: Yes Status: Acute Assessment and plan: Blood pressure is elevated. It is 153/108. Patient usually takes metoprolol tartrate 100 mg twice a day as well as Norvasc 10 mg daily and losartan 100 mg daily.. He is only on metoprolol 25 mg twice a day and his losartan and Norvasc have not been restarted. I will put the patient on his regularly dosed antihypertensives for now. Qualifiers: Hypertension type: essential hypertension Qualified Code(s): I10 - Essential (primary) hypertension (5) Diabetes type 2, controlled Current Visit: No Status: Acute Assessment and plan: Continue with insulin sliding scale. Continue with Accu-Cheks. Glucose well- controlled. Qualifiers: Diabetes mellitus complication status: without complication Diabetes mellitus ferry terminal agent insulin use: without fci use Qualified Code(s): E11.9 - Type 2 diabetes mellitus without complications (6) DVT prophylaxis Current Visit: Yes Status: Acute Assessment and plan: Lovenox - Subjective Interval history: Patient was seen and examined. No acute events. Has been afebrile. 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 Admitted with acute hypoxic respiratory failure secondary to multilobar pneumonia. Has been maintained on IV antibiotics broad spectrum as well as IV steroids. Has required BiPAP on and off but has been on 5 L of nasal cannula oxygen while on the stepdown unit on 2 N. Stay was complicated by new onset A. fib. Patient states that he is feeling better. Palliative is following. No chest pain. - Constitutional Vitals: Temp Pulse Resp BP Pulse Ox 97.8 F 75 18 153/108 94 12/01/17 11:00 12/01/17 11:00 12/01/17 11:20 12/01/17 11:00 12/01/17 11:20 Exam: GEN: NAD CVS: Irregular. S1, S2, No m/r/g RESP: Diminished with coarse breath sounds bilaterally. ABD: Soft, NT, ND, +BS EXT: No edema. 2+ DP. No rashes NEURO: Nonfocal Internal Medicine: Result - Labs CBC & Chem 7: 12/01/17 05:53 12/01/17 05:53 Labs: Short CBC 12/01/17 Range/Units 05:53 WBC 5.5 (4.3-11.1) K/mcL Hgb 10.3 L (12.9-16.9) g/dL Hct 32.8 L (37.5-50.1) % Plt Count 277 (140-400) K/mcL Neutrophils # 4.5 (1.6-8.9) K/mcL BMP 12/01/17 05:53 Sodium 135 L Potassium 4.5 Chloride 97 L Carbon Dioxide 34 H BUN 33 H Creatinine 0.57 L Glucose 165 H Calcium 8.3 L - ABG Interpretation ABG results: ABG ABG pH 7.43 pH Units (7.32-7.45) 11/30/17 03:46 ABG pCO2 50 mmHg (35-45) H 11/30/17 03:46 ABG pO2 123 mmHg (85-104) H 11/30/17 03:46 ABG O2 Saturation 99 % (95-98) H 11/30/17 03:46 Consult Discharge Plan - Plan Referrals: Fermín Akhtar MD [Primary Care Provider] - 12/18/17 8:30 am
[2017-12-01] MEDS: Aspirin Enteric Coated 81 MG Tablet PO SCH (12:38)
[2017-12-01] MEDS: Levofloxacin 500 MG/100 ML 500 MG/100 ML BAG IVPB SCH (12:38)
--- NOTE | 2017-12-01 14:35 | Cardiology Consult Note ---
Addendum entered and electronically signed by Virgil Will CNP 12/01/17 15:06 : Eliquis RX sent to [facility]. RX cost 47$. Discussed with patient and he is okay with cost. If no significant abnormal finding on echocardiogram start eliquis 5 mg BID. No further cardiac work-up would be recommended. Continue lopressor for rate control. Out patient f/u will be scheduled in 2-3 weeks. Original Note: <Virgil Will - Last Filed: 12/01/17 14:25> Date of Encounter: 12/01/17 Time of Encounter: 14:25 Assessment and Plan (1) Atrial fibrillation with controlled ventricular rate Current Visit: Yes Status: Acute New onset atrial fibrillation with RVR in the setting of respiratory distress in the setting of COPD/PNA. No previous history. He is currently rate controlled with HR 80-90. CHADS VASc=4 (HTN, DM, Age2). I discussed AC with coumadin vs NOAC. He agrees to AC. Check TTE. Start lovenox. I will send eliquis to his pharmacy for [place] check. Discussion w patient/family: The assessment and plan as outlined above was discussed with the patient and/or family members who expressed understanding and agreement. All questions were answered. Thank you for involving us in the care of your patient. Please call with any questions. History of Present Illness Consult date: 12/01/17 Requesting physician: Fran Mosher Consult reason: afib Chief complaint: SOB History of present illness: Mr. Stephen is a 82 year old male who presented to OSH with increased SOB. He was diagnosed with pneumonia and acute COPD exacerbation and transferred to [place] for further treatment. Cardiology consulted for atrial fibrillation that developed during hospital stay. Initial EKG shows SR. Past medical history is significant for HTN, DM type II, and COPD. Patient denies history of afib. He is currently rate controlled. He denies chest pain or palpitations. Denies edema. Continues to have difficulty breathing. Past Med Surg Social Fam HX - Past Medical History Medical history: COPD, diabetes, hyperlipidemia, hypertension Psychiatric history: no psych history - Social History Smoking Status: Current every day smoker Smokeless Tobacco Status: No Alcohol use: none Drug use: none - Family History Grandmother Living Status: Hx Family Neurologic Disorders: Yes (stroke) Mother Living Status: Hx Family Cardiac Disorders: Yes (heart failure) Medications and Allergies Albuterol Sulfate [Ventolin Hfa] 18 gm IH Q4-6H PRN 11/06/17 [History] Losartan Potassium [Cozaar] 100 mg PO DAILY 11/06/17 [History] Metoprolol Tartrate [Lopressor] 100 mg PO BID 11/06/17 [History] Simvastatin [Zocor] 20 mg PO HS 11/06/17 [History] Tiotropium [Spiriva] 18 mcg IH 0700 11/06/17 [History] Torsemide 5 mg PO DAILY 11/06/17 [History] amLODIPine [Norvasc] 10 mg PO DAILY 11/06/17 [History] metFORMIN [Glucophage] 850 mg PO BIDWM 11/06/17 [History] Budesonide/Formoterol 160/4.5 [Symbicort 160/4.5] 1 puff IH AD 11/27/17 [History ] 3 Allergy/AdvReac Type Severity Reaction Status Date / Time No Known Allergies Allergy Verified 11/27/17 02:05 All Systems Review: A 10-system review of systems was performed and is negative for pertinent findings except as documented above in the HPI. Physical Examination Vital Signs, Last 4 Hours Temp Pulse Resp BP Pulse Ox 12/01/17 14:04 91 146/116 12/01/17 13:00 148/88 12/01/17 12:00 85 154/89 12/01/17 11:20 18 94 12/01/17 11:00 97.8 F 75 24 153/108 93 General: Conversant, No Apparent Distress HEENT: Atraumatic, Normocephaly, Mucus Membranes Moist Neck: No JVD, Normal carotid pulses Cardiac: Other (irregularly irregular) Lungs: Other (Respirations labored. Expiratory wheezes and rhonci throughout. ) Neuro: Alert and responsive, No focal deficits noted Abdomen: Soft, Non-Tender Skin: No rashes noted on visualized skin Musculoskeletal: No Chest Wall Tenderness Extremities: No Clubbing, No Cyanosis, No Edema, Normal Pulses Results 12/01/17 05:53 12/01/17 05:53 Lab Results 12/01/17 12/01/17 05:53 05:53 WBC 5.5 Hgb 10.3 L Hct 32.8 L Plt Count 277 Sodium 135 L Potassium 4.5 Chloride 97 L Carbon Dioxide 34 H BUN 33 H Creatinine 0.57 L Glucose 165 H Calcium 8.3 L - Imaging and Cardiology Echo: pending - EKG Interpretation EKG results cardiology: personally reviewed Consult Discharge Plan - Plan Referrals: Fermín Akhtar MD [Primary Care Provider] - 12/18/17 8:30 am <BernabeHector Magana - Last Filed: 12/01/17 17:13> Date of Encounter: 12/01/17 - Attending Attestation I have personally performed a face to face evaluation on this patient. I have reviewed and agree with the care plan. History and Exam by me shows: New onset AF. Agree with rate control and anticoagulation. Assessment and Plan Discussion w patient/family: The assessment and plan as outlined above was discussed with the patient and/or family members who expressed understanding and agreement. All questions were answered. Thank you for involving us in the care of your patient. Please call with any questions. History of Present Illness History of present illness: Mr. Stephen is a 82 year old male All Systems Review: A 10-system review of systems was performed and is negative for pertinent findings except as documented above in the HPI. Physical Examination Vital Signs, Last 4 Hours Temp Pulse Resp BP Pulse Ox 12/01/17 16:35 16 97 12/01/17 16:25 98.5 F 109 22 162/93 96 12/01/17 14:04 91 146/116 Results 12/01/17 05:53 12/01/17 05:53 Lab Results 12/01/17 12/01/17 05:53 05:53 WBC 5.5 Hgb 10.3 L Hct 32.8 L Plt Count 277 Sodium 135 L Potassium 4.5 Chloride 97 L Carbon Dioxide 34 H BUN 33 H Creatinine 0.57 L Glucose 165 H Calcium 8.3 L
[2017-12-01] MEDS: *HR* Enoxaparin 80 MG/0.8 ML SYRINGE SQ SCH (17:36)
[2017-12-01] MEDS: Metoprolol 100 MG TABLET PO SCH (19:55)
[2017-12-02 04:20] LABS: Basophils # 0.1 K/mcL (0.0-0.2); Basophils % 0.7 %; Hematocrit 38.1 % (37.5-50.1); Immature Granulocytes % 5.3 % (0-4); Lymphocytes # 0.6 K/mcL (0.6-4.6); Lymphocytes % 5.7 %; Mean Corpuscular HGB Conc 31.8 g/dL (31.6-35.5); Mean Corpuscular Hemoglobin 28.6 pg (28.0-33.3); Mean Corpuscular Volume 90.1 fL (83.0-100.0); Mean Platelet Volume 9.8 fL (9.4-12.4); Monocytes # 0.9 K/mcL (0.0-1.3); Monocytes % 8.5 %; Neutrophils # 8.1 K/mcL (1.6-8.9); Nucleated Red Blood Cells 0.2 /100 WBC (0); Platelet Count 370 K/mcL (140-400); Red Blood Count 4.23 M/mcL (4.19-5.50); Red Cell Distribution Width 15.1 % (11.5-14.5); Segmented Neutrophils % 79.8 %
[2017-12-02] MEDS: *HR* Metoprolol 5 MG/5 ML VIAL IVP PRN ×2 (04:27→11:53)
[2017-12-02] MEDS: Ipratropium/Albuterol Neb 3 ML IH SCH ×4 (04:34→23:04)
[2017-12-02 04:37] LABS: Hemoglobin 12.1 g/dL (12.9-16.9)
[2017-12-02 04:39] LABS: Platelet Estimate Normal (Normal)
[2017-12-02 04:40] LABS: Anisocytosis 1+ (Not Present)
[2017-12-02] MEDS: *HR* Enoxaparin 80 MG/0.8 ML SYRINGE SQ SCH (06:45)
[2017-12-02] MEDS: MethylPREDNISolone 40 MG/ML VIAL IVP SCH (06:45)
[2017-12-02] MEDS: Torsemide 20 MG TABLET PO SCH (08:00)
[2017-12-02] MEDS: Sennosides/Docusate Sodium TABLET PO SCH ×2 (08:00→20:17)
[2017-12-02] MEDS: Aspirin Enteric Coated 81 MG Tablet PO SCH (08:00)
[2017-12-02] MEDS: amLODIPine 5 MG TABLET PO SCH (08:00)
[2017-12-02] MEDS: Metoprolol 100 MG TABLET PO SCH ×2 (08:00→20:17)
[2017-12-02] MEDS: Insulin LISPRO 300 UNITS/3 ML VIAL SQ SCH ×4 (08:05→20:13)
--- NOTE | 2017-12-02 10:31 | Event Note ---
Date of Encounter: 12/02/17 Time of Encounter: 10:29 - Cardiology Event Note Echo resulted--LVEF 60%. Indeterminate diastolic function. Mild concentric left ventricular hypertrophy. Normal right ventricular structure and function. Doppler of the aortic valve is not well obtained. Visually, it appears calcified with restriction of leaflet motion. Mild tricuspid regurgitation. Mild pulmonary hypertension by TR gradient. No significant findings, EF preserved. Will start Eliquis 5mg BID for anticoagulation per consult note yesterday. Cardiology signing off. Reconsult PRN. Will coordinate outpt follow- up in 2-3 weeks.
--- NOTE | 2017-12-02 12:06 | Internal Med Progress Note ---
Date of Encounter: 12/02/17 Time of Encounter: 11:00 - Assessment and plan (1) Acute and chronic respiratory failure Current Visit: Yes Status: Acute Assessment and plan: Likely secondary to an acute exacerbation of COPD and multilobar pneumonia. We will treat the underlying cause and wean down oxygen as tolerated. Plan is as below Qualifiers: Respiratory failure complication: hypercapnia Qualified Code(s): J96.22 - Acute and chronic respiratory failure with hypercapnia (2) Acute exacerbation of chronic obstructive airways disease Current Visit: Yes Status: Acute Assessment and plan: switch to oral prednisone 40 mg daily. Continue with nebulizers. Wean down oxygen as tolerated. Antibiotics have been switched to Levaquin. (3) Atrial fibrillation with controlled ventricular rate Current Visit: Yes Status: Acute Assessment and plan: New onset. started on eliquis for anticoag. Continue with beta dino. echo with LVEF 60%. mild TR and mild pulm htn. (4) HTN (hypertension) Current Visit: Yes Status: Acute Assessment and plan: Blood pressure is elevated still. increase metoprolol to 125 mg BID from 100 mg BID. c/w Norvasc 10 mg daily and losartan 100 mg daily. will add hydralazine IV PRN. Qualifiers: Hypertension type: essential hypertension Qualified Code(s): I10 - Essential (primary) hypertension (5) Diabetes type 2, controlled Current Visit: No Status: Acute Assessment and plan: Continue with insulin sliding scale. Continue with Accu-Cheks. Glucose well- controlled. Qualifiers: Diabetes mellitus complication status: without complication Diabetes mellitus senior living insulin use: without senior living use Qualified Code(s): E11.9 - Type 2 diabetes mellitus without complications (6) DVT prophylaxis Current Visit: Yes Status: Acute Assessment and plan: eliquis - Subjective Interval history: Patient was seen and examined. No acute events. Has been afebrile. On room air satting well. Patient was admitted a few days ago under the handbag stitcher service transferred out of the ICU yesterday. Admitted with acute hypoxic respiratory failure secondary to multilobar pneumonia. Has been maintained on IV antibiotics broad spectrum as well as IV steroids. Has required BiPAP on and off and then been on nasal cannula. Stay was complicated by new onset A. fib. Patient states that he is feeling better. Palliative is following. No chest pain. - Constitutional Vitals: Temp Pulse Resp BP Pulse Ox 98.4 F 107 20 160/103 95 12/02/17 11:18 12/02/17 11:18 12/02/17 11:18 12/02/17 11:18 12/02/17 11:18 Exam: GEN: NAD CVS: Irregular. S1, S2, No m/r/g RESP: Diminished with coarse breath sounds bilaterally. ABD: Soft, NT, ND, +BS EXT: No edema. 2+ DP. No rashes NEURO: Nonfocal Internal Medicine: Result - Labs CBC & Chem 7: 12/02/17 03:59 12/01/17 05:53 Labs: Short CBC 12/02/17 Range/Units 03:59 WBC 10.2 D (4.3-11.1) K/mcL Hgb 12.1 L D (12.9-16.9) g/dL Hct 38.1 (37.5-50.1) % Plt Count 370 (140-400) K/mcL Neutrophils # 8.1 (1.6-8.9) K/mcL - ABG Interpretation ABG results: ABG ABG pH 7.43 pH Units (7.32-7.45) 11/30/17 03:46 ABG pCO2 50 mmHg (35-45) H 11/30/17 03:46 ABG pO2 123 mmHg (85-104) H 11/30/17 03:46 ABG O2 Saturation 99 % (95-98) H 11/30/17 03:46 - Impressions Impressions Echocardiogram 12/01/17 12:06 Impressions: LVEF 60%. Indeterminate diastolic function. Mild concentric left ventricular hypertrophy. Normal right ventricular structure and function. Doppler of the aortic valve is not well obtained. Visually, it appears calcified with restriction of leaflet motion. Mild tricuspid regurgitation. Mild pulmonary hypertension by TR gradient. Pleural effusion is not well visualized on this study. Left Ventricular Wall Motion: Rest Echo Findings All wall segments showed normal motion. Findings: Study Quality * Technically adequate exam. ECG Findings * Consider atrial fibrillation. Left Ventricle * LVEF 60%. * Indeterminate diastolic function. * Mild concentric left ventricular hypertrophy. * Normal LV size. Right Ventricle * Normal right ventricular structure and function. Left Atrium * Left atrium is not well visualized. Right Atrium * Normal right atrial size. Mitral Valve * Normal mitral valve structure. * No mitral stenosis. * No mitral regurgitation. Aortic Valve * No aortic regurgitation. * Aortic valve not well visualized. * Doppler not well obtained. Tricuspid Valve * Tricuspid valve not well visualized. * Mild tricuspid regurgitation. Pulmonic Valve * Pulmonic valve is not well visualized. * No pulmonic stenosis. * No pulmonic regurgitation. Pulmonary Artery * Pulmonary artery not well visualized. Aorta * Normally sized aortic root. * Ascending aorta not well visualized. Pericardium * There is no pericardial effusion present. Interatrial Septum * No evidence of PFO by color Doppler. IVC * The IVC is not well evaluated. Consult Discharge Plan - Plan Referrals: Fermín Akhtar MD [Primary Care Provider] - 12/18/17 8:30 am
[2017-12-02] MEDS: Levofloxacin 500 MG/100 ML 500 MG/100 ML BAG IVPB SCH (13:51)
[2017-12-02] MEDS: Apixaban 5 MG TABLET PO SCH (20:17)
[2017-12-03 03:33] LABS: Basophils # 0.1 K/mcL (0.0-0.2); Basophils % 0.6 %; Eosinophils % 0.1 %; Hematocrit 39.6 % (37.5-50.1); Hemoglobin 12.6 g/dL (12.9-16.9); Immature Granulocytes % 3.9 % (0-4); Lymphocytes # 1.1 K/mcL (0.6-4.6); Lymphocytes % 8.8 %; Mean Corpuscular HGB Conc 31.8 g/dL (31.6-35.5); Mean Corpuscular Hemoglobin 28.7 pg (28.0-33.3); Mean Corpuscular Volume 90.2 fL (83.0-100.0); Mean Platelet Volume 9.9 fL (9.4-12.4); Monocytes % 8.4 %; Neutrophils # 9.6 K/mcL (1.6-8.9); Platelet Count 389 K/mcL (140-400); Red Blood Count 4.39 M/mcL (4.19-5.50); Red Cell Distribution Width 15.1 % (11.5-14.5); Segmented Neutrophils % 78.2 %
[2017-12-03] MEDS: Ipratropium/Albuterol Neb 3 ML IH SCH ×4 (04:49→22:13)
[2017-12-03] MEDS ORDERED: Haloperidol Lactate 5 MG/ML VIAL IVP ONE (07:21)
[2017-12-03] MEDS: Metoprolol 100 MG TABLET PO SCH ×2 (08:17→19:43)
[2017-12-03] MEDS: Aspirin Enteric Coated 81 MG Tablet PO SCH (08:17)
[2017-12-03] MEDS: Sennosides/Docusate Sodium TABLET PO SCH ×2 (08:17→19:43)
[2017-12-03] MEDS: amLODIPine 5 MG TABLET PO SCH (08:17)
[2017-12-03] MEDS: Apixaban 5 MG TABLET PO SCH ×2 (08:17→19:43)
[2017-12-03] MEDS: predniSONE 20 MG TABLET PO SCH (08:18)
[2017-12-03] MEDS: Torsemide 20 MG TABLET PO SCH (08:18)
[2017-12-03] MEDS: Insulin LISPRO 300 UNITS/3 ML VIAL SQ SCH ×4 (08:18→19:44)
[2017-12-03 08:21] LABS: BUN/Creatinine Ratio 49 (6-26); Blood Urea Nitrogen 34 mg/dL (8-23); Calcium 9.2 mg/dL (8.6-10.3); Carbon Dioxide 38 mEq/L (23-29); Chloride 93 mEq/L (98-107); Glucose 91 mg/dL (70-105); Osmolality,Calculated 295 (280-300); Potassium 4.3 mEq/L (3.5-5.1); Sodium 139 mEq/L (136-145); eGFR For African Americans > 60 (> 60); eGFR For Non-African Americans > 60 (> 60)
[2017-12-03] MEDS: Diltiazem CD (24hr) 120 MG CAPSULE PO SCH (09:56)
--- NOTE | 2017-12-03 11:00 | Internal Med Progress Note ---
Date of Encounter: 12/03/17 Time of Encounter: 09:40 - Assessment and plan (1) Sundowning Current Visit: Yes Status: Acute Assessment and plan: Patient may be sundowning. We will try to reorient. He has been given 5 mg of IV Haldol which has not helped. He is trying to get out of bed. We will place a sitter for now. (2) Acute and chronic respiratory failure Current Visit: Yes Status: Acute Assessment and plan: Likely secondary to an acute exacerbation of COPD and multilobar pneumonia. We will treat the underlying cause and wean down oxygen as tolerated. Plan is as below Qualifiers: Respiratory failure complication: hypercapnia Qualified Code(s): J96.22 - Acute and chronic respiratory failure with hypercapnia (3) Acute exacerbation of chronic obstructive airways disease Current Visit: Yes Status: Acute Assessment and plan: Continue oral prednisone. Continue with nebulizers. Wean down oxygen as tolerated. Antibiotics have been switched to Levaquin. (4) Atrial fibrillation with controlled ventricular rate Current Visit: Yes Status: Acute Assessment and plan: New onset. started on eliquis for anticoag. Heart rate is in the 130s. We will give the patient 10 mg of IV Cardizem. We will start him on Cardizem 120 mg oral. Check EKG. Continue with beta dino metoprolol 25 mg twice a day. echo with LVEF 60%. mild TR and mild pulm htn. (5) Leukocytosis Current Visit: Yes Status: Acute Assessment and plan: No fever. Given his elevated temperature and elevated white count although patient is on prednisone which can cause elevation in white count, I will check a urinalysis for now. Qualifiers: Leukocytosis type: unspecified Qualified Code(s): D72.829 - Elevated white blood cell count, unspecified (6) HTN (hypertension) Current Visit: Yes Status: Acute Assessment and plan: Blood pressure is elevated still with diastolic mainly in the 90s to low 100 100s. increased metoprolol to 125 mg BID from 100 mg BID on 12/02. We will add Cardizem extended release 120 mg daily. c/w Norvasc 10 mg daily and losartan 100 mg daily. Continue with hydralazine IV PRN. Qualifiers: Hypertension type: essential hypertension Qualified Code(s): I10 - Essential (primary) hypertension (7) Diabetes type 2, controlled Current Visit: No Status: Acute Assessment and plan: Continue with insulin sliding scale. Continue with Accu-Cheks. Glucose well- controlled. Qualifiers: Diabetes mellitus complication status: without complication Diabetes mellitus terminal makeup operator insulin use: without terminal makeup operator use Qualified Code(s): E11.9 - Type 2 diabetes mellitus without complications (8) DVT prophylaxis Current Visit: Yes Status: Acute Assessment and plan: eliquis - Subjective Interval history: Patient was seen and examined. He is restless this morning. He did not sleep. Heart rate is in the 110s to 130s and A. fib. Trying to get out of bed and go home. He seems confused. Has been afebrile. He is on about 4 L nasal cannula oxygen. Patient was admitted a few days ago under the senior producer service transferred out of the ICU yesterday. Admitted with acute hypoxic respiratory failure secondary to multilobar pneumonia. Has been maintained on IV antibiotics broad spectrum as well as IV steroids. Has required BiPAP on and off and then been on nasal cannula. Stay was complicated by new onset A. fib. Patient states that he is feeling better. Palliative is following. No chest pain. - Constitutional Vitals: Temp Pulse Resp BP Pulse Ox 98.2 F 90 20 145/97 95 12/03/17 09:57 12/03/17 09:57 12/03/17 10:25 12/03/17 09:57 12/03/17 10:25 Exam: GEN: NAD. Alert and oriented 1 CVS: Tachycardic, Irregular. S1, S2, No m/r/g RESP: Diminished with coarse breath sounds bilaterally. ABD: Soft, NT, ND, +BS EXT: No edema. 2+ DP. No rashes NEURO: Nonfocal Internal Medicine: Result - Labs CBC & Chem 7: 12/03/17 03:25 12/03/17 07:43 Labs: Short CBC 12/03/17 Range/Units 03:25 WBC 12.3 H (4.3-11.1) K/mcL Hgb 12.6 L (12.9-16.9) g/dL Hct 39.6 (37.5-50.1) % Plt Count 389 (140-400) K/mcL Neutrophils # 9.6 H (1.6-8.9) K/mcL BMP 12/03/17 07:43 Sodium 139 Potassium 4.3 Chloride 93 L Carbon Dioxide 38 H BUN 34 H Creatinine 0.70 Glucose 91 Calcium 9.2 - ABG Interpretation ABG results: ABG ABG pH 7.43 pH Units (7.32-7.45) 11/30/17 03:46 ABG pCO2 50 mmHg (35-45) H 11/30/17 03:46 ABG pO2 123 mmHg (85-104) H 11/30/17 03:46 ABG O2 Saturation 99 % (95-98) H 11/30/17 03:46 Consult Discharge Plan - Plan Referrals: Fermín Akhtar MD [Primary Care Provider] - 12/18/17 8:30 am
[2017-12-03] MEDS: Levofloxacin 500 MG/100 ML 500 MG/100 ML BAG IVPB SCH (13:34)
[2017-12-03] MEDS ORDERED: Dexmedetomidine HCl 400 MCG/100 ML MLS IVC ONE (14:55)
[2017-12-04] MEDS: Ipratropium/Albuterol Neb 3 ML IH SCH ×4 (04:28→22:32)
[2017-12-04 05:00] LABS: Basophils # 0.1 K/mcL (0.0-0.2); Basophils % 0.5 %; Eosinophils % 0.1 %; Hematocrit 37.9 % (37.5-50.1); Hemoglobin 12.2 g/dL (12.9-16.9); Immature Granulocytes % 2.5 % (0-4); Lymphocytes # 0.9 K/mcL (0.6-4.6); Mean Corpuscular HGB Conc 32.2 g/dL (31.6-35.5); Mean Corpuscular Hemoglobin 28.6 pg (28.0-33.3); Mean Platelet Volume 9.7 fL (9.4-12.4); Monocytes # 0.9 K/mcL (0.0-1.3); Monocytes % 8.2 %; Neutrophils # 9.2 K/mcL (1.6-8.9); Platelet Count 354 K/mcL (140-400); Red Blood Count 4.26 M/mcL (4.19-5.50); Red Cell Distribution Width 15.4 % (11.5-14.5); Segmented Neutrophils % 80.7 %
[2017-12-04 05:11] LABS: BUN/Creatinine Ratio 51 (6-26); Blood Urea Nitrogen 38 mg/dL (8-23); Calcium 8.9 mg/dL (8.6-10.3); Carbon Dioxide 43 mEq/L (23-29); Chloride 92 mEq/L (98-107); Glucose 127 mg/dL (70-105); Osmolality,Calculated 297 (280-300); Potassium 3.7 mEq/L (3.5-5.1); Sodium 138 mEq/L (136-145); eGFR For African Americans > 60 (> 60); eGFR For Non-African Americans > 60 (> 60)
[2017-12-04] MEDS: Insulin LISPRO 300 UNITS/3 ML VIAL SQ SCH ×4 (08:51→20:46)
[2017-12-04] MEDS: Sennosides/Docusate Sodium TABLET PO SCH ×2 (08:57→20:36)
[2017-12-04] MEDS: Torsemide 20 MG TABLET PO SCH (08:58)
[2017-12-04] MEDS: Diltiazem CD (24hr) 120 MG CAPSULE PO SCH (08:58)
[2017-12-04] MEDS: Apixaban 5 MG TABLET PO SCH ×2 (08:58→20:37)
[2017-12-04] MEDS: predniSONE 20 MG TABLET PO SCH (08:58)
[2017-12-04] MEDS: Aspirin Enteric Coated 81 MG Tablet PO SCH (08:58)
[2017-12-04] MEDS: amLODIPine 5 MG TABLET PO SCH (08:58)
[2017-12-04] MEDS: Metoprolol 100 MG TABLET PO SCH ×2 (08:58→20:36)
[2017-12-04] MEDS ORDERED: Metoprolol 100 MG TABLET PO SCH (10:46)
--- NOTE | 2017-12-04 10:59 | Discharge Summary ---
Date of Encounter: 12/04/17 Time of Encounter: 10:56 - Discharge Diagnosis (1) Sundowning Priority: Primary Status: Acute (2) Acute and chronic respiratory failure Priority: Primary Status: Acute Qualifiers: Respiratory failure complication: hypercapnia Qualified Code(s): J96.22 - Acute and chronic respiratory failure with hypercapnia (3) Acute exacerbation of chronic obstructive airways disease Priority: Primary Status: Acute (4) Atrial fibrillation with controlled ventricular rate Priority: Primary Status: Acute (5) Leukocytosis Priority: Primary Status: Acute Qualifiers: Leukocytosis type: unspecified Qualified Code(s): D72.829 - Elevated white blood cell count, unspecified (6) HTN (hypertension) Priority: Secondary Status: Acute Qualifiers: Hypertension type: essential hypertension Qualified Code(s): I10 - Essential (primary) hypertension (7) Diabetes type 2, controlled Priority: Secondary Status: Acute Qualifiers: Diabetes mellitus complication status: without complication Diabetes mellitus shelter insulin use: without termite renewal inspector use Qualified Code(s): E11.9 - Type 2 diabetes mellitus without complications - Discharge Medications Home Medications: Albuterol Sulfate [Ventolin Hfa] 18 gm IH Q4-6H PRN 11/06/17 [History] Losartan Potassium [Cozaar] 100 mg PO DAILY 11/06/17 [History] Metoprolol Tartrate [Lopressor] 100 mg PO BID 11/06/17 [History] Simvastatin [Zocor] 20 mg PO HS 11/06/17 [History] Tiotropium [Spiriva] 18 mcg IH 0700 11/06/17 [History] Torsemide 5 mg PO DAILY 11/06/17 [History] amLODIPine [Norvasc] 10 mg PO DAILY 11/06/17 [History] metFORMIN [Glucophage] 850 mg PO BIDWM 11/06/17 [History] Budesonide/Formoterol 160/4.5 [Symbicort 160/4.5] 1 puff IH AD 11/27/17 [History ] Allergies/Adverse Reactions: 3 Allergy/AdvReac Type Severity Reaction Status Date / Time No Known Allergies Allergy Verified 11/27/17 02:05 Procedures/tests Complete & Pending: Procedures Performed prior 72 hours Category Date Time Status EKG [ECG 12 lead ECG] [ECG] Stat Y 12/03/17 09:18 Ordered EV echocardiogram Routine Y 12/01/17 12:06 Completed Date of admission: 11/27/17 05:55 Primary care physician: Fermín Akhtar MD Consults: 11/29/17 10:56 Consult to Palliative Care [CONS] Routine Comment: Consulting Provider: Palliative Care Melani Reason for Consult: Goals of care and code status evaluation Time Notified: 10:57 Call Completed: Yes 11/30/17 14:57 Consult to Speech Therapy [CONS] Routine Comment: Evaluate, develop and implement POC Reason for Consult: Evaluate swallow Time Notified: 11:11 Call Completed: Yes 12/01/17 12:03 Consult to Occupational Therapy [CONS] Routine Comment: Evaluate, develop and implement POC Reason for Consult: therapy/placement needs Consult to Physical Therapy [CONS] Routine Comment: Evaluate, develop and implement POC Reason for Consult: PT eval 12/01/17 12:06 Consult to Cardiology [CONS] Routine Comment: Consulting Provider: Cardiology Melani Reason for Consult: new onset afib. anticoag recs Call Completed: No - Patient Status Disposition: Transfer SNF Condition: Fair Overall status at discharge: patient is progressing back to baseline - Discharge Instructions Follow Up With: Fermín Akhtar MD [Primary Care Provider] - 12/18/17 8:30 am - Diet and Activity Activity: as per physical therapy, increase activity as tolerated, wear oxygen at all times Diet: diabetic diet Hospital course: Mr. Stephen is a 82 year old male - Time Spent with Patient Total time spent providing and/or coordinating discharge services: - Constitutional Vitals: Temp Pulse Resp BP Pulse Ox 97.6 F 85 18 106/69 98 12/04/17 07:49 12/04/17 09:10 12/04/17 07:49 12/04/17 07:49 12/04/17 07:49 Exam: GEN: NAD. Alert and oriented 1 CVS: Tachycardic, Irregular. S1, S2, No m/r/g RESP: Diminished with coarse breath sounds bilaterally. ABD: Soft, NT, ND, +BS EXT: No edema. 2+ DP. No rashes NEURO: Nonfoca
[2017-12-04] MEDS: Levofloxacin 500 MG/100 ML 500 MG/100 ML BAG IVPB SCH (12:13)
--- NOTE | 2017-12-04 12:49 | Internal Med Progress Note ---
Date of Encounter: 12/04/17 Time of Encounter: 12:46 - Assessment and plan (1) Metabolic alkalosis Current Visit: Yes Status: Acute Assessment and plan: Likely contraction alkalosis. We will hold torsemide. Check labs in the morning. The patient is not in any respiratory distress. (2) Current Visit: Yes Status: Acute Assessment and plan: Resolved (3) Acute and chronic respiratory failure Current Visit: Yes Status: Acute Assessment and plan: Likely secondary to an acute exacerbation of COPD and multilobar pneumonia. We will treat the underlying cause and wean down oxygen as tolerated. Plan is as below Qualifiers: Respiratory failure complication: hypercapnia Qualified Code(s): J96.22 - Acute and chronic respiratory failure with hypercapnia (4) Acute exacerbation of chronic obstructive airways disease Current Visit: Yes Status: Acute Assessment and plan: Continue oral prednisone. Wean down to 20 mg daily. Continue with nebulizers. Wean down oxygen as tolerated. Antibiotics have been switched to Levaquin and will stop after 2/5 as he would have had 7 days of abx. (5) Atrial fibrillation with controlled ventricular rate Current Visit: Yes Status: Acute Assessment and plan: New onset. started on eliquis for anticoag. Heart rate is better this morning. I started him on Cardizem 120 mg yesterday and I increased his metoprolol to 125 mg twice a day. I think with his blood pressure being borderline and his heart rate better controlled I will decrease his metoprolol to 100 mg twice a day.. W echo with LVEF 60%. mild TR and mild pulm htn. (6) Leukocytosis Current Visit: Yes Status: Acute Assessment and plan: No fever. on prednisone which can cause elevation in white count, Qualifiers: Leukocytosis type: unspecified Qualified Code(s): D72.829 - Elevated white blood cell count, unspecified (7) HTN (hypertension) Current Visit: Yes Status: Acute Assessment and plan: Blood pressure is better controlled. It is somewhat on the lower side. Decrease metoprolol to 100 twice a day and continue his Cardizem on the 120 daily. c/w Norvasc 10 mg daily and losartan 100 mg daily. Continue with hydralazine IV PRN. Qualifiers: Hypertension type: essential hypertension Qualified Code(s): I10 - Essential (primary) hypertension (8) Diabetes type 2, controlled Current Visit: No Status: Acute Assessment and plan: Continue with insulin sliding scale. Continue with Accu-Cheks. Glucose well- controlled. Qualifiers: Diabetes mellitus complication status: without complication Diabetes mellitus terminal carman insulin use: without half-way use Qualified Code(s): E11.9 - Type 2 diabetes mellitus without complications - Subjective Interval history: Patient was seen and examined. No acute events. He is much more awake this morning compared to yesterday. Awaiting placement. Has been afebrile. He is on about 4 L nasal cannula oxygen. Patient was admitted a few days ago under the it manager service transferred out of the ICU yesterday. Admitted with acute hypoxic respiratory failure secondary to multilobar pneumonia. Has been maintained on IV antibiotics broad spectrum as well as IV steroids. Has required BiPAP on and off and then been on nasal cannula. Stay was complicated by new onset A. fib. Patient states that he is feeling better. Palliative is following. No chest pain. - Constitutional Vitals: Temp Pulse Resp BP Pulse Ox 98.7 F 77 16 128/66 94 12/04/17 12:08 12/04/17 12:08 12/04/17 12:08 12/04/17 12:08 12/04/17 12:08 Exam: GEN: NAD. Alert and oriented 1 CVS: Irregular. S1, S2, No m/r/g RESP: Diminished with coarse breath sounds bilaterally. ABD: Soft, NT, ND, +BS EXT: No edema. 2+ DP. No rashes NEURO: Nonfocal Internal Medicine: Result - Labs CBC & Chem 7: 12/04/17 04:41 12/04/17 04:41 Labs: Short CBC 12/04/17 Range/Units 04:41 WBC 11.4 H (4.3-11.1) K/mcL Hgb 12.2 L (12.9-16.9) g/dL Hct 37.9 (37.5-50.1) % Plt Count 354 (140-400) K/mcL Neutrophils # 9.2 H (1.6-8.9) K/mcL BMP 12/04/17 04:41 Sodium 138 Potassium 3.7 Chloride 92 L Carbon Dioxide 43 H* BUN 38 H Creatinine 0.75 Glucose 127 H Calcium 8.9 - ABG Interpretation ABG results: ABG ABG pH 7.43 pH Units (7.32-7.45) 11/30/17 03:46 ABG pCO2 50 mmHg (35-45) H 11/30/17 03:46 ABG pO2 123 mmHg (85-104) H 11/30/17 03:46 ABG O2 Saturation 99 % (95-98) H 11/30/17 03:46 Consult Discharge Plan - Plan Referrals: Fermín Akhtar MD [Primary Care Provider] - 12/18/17 8:30 am
[2017-12-04] MEDS ORDERED: Saliva Stimulant 100ml BOTTLE PO PRN (14:34)
--- NOTE | 2017-12-04 17:22 | Electrocardiograph Report ---
[place] [id number] Test Date: 2017-12-03 Pat Name: Keri Stephen Department: 110 Room: 2N11 Gender: M Change Of Address Clerk: : 1935 Requested By: Fran Mosher Order Number: [id number] Reading MD: Patsy Raymundo Measurements Intervals [place] Rate: 84 P: MT: 0 QRS: 116 QRSD: 101 T: 42 QT: 357 QTc: 398 Interpretive Statements ATRIAL FIBRILLATION Electronically Signed On 12-04-2017 17:21:31 EST by Ptasy Raymundo
[2017-12-05] MEDS: Ipratropium/Albuterol Neb 3 ML IH SCH ×4 (05:11→22:24)
[2017-12-05 08:14] LABS: Basophils % 0.3 %; Eosinophils % 0.1 %; Hematocrit 36.7 % (37.5-50.1); Hemoglobin 12.3 g/dL (12.9-16.9); Immature Granulocytes % 2.4 % (0-4); Mean Corpuscular HGB Conc 33.5 g/dL (31.6-35.5); Mean Corpuscular Hemoglobin 29.1 pg (28.0-33.3); Mean Platelet Volume 10.9 fL (9.4-12.4); Monocytes # 1.1 K/mcL (0.0-1.3); Neutrophils # 10.7 K/mcL (1.6-8.9); Platelet Count 291 K/mcL (140-400); Red Blood Count 4.22 M/mcL (4.19-5.50); Red Cell Distribution Width 15.3 % (11.5-14.5); Segmented Neutrophils % 75.2 %
[2017-12-05] MEDS: Metoprolol 100 MG TABLET PO SCH ×2 (08:38→21:13)
[2017-12-05] MEDS: Diltiazem CD (24hr) 120 MG CAPSULE PO SCH (08:38)
[2017-12-05] MEDS: Insulin LISPRO 300 UNITS/3 ML VIAL SQ SCH ×4 (08:39→21:17)
[2017-12-05] MEDS: Sennosides/Docusate Sodium TABLET PO SCH ×2 (08:39→21:13)
[2017-12-05] MEDS: Aspirin Enteric Coated 81 MG Tablet PO SCH (08:39)
[2017-12-05] MEDS: Apixaban 5 MG TABLET PO SCH ×2 (08:39→21:13)
[2017-12-05] MEDS: predniSONE 20 MG TABLET PO SCH (08:39)
[2017-12-05] MEDS: amLODIPine 5 MG TABLET PO SCH (08:39)
--- NOTE | 2017-12-05 08:44 | Event Note ---
Date of Encounter: 12/05/17 Time of Encounter: 08:30 Patient awaiting insurance approval for rehab. Participating with PT/OT. POA has been completed. Palliative not currently managing any symptoms and will sign off. Please reconsult if needed.
[2017-12-05 09:12] LABS: BUN/Creatinine Ratio 61 (6-26); Blood Urea Nitrogen 43 mg/dL (8-23); Calcium 8.8 mg/dL (8.6-10.3); Carbon Dioxide 34 mEq/L (23-29); Chloride 97 mEq/L (98-107); Glucose 120 mg/dL (70-105); Osmolality,Calculated 300 (280-300); Potassium 4.8 mEq/L (3.5-5.1); Sodium 139 mEq/L (136-145); eGFR For African Americans > 60 (> 60); eGFR For Non-African Americans > 60 (> 60)
--- NOTE | 2017-12-05 10:35 | Discharge Summary ---
Date of Encounter: 12/05/17 Time of Encounter: 10:33 - Discharge Diagnosis (1) Metabolic alkalosis Priority: Primary Status: Acute (2) Sundowning Priority: Primary Status: Acute (3) Acute and chronic respiratory failure Priority: Primary Status: Acute Qualifiers: Respiratory failure complication: hypercapnia Qualified Code(s): J96.22 - Acute and chronic respiratory failure with hypercapnia (4) Acute exacerbation of chronic obstructive airways disease Priority: Primary Status: Acute (5) Atrial fibrillation with controlled ventricular rate Priority: Secondary Status: Acute (6) Leukocytosis Priority: Primary Status: Acute Qualifiers: Leukocytosis type: unspecified Qualified Code(s): D72.829 - Elevated white blood cell count, unspecified (7) HTN (hypertension) Priority: Secondary Status: Acute Qualifiers: Hypertension type: essential hypertension Qualified Code(s): I10 - Essential (primary) hypertension (8) Diabetes type 2, controlled Priority: Secondary Status: Acute Qualifiers: Diabetes mellitus complication status: without complication Diabetes mellitus fci insulin use: without fci use Qualified Code(s): E11.9 - Type 2 diabetes mellitus without complications (9) Pneumonia Priority: Primary Status: Acute Qualifiers: Pneumonia type: due to unspecified organism Laterality: bilateral Lung location: unspecified part of lung Qualified Code(s): J18.9 - Pneumonia, unspecified organism - Discharge Medications Prescriptions: Apixaban [Eliquis] 5 mg PO BID #60 tablet Calcium Carbonate [Tums] 1,000 mg PO QID #60 tab.chew Diltiazem CD (24hr) [Cardizem CD] 120 mg PO DAILY #30 cap.er.24h Metoprolol [Lopressor] 100 mg PO BID #60 tablet predniSONE [PredniSONE] 10 mg PO DAILY #3 tablet Home Medications: Albuterol Sulfate [Ventolin Hfa] 18 gm IH Q4-6H PRN 11/06/17 [History] Losartan Potassium [Cozaar] 100 mg PO DAILY 11/06/17 [History] Metoprolol Tartrate [Lopressor] 100 mg PO BID 11/06/17 [History] Simvastatin [Zocor] 20 mg PO HS 11/06/17 [History] Tiotropium [Spiriva] 18 mcg IH 0700 11/06/17 [History] Torsemide 5 mg PO DAILY 11/06/17 [History] amLODIPine [Norvasc] 10 mg PO DAILY 11/06/17 [History] metFORMIN [Glucophage] 850 mg PO BIDWM 11/06/17 [History] Budesonide/Formoterol 160/4.5 [Symbicort 160/4.5] 1 puff IH AD 11/27/17 [History ] Apixaban [Eliquis] 5 mg PO BID #60 tablet 12/05/17 [Rx] Calcium Carbonate [Tums] 1,000 mg PO QID #60 tab.chew 12/05/17 [Rx] Diltiazem CD (24hr) [Cardizem CD] 120 mg PO DAILY #30 cap.er.24h 12/05/17 [Rx] Metoprolol [Lopressor] 100 mg PO BID #60 tablet 12/05/17 [Rx] predniSONE [PredniSONE] 10 mg PO DAILY #3 tablet 12/05/17 [Rx] Allergies/Adverse Reactions: 3 Allergy/AdvReac Type Severity Reaction Status Date / Time No Known Allergies Allergy Verified 11/27/17 02:05 Procedures/tests Complete & Pending: Procedures Performed prior 72 hours Category Date Time Status EKG [ECG 12 lead ECG] [ECG] Stat Y 12/03/17 09:18 Completed Date of admission: 11/27/17 05:55 Primary care physician: Fermín Akhtar MD Consults: 11/29/17 10:56 Consult to Palliative Care [CONS] Routine Comment: Consulting Provider: Palliative Care Melani Reason for Consult: Goals of care and code status evaluation Time Notified: 10:57 Call Completed: Yes 11/30/17 14:57 Consult to Speech Therapy [CONS] Routine Comment: Evaluate, develop and implement POC Reason for Consult: Evaluate swallow Time Notified: 11:11 Call Completed: Yes 12/01/17 12:03 Consult to Occupational Therapy [CONS] Routine Comment: Evaluate, develop and implement POC Reason for Consult: therapy/placement needs Consult to Physical Therapy [CONS] Routine Comment: Evaluate, develop and implement POC Reason for Consult: PT eval 12/01/17 12:06 Consult to Cardiology [CONS] Routine Comment: Consulting Provider: Cardiology Marrero Reason for Consult: new onset afib. anticoag recs Call Completed: No - Patient Status Disposition: Transfer SNF Condition: Fair Overall status at discharge: patient is progressing back to baseline - Discharge Instructions Follow Up With: Fermín Akhtar MD [Primary Care Provider] - 12/18/17 8:30 am - Diet and Activity Activity: as per physical therapy, wear oxygen at all times Diet: diabetic diet Hospital course: Mr. Stephen is a 82 year old male who presented as a transfer from a local ED with respiratory failure 2/2 COPD flare and PNA. His history was significant for PNA and strep pneumonia bacteremia on 11/06/17 and was subsequently sent home on levaquin a few days later on 11/09/17. Since returning home, he developed progressive SOB he again presented to the ED with significant respiratory distress and had to be stabilized on Bipap prior to transfer to [facility]. Was noted to have leukopenia. Initial chest x-ray showed multilobar pneumonia. Initial ABGs showed acidosis with CO2 retention. He was maintained on BiPAP and admitted to the ICU. He never needed intubation. He was transferred out of the ICU after more stabilization. Was maintained on broad-spectrum antibiotics. Once he was transferred out of the ICU ID escalated his antibiotics as cultures remained negative. He finished 7 days of IV Levaquin and the patient was continued on his regular oxygen in about 3-4 L of nasal cannula oxygen. He was also on IV steroids and that has been tapered down to oral steroids and he was discharged on prednisone finished taper. His stay was complicated with a new onset atrial fibrillation. Cardiology was consulted. He was startedon eliquis for anticoag. I started him on Cardizem 120 mg daily. His metoprolol was also up titrated and he was discharged on 100 mg twice a day. The patient was discharged on 12/05/2017. He will be discharged to nursing facility. - Time Spent with Patient Total time spent providing and/or coordinating discharge services: Greater than 30 minutes - Constitutional Vitals: Temp Pulse Resp BP Pulse Ox 97.9 F 79 18 142/76 93 12/05/17 07:40 12/05/17 07:40 12/05/17 07:40 12/05/17 07:40 12/05/17 07:40 Exam: GEN: NAD. Alert and oriented 2 CVS: Irregular. S1, S2, No m/r/g RESP: Diminished with coarse breath sounds bilaterally. ABD: Soft, NT, ND, +BS EXT: No edema. 2+ DP. No rashes NEURO: Nonfocal
[2017-12-05 10:39] LABS: Bilirubin,Urine Negative (Negative); Blood,Urine Small (Negative); Clarity,Urine Clear (Clear); Color,Urine Yellow (Yellow); Glucose,Urine (UA) Normal (Normal); Ketones,Urine Negative (Negative); Leukocyte Esterase,Urine Negative (Negative); Nitrite,Urine Negative (Negative); Protein,Urine Trace mg/dL (Neg-Trace); Urobilinogen,Urine Normal (Normal)
--- NOTE | 2017-12-05 10:39 | Physician Discharge Referral ---
ExtendedCare Referral Info Institutional Level of Care: Skilled - Diagnosis (1) Metabolic alkalosis Priority: Primary Status: Acute (2) Sundowning Priority: Primary Status: Acute (3) Acute and chronic respiratory failure Priority: Primary Status: Acute (4) Acute exacerbation of chronic obstructive airways disease Priority: Primary Status: Acute (5) Atrial fibrillation with controlled ventricular rate Priority: Secondary Status: Acute (6) Leukocytosis Priority: Primary Status: Acute (7) HTN (hypertension) Priority: Secondary Status: Acute (8) Diabetes type 2, controlled Priority: Secondary Status: Acute (9) Pneumonia Priority: Primary Status: Acute - Transfer Medications Prescriptions: Apixaban [Eliquis] 5 mg PO BID #60 tablet Calcium Carbonate [Tums] 1,000 mg PO QID #60 tab.chew Diltiazem CD (24hr) [Cardizem CD] 120 mg PO DAILY #30 cap.er.24h Metoprolol [Lopressor] 100 mg PO BID #60 tablet Home Medications: Albuterol Sulfate [Ventolin Hfa] 18 gm IH Q4-6H PRN 11/06/17 [History] Losartan Potassium [Cozaar] 100 mg PO DAILY 11/06/17 [History] Metoprolol Tartrate [Lopressor] 100 mg PO BID 11/06/17 [History] Simvastatin [Zocor] 20 mg PO HS 11/06/17 [History] Tiotropium [Spiriva] 18 mcg IH 0700 11/06/17 [History] Torsemide 5 mg PO DAILY 11/06/17 [History] amLODIPine [Norvasc] 10 mg PO DAILY 11/06/17 [History] metFORMIN [Glucophage] 850 mg PO BIDWM 11/06/17 [History] Budesonide/Formoterol 160/4.5 [Symbicort 160/4.5] 1 puff IH AD 11/27/17 [History ] Apixaban [Eliquis] 5 mg PO BID #60 tablet 12/05/17 [Rx] Calcium Carbonate [Tums] 1,000 mg PO QID #60 tab.chew 12/05/17 [Rx] Diltiazem CD (24hr) [Cardizem CD] 120 mg PO DAILY #30 cap.er.24h 12/05/17 [Rx] Metoprolol [Lopressor] 100 mg PO BID #60 tablet 12/05/17 [Rx] Allergies/Adverse Reactions: 3 Allergy/AdvReac Type Severity Reaction Status Date / Time No Known Allergies Allergy Verified 11/27/17 02:05 - Respiratory Orders Oxygen / L per min (3-4 L) Smoking Cessation: Smoking cessation has been advised. For more information, call the [place] Tobacco Quit Line at 0-509-PDOA-NOW. - Rehabiliation Orders Rehab Orders: Evaluation for Physical Therapy, Evaluation for Occupational Therapy - Diet Orders No Added Salt (DENAE) (diabetic) CERTIFICATION: I certify that the transfer of the above named patient to an Extended Care Facility is necessary for the continuing treatment of the diagnosis listed. The above information is true and accurate reflection of patient's current condition. Confidential - Redisclosure prohibited without a patient's written consent.
[2017-12-05 10:40] LABS: Bacteria,Urine None Seen per hpf (None-Few); Hyaline Casts,Urine None Seen per lpf (None-Few); Squamous Epithelial Cell,Urine Moderate per lpf (None-Few); WBC,Urine 0-3 per hpf (0-3)
[2017-12-06] MEDS: Ipratropium/Albuterol Neb 3 ML IH SCH ×2 (04:42→10:34)
[2017-12-06 08:04] VITALS: BP 141/81
[2017-12-06] MEDS: Insulin LISPRO 300 UNITS/3 ML VIAL SQ SCH (08:42)
[2017-12-06] MEDS: predniSONE 20 MG TABLET PO SCH (09:11)
[2017-12-06] MEDS: Apixaban 5 MG TABLET PO SCH (09:11)
[2017-12-06] MEDS: Metoprolol 100 MG TABLET PO SCH (09:11)
[2017-12-06] MEDS: Sennosides/Docusate Sodium TABLET PO SCH (09:11)
[2017-12-06] MEDS: Diltiazem CD (24hr) 120 MG CAPSULE PO SCH (09:12)
[2017-12-06] MEDS: Aspirin Enteric Coated 81 MG Tablet PO SCH (09:12)
[2017-12-06] MEDS: amLODIPine 5 MG TABLET PO SCH (09:12)
== END 2017-12-06 11:21 | DRG 208 ==
LOC: ICNU → SUATTDRO 05:55 → 2NNU 11-30 16:54
PROVIDERS: ADMIT Internal Medicine; ATTEND Internal Medicine

== ENCOUNTER 2018-01-20 14:37 | Inpatient (IN) ==
[2018-01-20] MEDS ORDERED: Acetaminophen 325 MG TABLET PO PRN (18:45)
[2018-01-20] MEDS ORDERED: Naloxone 0.4 MG/ML INJ IVP PRN (18:45)
--- NOTE | 2018-01-20 21:02 | Internal Med History&Physical ---
<Seun Mustafa J - Last Filed: 01/20/18 21:52> Date of Encounter: 01/20/18 Time of Encounter: 20:56 Assessment and Plan (1) COPD (chronic obstructive pulmonary disease) Current visit: Yes Status: Acute Oxygen supplement to keep oxygen saturation above 92%, Breathing treatment, steroid Qualifiers: COPD type: unspecified COPD Qualified Code(s): J44.9 - Chronic obstructive pulmonary disease, unspecified (2) Dyspnea Current visit: No Status: Acute Oxygen supplement and breathing treatment Qualifiers: Dyspnea type: shortness of breath Qualified Code(s): R06.02 - Shortness of breath; R06.00 - Dyspnea, unspecified; R06.01 - Orthopnea (3) Diabetes type 2, controlled Current visit: Yes Status: Chronic POCT glucose, hypoglycemic protocol, sliding scale insulin with meal coverage Qualifiers: Diabetes mellitus hub borer insulin use: without hub borer use Diabetes mellitus complication status: without complication Qualified Code(s): E11.9 - Type 2 diabetes mellitus without complications (4) HTN (hypertension) Current visit: Yes Status: Chronic Continue home medication, Cozaar, Lopressor and Norvasc Qualifiers: Hypertension type: essential hypertension Qualified Code(s): I10 - Essential (primary) hypertension Internal Medicine - H&P: HPI Admitted From: Hospital to Hospital Transfer Plans for Post Hospital Care: Home History of present illness: Mr. Stephen is a 82 year old male with medical history that include Diabetes, hypertension, hyperlipidemia and COPD. He preents as a transfer for increased shortness of breath and general body weakness. He was treated here for pneumonia about 5 weeks ago. He is on 3L of oxygen at home. he stated having difficulty sleeping at night. He also endorsed cough with nasal congestion. he did not receive the influenza vacination last year. He denies headache and abdominal pain. Past Med Surg Social Fam HX - Past Medical History Medical history: COPD, diabetes, hyperlipidemia, hypertension Psychiatric history: no psych history - Social History Smoking Status: Former smoker Smokeless Tobacco Status: No Alcohol use: none Drug use: none - Family History Grandmother Living Status: Hx Family Neurologic Disorders: Yes (stroke) Mother Living Status: Hx Family Cardiac Disorders: Yes (heart failure) Internal Medicine - H&P: Meds Albuterol Sulfate [Ventolin Hfa] 1 - 2 puff IH Q4-6H PRN 11/06/17 [History] Losartan Potassium [Cozaar] 100 mg PO DAILY 11/06/17 [History] Metoprolol Tartrate [Lopressor] 100 mg PO BID 11/06/17 [History] Tiotropium [Spiriva] 18 mcg IH DAILY 11/06/17 [History] Torsemide 5 mg PO DAILY 11/06/17 [History] amLODIPine [Norvasc] 10 mg PO DAILY 11/06/17 [History] metFORMIN [Glucophage] 850 mg PO BIDWM 11/06/17 [History] Budesonide/Formoterol 160/4.5 [Symbicort 160/4.5] 2 puff IH BID 11/27/17 [ History] Apixaban [Eliquis] 5 mg PO BID #60 tablet 12/05/17 [Rx] Diltiazem CD (24hr) [Cardizem CD] 120 mg PO DAILY #30 cap.er.24h 12/05/17 [Rx] predniSONE [PredniSONE] 5 mg PO DAILY #5 tablet 12/13/17 [Rx] Pravastatin Sodium [Pravachol] 20 mg PO DAILY 01/21/18 [History] 3 Allergy/AdvReac Type Severity Reaction Status Date / Time No Known Allergies Allergy Verified 01/20/18 10:09 All Systems PM: A 10-system review of systems was performed and is negative for pertinent findings except as documented above in the HPI. - Constitutional Constitutional: as per HPI - EENT Eyes: as per HPI Ears: as per HPI - Cardiovascular Cardiovascular ROS IM: as per HPI - Respiratory Respiratory: cough, dyspnea - Gastrointestinal Gastrointestinal: as per HPI - Genitourinary Genitourinary ROS male: as per HPI - Musculoskeletal Musculoskeletal ROS IM: as per HPI - Integumentary Integumentary IM: as per HPI - Neurological Neurological ROS: as per HPI - Psychiatric Psychiatric: as per HPI - Hematologic/Lymphatic Hematologic/Lymphatic: as per HPI - Allergic/Immunologic Allergic/Immunologic: as per HPI - Constitutional Vitals: Temp Pulse Resp BP Pulse Ox 97.8 F 67 18 130/71 95 01/20/18 19:49 01/20/18 19:49 01/20/18 19:49 01/20/18 19:49 01/20/18 19:49 General appearance: Present: cooperative, A&O X 3, answers questions appropriately - Eye Eye exam: Present: PERRL - ENT ENT exam: Present: mucous membranes dry, TM's normal bilaterally - Neck Neck exam general surgery: Present: supple, trachea midline - Respiratory Respiratory exam: Present: CTAB - Extremities Exam Extremities exam: Present: warm, radial pulses palpable and symmetrical - Neurological Exam Neurological exam: Present: CN II-XII intact, oriented X3, strengths equal and symetr throughout - Psychiatric Psychiatric exam: Present: normal mood, suicidal ideation - Skin Skin exam: Present: dry, intact, warm <Nelson Perezia Annika - Last Filed: 01/22/18 20:18> Date of Encounter: 01/20/18 Internal Medicine - H&P: HPI History of present illness: Mr. Stephen is a 82 year old male All Systems PM: A 10-system review of systems was performed and is negative for pertinent findings except as documented above in the HPI. - Constitutional Vitals: Temp Pulse Resp BP Pulse Ox 98.2 F 65 18 125/57 97 01/22/18 14:16 01/22/18 14:16 01/22/18 20:03 01/22/18 14:16 01/22/18 20:03 Internal Med - H&P Results - Labs CBC & Chem 7: 01/22/18 19:24 01/22/18 04:04 Labs: Short CBC 01/22/18 01/22/18 Range/Units 04:04 19:24 WBC 10.0 D (4.3-11.1) K/mcL Hgb 7.5 L 7.8 L (12.9-16.9) g/dL Hct 24.5 L 24.8 L (37.5-50.1) % Plt Count 428 H (140-400) K/mcL Neutrophils # 9.1 H (1.6-8.9) K/mcL BMP 01/22/18 04:04 Sodium 137 Potassium 3.7 Chloride 103 Carbon Dioxide 26 BUN 32 H Creatinine 1.08 Glucose 215 H Calcium 8.4 L - Attending Attestation I personally and independently interviewed and examined the patient with the nurse practitioner and reviewed the patient medical records with [employer]. I am in agreement with it service manager assessment and proposed treatment plan. I have discussed my finding and recommendation with the patient and answer all questions. The patient's medical record was admitted to accurately reflect his encounter.
[2018-01-20] MEDS ORDERED: D5% in Water 1,000 ML IVC PRN (21:08)
[2018-01-20] MEDS ORDERED: Dextrose Gel 15 GM/37.5 ML TUBE PO PRN ×2 (21:08)
[2018-01-20] MEDS ORDERED: *HR* Dextrose 50 % in Water (Syg) 50 ML SYRINGE IVP PRN (21:08)
[2018-01-20] MEDS: Insulin LISPRO 300 UNITS/3 ML VIAL SQ SCH (21:32)
[2018-01-20] MEDS: Apixaban 5 MG TABLET PO SCH (21:32)
[2018-01-20] MEDS: Metoprolol 100 MG TABLET PO SCH (21:32)
[2018-01-20] MEDS: Ipratropium/Albuterol Neb 3 ML IH SCH (23:50)
[2018-01-20] MEDS: Budesonide/Formoterol 160/4.5 MDI IH SCH (23:50)
[2018-01-21] MEDS: MethylPREDNISolone 40 MG/ML VIAL IVP SCH ×4 (00:07→16:46)
[2018-01-21 03:38] LABS: Hematocrit 26.9 % (37.5-50.1); Hemoglobin 8.4 g/dL (12.9-16.9); Immature Granulocytes % 0.8 % (0-4); Lymphocytes # 0.6 K/mcL (0.6-4.6); Lymphocytes % 14.8 %; Mean Corpuscular HGB Conc 31.2 g/dL (31.6-35.5); Mean Corpuscular Hemoglobin 27.7 pg (28.0-33.3); Mean Corpuscular Volume 88.8 fL (83.0-100.0); Mean Platelet Volume 9.3 fL (9.4-12.4); Monocytes # 0.1 K/mcL (0.0-1.3); Monocytes % 2.5 %; Neutrophils # 3.3 K/mcL (1.6-8.9); Platelet Count 482 K/mcL (140-400); Red Blood Count 3.03 M/mcL (4.19-5.50); Red Cell Distribution Width 15.2 % (11.5-14.5); Segmented Neutrophils % 81.9 %
[2018-01-21] MEDS: Ipratropium/Albuterol Neb 3 ML IH SCH ×5 (04:35→19:53)
[2018-01-21 04:56] LABS: BUN/Creatinine Ratio 22 (6-26); Blood Urea Nitrogen 24 mg/dL (8-23); Calcium 8.7 mg/dL (8.6-10.3); Carbon Dioxide 27 mEq/L (23-29); Chloride 102 mEq/L (98-107); Glucose 157 mg/dL (70-105); Osmolality,Calculated 295 (280-300); Potassium 3.7 mEq/L (3.5-5.1); Sodium 139 mEq/L (136-145); eGFR For African Americans > 60 (> 60); eGFR For Non-African Americans > 60 (> 60)
[2018-01-21] MEDS ORDERED: Insulin LISPRO 300 UNITS/3 ML VIAL SQ SCH (07:30)
[2018-01-21] MEDS: Budesonide/Formoterol 160/4.5 MDI IH SCH ×2 (07:32→19:53)
[2018-01-21] MEDS: Tiotropium 18 MCG inhalation IH SCH (07:36)
[2018-01-21] MEDS ORDERED: *HR* Metformin 850 MG TABLET PO SCH (08:00)
[2018-01-21] MEDS: Insulin LISPRO 300 UNITS/3 ML VIAL SQ SCH ×4 (08:29→20:59)
[2018-01-21] MEDS: Metoprolol 100 MG TABLET PO SCH ×2 (08:29→20:54)
[2018-01-21] MEDS: Diltiazem CD (24hr) 120 MG CAPSULE PO SCH (08:29)
[2018-01-21] MEDS: Torsemide 20 MG TABLET PO SCH (08:30)
[2018-01-21] MEDS: Apixaban 5 MG TABLET PO SCH ×2 (08:30→20:54)
[2018-01-21] MEDS: amLODIPine 5 MG TABLET PO SCH (08:30)
[2018-01-21] MEDS ORDERED: predniSONE 5 MG TABLET PO SCH (09:00)
--- NOTE | 2018-01-21 10:34 | Internal Med Progress Note ---
Date of Encounter: 01/21/18 Time of Encounter: 10:32 - Assessment and plan (1) Acute exacerbation of chronic obstructive airways disease Current Visit: No Status: Acute Assessment and plan: Acute on chronic hypoxic respiratory failure secondary to acute COPD exacerbation due to multifocal pneumonia/possible healthcare associated pneumonia present upon admission The patient is currently on Levaquin alone and is improving, consider escalating antibiotic therapy if worse Levaquin day #2 Continue Solu-Medrol, duo nebs, oxygen therapy uses 3 L continuously at home (2) Pneumonia Current Visit: No Status: Acute Qualifiers: Pneumonia type: due to unspecified organism Laterality: right Lung location: lower lobe of lung Qualified Code(s): J18.1 - Lobar pneumonia, unspecified organism (3) Atrial fibrillation Current Visit: Yes Status: Acute Assessment and plan: Stable on metoprolol Continue Eliquis Qualifiers: Atrial fibrillation type: paroxysmal Qualified Code(s): I48.0 - Paroxysmal atrial fibrillation (4) Diabetes type 2, controlled Current Visit: Yes Status: Chronic Assessment and plan: On metformin and insulin sliding scale Qualifiers: Diabetes mellitus half-way insulin use: without half-way use Diabetes mellitus complication status: without complication Qualified Code(s): E11.9 - Type 2 diabetes mellitus without complications (5) HTN (hypertension) Current Visit: Yes Status: Chronic Qualifiers: Hypertension type: essential hypertension Qualified Code(s): I10 - Essential (primary) hypertension (6) Acute and chronic respiratory failure Current Visit: No Status: Acute Qualifiers: Respiratory failure complication: hypercapnia Qualified Code(s): J96.22 - Acute and chronic respiratory failure with hypercapnia (7) Leukopenia Current Visit: Yes Status: Acute Assessment and plan: Nonspecific Qualifiers: Leukopenia type: unspecified Qualified Code(s): D72.819 - Decreased white blood cell count, unspecified - Subjective Interval history: Feels less short of breath and yesterday, denies any chest pain, no fevers overnight, no abdominal pain, no dysuria. No diarrhea - Constitutional Vitals: Temp Pulse Resp BP Pulse Ox 97.6 F 66 15 146/66 96 01/21/18 09:54 01/21/18 09:54 01/21/18 09:54 01/21/18 09:54 01/21/18 09:54 General appearance: Present: cooperative, A&O X 3, answers questions appropriately - Head Head exam: Present: atraumatic, normocephalic - Eye Eye exam: Present: PERRL, conjuntiva pink, sclera anicteric Pupils: Present: PERRL - Neck Neck exam general surgery: Present: supple, trachea midline. Absent: lymphadenopathy - Respiratory Respiratory exam: Present: decreased breath sounds (Diminished breath sounds mainly on the right lung field, minimal diffuse wheezing), CTAB, wheezes. Absent: accessory muscle use, rales, rhonchi - Cardiovascular Cardiovascular exam: Present: RRR, +S1, +S2. Absent: diastolic murmur, gallop, rubs, systolic murmur - GI/Abdominal GI/Abdominal exam: Present: normal bowel sounds, soft, no peritoneal signs. Absent: distended, tenderness - Extremities Exam Extremities exam: Present: warm, radial pulses palpable and symmetrical. Absent : calf tenderness, cyanotic, pedal edema - Neurological Exam Neurological exam: Present: CN II-XII intact, oriented X3, no focal deficits. Absent: pronater drift, facial droop, speech deficit - Skin Skin exam: Present: dry, intact Internal Medicine: Result - Labs CBC & Chem 7: 01/21/18 02:39 01/21/18 02:39 Labs: Short CBC 01/21/18 Range/Units 02:39 WBC 4.0 L (4.3-11.1) K/mcL Hgb 8.4 L (12.9-16.9) g/dL Hct 26.9 L (37.5-50.1) % Plt Count 482 H (140-400) K/mcL Neutrophils # 3.3 (1.6-8.9) K/mcL BMP 01/21/18 02:39 Sodium 139 Potassium 3.7 Chloride 102 Carbon Dioxide 27 BUN 24 H Creatinine 1.10 Glucose 157 H Calcium 8.7 Consult Discharge Plan - Plan Referrals: Fermín Akhtar MD [Primary Care Provider] -
[2018-01-21] MEDS: Levofloxacin 750 MG/150 ML 750 MG/150 ML BAG IVPB SCH (11:53)
[2018-01-21] MEDS ORDERED: Benzonatate 100 MG CAPSULE PO PRN (18:00)
[2018-01-22] MEDS: MethylPREDNISolone 40 MG/ML VIAL IVP SCH ×3 (00:06→13:38)
[2018-01-22] MEDS: Ipratropium/Albuterol Neb 3 ML IH SCH ×6 (00:23→19:59)
[2018-01-22 04:36] LABS: Eosinophils % 0.1 %; Hematocrit 24.5 % (37.5-50.1); Hemoglobin 7.5 g/dL (12.9-16.9); Immature Granulocytes % 0.9 % (0-4); Lymphocytes # 0.5 K/mcL (0.6-4.6); Lymphocytes % 5.3 %; Mean Corpuscular HGB Conc 30.6 g/dL (31.6-35.5); Mean Corpuscular Hemoglobin 27.6 pg (28.0-33.3); Mean Corpuscular Volume 90.1 fL (83.0-100.0); Mean Platelet Volume 9.6 fL (9.4-12.4); Monocytes # 0.3 K/mcL (0.0-1.3); Monocytes % 2.9 %; Neutrophils # 9.1 K/mcL (1.6-8.9); Platelet Count 428 K/mcL (140-400); Red Blood Count 2.72 M/mcL (4.19-5.50); Red Cell Distribution Width 15.6 % (11.5-14.5); Segmented Neutrophils % 90.8 %
[2018-01-22 04:49] LABS: BUN/Creatinine Ratio 30 (6-26); Blood Urea Nitrogen 32 mg/dL (8-23); Calcium 8.4 mg/dL (8.6-10.3); Carbon Dioxide 26 mEq/L (23-29); Chloride 103 mEq/L (98-107); Glucose 215 mg/dL (70-105); Osmolality,Calculated 297 (280-300); Potassium 3.7 mEq/L (3.5-5.1); Sodium 137 mEq/L (136-145); eGFR For African Americans > 60 (> 60); eGFR For Non-African Americans > 60 (> 60)
[2018-01-22] MEDS: Budesonide/Formoterol 160/4.5 MDI IH SCH (07:32)
[2018-01-22] MEDS: Tiotropium 18 MCG inhalation IH SCH (07:35)
[2018-01-22] MEDS: amLODIPine 5 MG TABLET PO SCH (08:26)
[2018-01-22] MEDS: Insulin LISPRO 300 UNITS/3 ML VIAL SQ SCH ×4 (08:27→21:33)
[2018-01-22] MEDS: Diltiazem CD (24hr) 120 MG CAPSULE PO SCH (08:27)
[2018-01-22] MEDS: Metoprolol 100 MG TABLET PO SCH ×2 (08:27→21:53)
[2018-01-22] MEDS: Torsemide 20 MG TABLET PO SCH (08:28)
--- NOTE | 2018-01-22 08:47 | Internal Med Progress Note ---
Date of Encounter: 01/22/18 Time of Encounter: 08:47 - Assessment and plan (1) Acute exacerbation of chronic obstructive airways disease Current Visit: No Status: Acute Assessment and plan: Acute on chronic hypoxic respiratory failure secondary to acute COPD exacerbation due to multifocal pneumonia/possible healthcare associated pneumonia present upon admission Levaquin day #3, added cefepime Continue Solu-Medrol, duo nebs, oxygen therapy uses 3 L continuously at home (2) Acute blood loss anemia Current Visit: Yes Status: Acute Assessment and plan: Acute blood loss anemia secondary to GI losses ( GI bleed?) Start Protonix IV, monitor CBC and consider transfusion GI consult, nothing by mouth after midnight, hold torsemide and start IV fluids after midnight (3) Pneumonia Current Visit: No Status: Acute Qualifiers: Pneumonia type: due to unspecified organism Laterality: right Lung location: lower lobe of lung Qualified Code(s): J18.1 - Lobar pneumonia, unspecified organism (4) Atrial fibrillation Current Visit: Yes Status: Acute Assessment and plan: Stable on metoprolol Stop Eliquis due to anemia Qualifiers: Atrial fibrillation type: paroxysmal Qualified Code(s): I48.0 - Paroxysmal atrial fibrillation (5) Diabetes type 2, controlled Current Visit: Yes Status: Chronic Assessment and plan: On metformin and insulin sliding scale Qualifiers: Diabetes mellitus exterminator termite insulin use: without [place] use Diabetes mellitus complication status: without complication Qualified Code(s): E11.9 - Type 2 diabetes mellitus without complications (6) HTN (hypertension) Current Visit: Yes Status: Chronic Qualifiers: Hypertension type: essential hypertension Qualified Code(s): I10 - Essential (primary) hypertension (7) Acute and chronic respiratory failure Current Visit: No Status: Acute Qualifiers: Respiratory failure complication: hypercapnia Qualified Code(s): J96.22 - Acute and chronic respiratory failure with hypercapnia (8) Leukopenia Current Visit: Yes Status: Acute Assessment and plan: Nonspecific Qualifiers: Leukopenia type: unspecified Qualified Code(s): D72.819 - Decreased white blood cell count, unspecified - Subjective Interval history: No new complaints, denied melena, no bleeding. Feels less short of breath and yesterday, denies any chest pain, no fevers overnight, no abdominal pain, no dysuria. No diarrhea - Constitutional Vitals: Temp Pulse Resp BP Pulse Ox 98.1 F 77 16 138/70 98 01/22/18 07:09 01/22/18 07:09 01/22/18 07:31 01/22/18 07:09 01/22/18 07:31 General appearance: Present: cooperative, A&O X 3, answers questions appropriately Exam: - Head Head exam: Present: atraumatic, normocephalic - Eye Eye exam: Present: PERRL, conjuntiva pink, sclera anicteric Pupils: Present: PERRL - Neck Neck exam general surgery: Present: supple, trachea midline. Absent: lymphadenopathy - Respiratory Respiratory exam: Present: decreased breath sounds (Diminished breath sounds mainly on the right lung field, minimal diffuse wheezing), CTAB, wheezes. Absent: accessory muscle use, rales, rhonchi - Cardiovascular Cardiovascular exam: Present: RRR, +S1, +S2. Absent: diastolic murmur, gallop, rubs, systolic murmur - GI/Abdominal GI/Abdominal exam: Present: normal bowel sounds, soft, no peritoneal signs. Absent: distended, tenderness - Extremities Exam Extremities exam: Present: warm, radial pulses palpable and symmetrical. Absent : calf tenderness, cyanotic, pedal edema - Neurological Exam Neurological exam: Present: CN II-XII intact, oriented X3, no focal deficits. Absent: pronater drift, facial droop, speech deficit - Skin Skin exam: Present: dry, intact Internal Medicine: Result - Labs CBC & Chem 7: 01/22/18 04:04 01/22/18 04:04 Labs: Short CBC 01/22/18 Range/Units 04:04 WBC 10.0 D (4.3-11.1) K/mcL Hgb 7.5 L (12.9-16.9) g/dL Hct 24.5 L (37.5-50.1) % Plt Count 428 H (140-400) K/mcL Neutrophils # 9.1 H (1.6-8.9) K/mcL BMP 01/22/18 04:04 Sodium 137 Potassium 3.7 Chloride 103 Carbon Dioxide 26 BUN 32 H Creatinine 1.08 Glucose 215 H Calcium 8.4 L Consult Discharge Plan - Plan Referrals: Fermín Akhtar MD [Primary Care Provider] -
[2018-01-22] MEDS ORDERED: Cefepime HCl 1,000 MG in D5% in Water (Mini-Bag+) 100 ML IVPB SCH (09:00)
--- NOTE | 2018-01-22 13:01 | Gastroenterology Consult Note ---
<Milana Guerra - Last Filed: 01/22/18 12:58> Date of Encounter: 01/22/18 Time of Encounter: 10:00 - Assessment and plan (1) Anemia Current Visit: Yes Status: Acute Assessment and plan: Pt is on eliquis and Hgb has dropped 4 points in the past month. He denies GI symptom, bloody or tarry stools. Eliquis was given last night will hold and prep for colonoscopy/EGD in the am. Qualifiers: Anemia type: unspecified type Qualified Code(s): D64.9 - Anemia, unspecified (2) Atrial fibrillation with controlled ventricular rate Current Visit: No Status: Acute - Time Spent With Patient Total time spent is greater than 50% in coordination of care (as documented) at patient's floor/unit and/or counseling patient: GI History of Present Illness - Data of Consult Patient: new to practice Consult date: 01/22/18 Requesting Physician: Monie Sanchez MD - Consult Narrative Reason for consult: anemia History of present illness: Mr. Stephen is a 82 year old male with pmhx of Diabetes, hypertension, hyperlipidemia and COPD. He preents as a transfer for increased shortness of breath and general body weakness. He was treated here for pneumonia about 5 weeks ago. He is on 3L of oxygen at home. he stated having difficulty sleeping at night. He also endorsed cough with nasal congestion. He was started on eliquis 11/16 for new onselt A-fib. Hgb was found to be 7.5 which has dropped from 12.3 last month. He denies any bright red or tarry stools. He denies abdominal pain, nausea, vomiting, diarrhea, constipation, or dysphagia. He reports good appetite, states he has lost weight. He denies coronary stents or pacemaker. Colonoscopy: unsure if hes ever had EGD: unsure NSAIDS/ASA: denies Anticoagulants: eliquis (last dose 01/21 2054) Past Med Surg Social Fam HX - Past Medical History Medical history: COPD, diabetes, hyperlipidemia, hypertension Psychiatric history: no psych history - Social History Smoking Status: Former smoker Smokeless Tobacco Status: No Alcohol use: none Drug use: none - Family History Grandmother Living Status: Hx Family Neurologic Disorders: Yes (stroke) Mother Living Status: Hx Family Cardiac Disorders: Yes (heart failure) Review of Systems: GI: as per [facility] GENERAL: denies fever or chills EYES: denies yellow discoloration ENT: denies pain with swallowing or difficulty swallowing CARDIO: denies chest pain, palpitations RESP: Shortness of breath with exertion : denies change in color of urine NEURO: denies any weakness HEME: Denies any bruising MS: denies joint pain, joint swelling or back pain. DERM: denies rash or itching PSYCH: Denies history of anxiety or depression - Constitutional Vitals: Temp Pulse Resp BP Pulse Ox 97.7 F 69 16 135/57 98 01/22/18 10:44 01/22/18 10:44 01/22/18 11:29 01/22/18 10:44 01/22/18 11:29 Exam: CONSTITUTIONAL:~alert, no acute distress.~HEAD:~normocephalic.~EYES:~no jaundice.~NECK:~no obvious swelling.~HEART:~regular rate and rhythm, no murmurs. ~LUNGS:~bilateral coarse wheezes~ABDOMEN:~non distended, soft, non tender, no masses palpable, no organomegaly.~RECTAL EXAM:~Deferred.~EXTREMITIES:~no clubbing, cyanosis or edema.~SKIN:~no stigmata of chronic liver disease.~ NEUROLOGIC:~no obvious focal defect.~~~~ Results - Labs CBC & Chem 7: 01/22/18 04:04 01/22/18 04:04 Labs: Last Result Calcium 8.4 mg/dL (8.6-10.3) L 01/22/18 04:04 Stool Occult Blood Negative (Negative) 01/22/18 08:51 Entire Visit Hgb 7.5 g/dL (12.9-16.9) L 01/22/18 04:04 Hct 24.5 % (37.5-50.1) L 01/22/18 04:04 Consult Discharge Plan - Plan Referrals: Fermín Akhtar MD [Primary Care Provider] - <Sonny Barajas - Last Filed: 01/22/18 17:17> Date of Encounter: 01/22/18 Time of Encounter: 15:00 - Time Spent With Patient Total time spent is greater than 50% in coordination of care (as documented) at patient's floor/unit and/or counseling patient: GI History of Present Illness - Data of Consult Requesting Physician: Monie Sanchez MD - Consult Narrative History of present illness: Mr. Stephen is a 82 year old male - Constitutional Vitals: Temp Pulse Resp BP Pulse Ox 98.2 F 65 18 125/57 99 01/22/18 14:16 01/22/18 14:16 01/22/18 15:52 01/22/18 14:16 01/22/18 15:52 Results - Labs CBC & Chem 7: 01/22/18 04:04 01/22/18 04:04 Labs: Last Result Calcium 8.4 mg/dL (8.6-10.3) L 01/22/18 04:04 Stool Occult Blood Negative (Negative) 01/22/18 08:51 Entire Visit Hgb 7.5 g/dL (12.9-16.9) L 01/22/18 04:04 Hct 24.5 % (37.5-50.1) L 01/22/18 04:04 - Attending Attestation I have personally performed a face to face evaluation on this patient. I have reviewed and agree with the care plan. History and Exam by me shows: Patient with anemia. Currently on a Elaquis but normal renal function. We will hold for 1 day and he will have a scopes done tomorrow
[2018-01-22] MEDS: Levofloxacin 750 MG/150 ML 750 MG/150 ML BAG IVPB SCH (13:38)
[2018-01-22] MEDS: Pantoprazole 40 MG VIAL IVP SCH ×2 (13:39→16:44)
[2018-01-22] MEDS: Cefepime HCl 1,000 MG in Water for inj. (sterile) 20 ML 10 ML IVP SCH (16:27)
[2018-01-22] MEDS ORDERED: SODIUM CHLORIDE/NAHCO3/KCL/PEG 4,000 ML SOLN.RECON PO ONE (17:00)
[2018-01-22 19:56] LABS: Hematocrit 24.8 % (37.5-50.1); Hemoglobin 7.8 g/dL (12.9-16.9)
[2018-01-23] MEDS: MethylPREDNISolone 40 MG/ML VIAL IVP SCH ×2 (00:30→11:19)
[2018-01-23] MEDS: 0.9 % Sodium Chloride 1,000 ML IVC SCH ×2 (02:10→21:12)
[2018-01-23] MEDS: Cefepime HCl 1,000 MG in Water for inj. (sterile) 20 ML 10 ML IVP SCH ×2 (02:10→13:49)
[2018-01-23] MEDS: Ipratropium/Albuterol Neb 3 ML IH SCH ×7 (03:47→23:00)
[2018-01-23 05:39] LABS: Hematocrit 23.7 % (37.5-50.1); Hemoglobin 7.4 g/dL (12.9-16.9); Mean Corpuscular HGB Conc 31.2 g/dL (31.6-35.5); Mean Corpuscular Hemoglobin 27.9 pg (28.0-33.3); Mean Corpuscular Volume 89.4 fL (83.0-100.0); Mean Platelet Volume 9.3 fL (9.4-12.4); Platelet Count 423 K/mcL (140-400); Red Blood Count 2.65 M/mcL (4.19-5.50); Red Cell Distribution Width 15.6 % (11.5-14.5)
[2018-01-23 05:54] LABS: BUN/Creatinine Ratio 32 (6-26); Blood Urea Nitrogen 24 mg/dL (8-23); Carbon Dioxide 28 mEq/L (23-29); Chloride 104 mEq/L (98-107); Glucose 172 mg/dL (70-105); Osmolality,Calculated 294 (280-300); Potassium 3.6 mEq/L (3.5-5.1); Sodium 138 mEq/L (136-145); eGFR For African Americans > 60 (> 60); eGFR For Non-African Americans > 60 (> 60)
[2018-01-23] MEDS: Pantoprazole 40 MG VIAL IVP SCH ×2 (06:04→17:00)
[2018-01-23] MEDS: Tiotropium 18 MCG inhalation IH SCH (07:18)
[2018-01-23] MEDS: Diltiazem CD (24hr) 120 MG CAPSULE PO SCH (08:21)
[2018-01-23] MEDS: Metoprolol 100 MG TABLET PO SCH ×2 (08:22→20:39)
[2018-01-23] MEDS: amLODIPine 5 MG TABLET PO SCH (08:22)
[2018-01-23] MEDS: Insulin LISPRO 300 UNITS/3 ML VIAL SQ SCH ×4 (08:24→21:11)
[2018-01-23 08:58] LABS: INR 1.5; Prothrombin Time 16.4 Seconds (9.4-12.1)
[2018-01-23] MEDS ORDERED: 0.9 % Sodium Chloride 500 ML ONE (11:10)
[2018-01-23] MEDS ORDERED: *HR* Propofol 200 MG/20 ML VIAL IVP ONE ×2 (12:08→12:15)
[2018-01-23] MEDS ORDERED: Lidocaine -MPF 2% 2 ML VIAL ONE (12:08)
--- NOTE | 2018-01-23 12:57 | Anesthesia Evaluation PreOp ---
Date of Encounter: 01/23/18 Time of Encounter: 12:50 - Past History Planned Operation: EGD/colonscopy Cardiac History: HTN, Arrhythmia (a.fib. stable on metoprolol, last dose at 821.) Pulmonary History: Former smoker, COPD, YRIS Dx, Other (Admitted to hospital with acute exacerbation of COPD and pneumonia. Patient on routine nebulizers, home 02 at 3L.) Other Medical History: Diabetes Type II, Other (profoundly anemic with Hgb of 7. Currently being transfused.) Anesthesia History: No Prior Anesthetic Complications, Past Anesthesia Alcohol Use: none Drug use: none Medications and Allergies Albuterol Sulfate [Ventolin Hfa] 1 - 2 puff IH Q4-6H PRN 11/06/17 [History] Losartan Potassium [Cozaar] 100 mg PO DAILY 11/06/17 [History] Metoprolol Tartrate [Lopressor] 100 mg PO BID 11/06/17 [History] Tiotropium [Spiriva] 18 mcg IH DAILY 11/06/17 [History] Torsemide 5 mg PO DAILY 11/06/17 [History] amLODIPine [Norvasc] 10 mg PO DAILY 11/06/17 [History] metFORMIN [Glucophage] 850 mg PO BIDWM 11/06/17 [History] Budesonide/Formoterol 160/4.5 [Symbicort 160/4.5] 2 puff IH BID 11/27/17 [ History] Apixaban [Eliquis] 5 mg PO BID #60 tablet 12/05/17 [Rx] Diltiazem CD (24hr) [Cardizem CD] 120 mg PO DAILY #30 cap.er.24h 12/05/17 [Rx] predniSONE [PredniSONE] 5 mg PO DAILY #5 tablet 12/13/17 [Rx] Pravastatin Sodium [Pravachol] 20 mg PO DAILY 01/21/18 [History] 3 Allergy/AdvReac Type Severity Reaction Status Date / Time No Known Allergies Allergy Verified 01/20/18 10:09 - Meds/Allergy Pre-op Review Medications Reviewed: Yes Allergies Reviewed: Yes Beta Blockers on Current Med List: Yes (at 0822) Anesthesia Results - Labs 01/23/18 04:55 01/23/18 04:55 - Imaging EKG: image reviewed (sinus) Anesthesia Exam Selected Entries 03/27/18 12:25 Temperature 98.0 F Pulse Rate 60 Respiratory Rate 20 Blood Pressure 126/49 O2 Sat by Pulse Oximetry 99 Weight: 85 kg NPO (# of Hours): over 8 hours - HEENT Pupil (Motor): Pupils equal Teeth: Missing Denture Type: Upper: Complete Oral Opening: Greater than 3 - Cardiac Rhythm: Regular Murmur: None - Pulmonary Breath Sounds: bilateral Rhonchi Respiratory Effort: Symmetrical Anesthesia Assess/Plan ASA Score: 3 Modified Baker Scale for Level of Consciousness: Cooperative, oriented, and tranquil Anesthetic Plan: MAC Monitoring Plan: Standard Monitors Recovery Plan: Other (Discussed MAC anesthesia. Agreed to proceed.)
[2018-01-23] MEDS ORDERED: Tetracaine/Benzocaine/Butamben 200MG/SPRAY (100SPY/BOT) MM ONE (13:16)
--- NOTE | 2018-01-23 13:37 | Internal Med Progress Note ---
Date of Encounter: 01/23/18 Time of Encounter: 13:34 - Assessment and plan (1) Acute exacerbation of chronic obstructive airways disease Current Visit: No Status: Acute Assessment and plan: Acute on chronic hypoxic respiratory failure secondary to acute COPD exacerbation due to multifocal pneumonia/possible healthcare associated pneumonia present upon admission Levaquin day #4, Cefepime day #2 Continue Solu-Medrol, duo nebs, oxygen therapy uses 3 L continuously at home (2) Pneumonia Current Visit: No Status: Acute Qualifiers: Pneumonia type: due to unspecified organism Laterality: right Lung location: lower lobe of lung Qualified Code(s): J18.1 - Lobar pneumonia, unspecified organism (3) Acute blood loss anemia Current Visit: Yes Status: Acute Assessment and plan: Acute blood loss anemia secondary to GI losses ( GI bleed?) Has been on Eliquis since 10/2017 Continue Protonix IV, monitor CBC and consider transfusion GI consulted, likely EGD/colonoscopy today (4) Atrial fibrillation Current Visit: Yes Status: Acute Assessment and plan: Continue Metoprolol Eliquis stopped due to anemia Qualifiers: Atrial fibrillation type: paroxysmal Qualified Code(s): I48.0 - Paroxysmal atrial fibrillation (5) Leukopenia Current Visit: Yes Status: Acute Qualifiers: Leukopenia type: unspecified Qualified Code(s): D72.819 - Decreased white blood cell count, unspecified (6) Diabetes type 2, controlled Current Visit: Yes Status: Chronic Assessment and plan: On metformin and insulin sliding scale Qualifiers: Diabetes mellitus chcf insulin use: without termite control representative use Diabetes mellitus complication status: without complication Qualified Code(s): E11.9 - Type 2 diabetes mellitus without complications (7) HTN (hypertension) Current Visit: Yes Status: Chronic Assessment and plan: Continue Norvasc, metoprolol Qualifiers: Hypertension type: essential hypertension Qualified Code(s): I10 - Essential (primary) hypertension (8) Acute and chronic respiratory failure Current Visit: No Status: Acute Assessment and plan: On 3 L O2 at home, currently at baseline. Qualifiers: Respiratory failure complication: hypercapnia Qualified Code(s): J96.22 - Acute and chronic respiratory failure with hypercapnia - Subjective Interval history: Patient states he is breathing better. He denies any CP, worsening SOB, fatigue , melena, hematemesis, hematochezia, n/v, abdominal pain. - Constitutional Vitals: Temp Pulse Resp BP Pulse Ox 98.0 F 60 20 126/49 99 01/23/18 12:25 01/23/18 12:25 01/23/18 12:25 01/23/18 12:25 01/23/18 12:25 General appearance: Present: cooperative, A&O X 3, answers questions appropriately Exam: - Head Head exam: Present: atraumatic, normocephalic - Eye Eye exam: Present: PERRL, conjuntiva pink, sclera anicteric Pupils: Present: PERRL - Neck Neck exam general surgery: Present: supple, trachea midline. Absent: lymphadenopathy - Respiratory Respiratory exam: Present: decreased breath sounds (Diminished breath sounds mainly on the right lung field, minimal diffuse wheezing), CTAB, wheezes. Absent: accessory muscle use, rales, rhonchi - Cardiovascular Cardiovascular exam: Present: RRR, +S1, +S2. Absent: diastolic murmur, gallop, rubs, systolic murmur - GI/Abdominal GI/Abdominal exam: Present: normal bowel sounds, soft, no peritoneal signs. Absent: distended, tenderness - Extremities Exam Extremities exam: Present: warm, radial pulses palpable and symmetrical. Absent : calf tenderness, cyanotic, pedal edema - Neurological Exam Neurological exam: Present: CN II-XII intact, oriented X3, no focal deficits. Absent: pronater drift, facial droop, speech deficit - Skin Skin exam: Present: dry, intact Internal Medicine: Result - Labs CBC & Chem 7: 01/23/18 04:55 01/23/18 04:55 Labs: Short CBC 01/22/18 01/23/18 Range/Units 19:24 04:55 WBC 8.2 (4.3-11.1) K/mcL Hgb 7.8 L 7.4 L (12.9-16.9) g/dL Hct 24.8 L 23.7 L (37.5-50.1) % Plt Count 423 H (140-400) K/mcL BMP 01/23/18 04:55 Sodium 138 Potassium 3.6 Chloride 104 Carbon Dioxide 28 BUN 24 H Creatinine 0.74 Glucose 172 H Calcium 8.0 L - ABG Interpretation ABG results: PT/INR, D-dimer PT 16.4 Seconds (9.4-12.1) H 01/23/18 08:36 Consult Discharge Plan - Plan Referrals: Fermín Akhtar MD [Primary Care Provider] -
[2018-01-23] MEDS: Levofloxacin 750 MG/150 ML 750 MG/150 ML BAG IVPB SCH (15:10)
[2018-01-24] MEDS: MethylPREDNISolone 40 MG/ML VIAL IVP SCH ×2 (00:53→12:06)
[2018-01-24] MEDS: Cefepime HCl 1,000 MG in Water for inj. (sterile) 20 ML 10 ML IVP SCH ×2 (00:53→14:33)
[2018-01-24] MEDS: Ipratropium/Albuterol Neb 3 ML IH SCH ×3 (03:03→11:39)
[2018-01-24] MEDS: Pantoprazole 40 MG VIAL IVP SCH ×2 (05:56→17:32)
[2018-01-24] MEDS: Tiotropium 18 MCG inhalation IH SCH (07:31)
[2018-01-24] MEDS: Insulin LISPRO 300 UNITS/3 ML VIAL SQ SCH ×4 (08:15→20:45)
[2018-01-24] MEDS: Diltiazem CD (24hr) 120 MG CAPSULE PO SCH (08:38)
[2018-01-24] MEDS: amLODIPine 5 MG TABLET PO SCH (08:38)
[2018-01-24] MEDS: Metoprolol 100 MG TABLET PO SCH ×2 (08:39→20:45)
[2018-01-24 08:58] LABS: BUN/Creatinine Ratio 36 (6-26); Blood Urea Nitrogen 27 mg/dL (8-23); Calcium 8.2 mg/dL (8.6-10.3); Carbon Dioxide 27 mEq/L (23-29); Chloride 106 mEq/L (98-107); Glucose 185 mg/dL (70-105); Osmolality,Calculated 300 (280-300); Potassium 3.8 mEq/L (3.5-5.1); Sodium 140 mEq/L (136-145); eGFR For African Americans > 60 (> 60); eGFR For Non-African Americans > 60 (> 60)
[2018-01-24 09:32] LABS: Hematocrit 29.7 % (37.5-50.1); Lymphocytes # 0.4 K/mcL (0.6-4.6); Lymphocytes % 5.1 %; Mean Corpuscular HGB Conc 31.3 g/dL (31.6-35.5); Mean Corpuscular Hemoglobin 28.1 pg (28.0-33.3); Mean Corpuscular Volume 89.7 fL (83.0-100.0); Mean Platelet Volume 9.5 fL (9.4-12.4); Monocytes # 0.2 K/mcL (0.0-1.3); Monocytes % 3.5 %; Neutrophils # 6.2 K/mcL (1.6-8.9); Platelet Count 433 K/mcL (140-400); Red Blood Count 3.31 M/mcL (4.19-5.50); Red Cell Distribution Width 15.4 % (11.5-14.5); Segmented Neutrophils % 90.4 %
[2018-01-24 09:34] LABS: Hemoglobin 9.3 g/dL (12.9-16.9)
--- NOTE | 2018-01-24 12:29 | Internal Med Progress Note ---
Date of Encounter: 01/24/18 Time of Encounter: 12:27 - Assessment and plan (1) Acute exacerbation of chronic obstructive airways disease Current Visit: No Status: Acute Assessment and plan: Acute on chronic hypoxic respiratory failure secondary to acute COPD exacerbation due to multifocal pneumonia/possible healthcare associated pneumonia present upon admission Levaquin day #5, Cefepime day #3 TaperSolu-Medrol, as tolerated duo nebs, oxygen therapy uses 2- 3 L continuously at home currently 2 L here today - Current antibiotics will be continued since patient is clinically improving - R/P CT chest as outpatient. (2) Pneumonia Current Visit: No Status: Acute Assessment and plan: Multifocal pneumonia seen on CTA of chest 01/20 Continue Cefepime and Levaquin Qualifiers: Pneumonia type: due to unspecified organism Laterality: right Lung location: lower lobe of lung Qualified Code(s): J18.1 - Lobar pneumonia, unspecified organism (3) Acute blood loss anemia Current Visit: Yes Status: Acute Assessment and plan: Acute blood loss anemia secondary to GI losses ( GI bleed?) Has been on Eliquis since 10/2017 Continue Protonix IV, monitor CBC and consider transfusion Colonoscopy done 01/23: Showed mild diverticulosis in sigmoid/descending colon and splenic/hepatic flexure and ascending colon. Also showed internal hemorrhoids. He is high risk for further GI bleed and Eliquis is held. We had discussion of risks and benefits of anticoagulation in patients with atrial fibrillation . We discussed increased risk of stroke or other thrombus/ emboli without anticoagulation which can lead to further morbidity. We discussed increased risk of further GI bleed that can lead to acute blood loss again which can also lead to further morbidity and these need to be taken into consideration. After discussion, patient would like to hold off anticoagulation which I feel is appropriate given his need for PRBC duing this admission. Recheck H&H in AM, if stable can be discharged with follow-up with pcp in 2-3 days. (4) Atrial fibrillation Current Visit: Yes Status: Acute Assessment and plan: Currently rate controlled Continue Metoprolol Eliquis stopped due to anemia Qualifiers: Atrial fibrillation type: paroxysmal Qualified Code(s): I48.0 - Paroxysmal atrial fibrillation (5) Leukopenia Current Visit: Yes Status: Resolved Qualifiers: Leukopenia type: unspecified Qualified Code(s): D72.819 - Decreased white blood cell count, unspecified (6) Diabetes type 2, controlled Current Visit: Yes Status: Chronic Assessment and plan: On metformin and insulin sliding scale Qualifiers: Diabetes mellitus residential insulin use: without residential use Diabetes mellitus complication status: without complication Qualified Code(s): E11.9 - Type 2 diabetes mellitus without complications (7) HTN (hypertension) Current Visit: Yes Status: Chronic Assessment and plan: Continue Norvasc, metoprolol Qualifiers: Hypertension type: essential hypertension Qualified Code(s): I10 - Essential (primary) hypertension (8) Acute and chronic respiratory failure Current Visit: No Status: Acute Assessment and plan: On 3 L O2 at home, currently at baseline. Qualifiers: Respiratory failure complication: hypercapnia Qualified Code(s): J96.22 - Acute and chronic respiratory failure with hypercapnia - Subjective Interval history: Breathing now at baseline. He denies any CP, worsening SOB, fatigue, melena, hematemesis, hematochezia, n/v, abdominal pain. Tolerated breakfast this AM. - Constitutional Vitals: Temp Pulse Resp BP Pulse Ox 97.4 F L 63 20 154/67 99 01/24/18 11:35 01/24/18 11:35 01/24/18 11:40 01/24/18 11:35 01/24/18 11:40 General appearance: Present: cooperative, A&O X 3, answers questions appropriately - Head Head exam: Present: atraumatic, normocephalic - Eye Eye exam: Present: PERRL, conjuntiva pink, sclera anicteric Pupils: Present: PERRL - Neck Neck exam general surgery: Present: supple, trachea midline. Absent: lymphadenopathy - Respiratory Respiratory exam: Present: decreased breath sounds, wheezes. Absent: accessory muscle use, rales, rhonchi Additional comments: same since yeseterday - Cardiovascular Cardiovascular exam: Present: RRR, +S1, +S2. Absent: diastolic murmur, gallop, rubs, systolic murmur - GI/Abdominal GI/Abdominal exam: Present: normal bowel sounds, soft, no peritoneal signs. Absent: distended, tenderness - Extremities Exam Extremities exam: Present: warm, radial pulses palpable and symmetrical. Absent : calf tenderness, cyanotic, pedal edema - Neurological Exam Neurological exam: Present: CN II-XII intact, oriented X3, no focal deficits. Absent: pronater drift, facial droop, speech deficit - Skin Skin exam: Present: dry, intact Internal Medicine: Result - Labs CBC & Chem 7: 01/24/18 07:22 01/24/18 07:22 Labs: Short CBC 01/24/18 Range/Units 07:22 WBC 6.8 (4.3-11.1) K/mcL Hgb 9.3 L D (12.9-16.9) g/dL Hct 29.7 L (37.5-50.1) % Plt Count 433 H (140-400) K/mcL Neutrophils # 6.2 (1.6-8.9) K/mcL BMP 01/24/18 07:22 Sodium 140 Potassium 3.8 Chloride 106 Carbon Dioxide 27 BUN 27 H Creatinine 0.74 Glucose 185 H Calcium 8.2 L - ABG Interpretation ABG results: PT/INR, D-dimer PT 16.4 Seconds (9.4-12.1) H 01/23/18 08:36 Consult Discharge Plan - Plan Referrals: Fermín Akhtar MD [Primary Care Provider] -
[2018-01-24] MEDS ORDERED: Levofloxacin 750 MG/150 ML 750 MG/150 ML BAG IVPB SCH (13:00)
[2018-01-24] MEDS ORDERED: Ipratropium/Albuterol Neb 3 ML IH PRN (14:38)
[2018-01-24] MEDS: Levofloxacin 750 MG/150 ML 750 MG/150 ML BAG IVPB SCH (14:41)
[2018-01-25] MEDS: Cefepime HCl 1,000 MG in Water for inj. (sterile) 20 ML 10 ML IVP SCH ×2 (00:52→14:09)
[2018-01-25] MEDS: MethylPREDNISolone 40 MG/ML VIAL IVP SCH ×2 (00:52→12:32)
[2018-01-25 05:02] LABS: Hematocrit 28.3 % (37.5-50.1); Hemoglobin 9.1 g/dL (12.9-16.9); Immature Granulocytes % 1.9 % (0-4); Lymphocytes # 0.4 K/mcL (0.6-4.6); Lymphocytes % 5.2 %; Mean Corpuscular HGB Conc 32.2 g/dL (31.6-35.5); Mean Corpuscular Hemoglobin 28.6 pg (28.0-33.3); Mean Platelet Volume 9.6 fL (9.4-12.4); Monocytes # 0.3 K/mcL (0.0-1.3); Monocytes % 4.2 %; Neutrophils # 6.1 K/mcL (1.6-8.9); Platelet Count 399 K/mcL (140-400); Red Blood Count 3.18 M/mcL (4.19-5.50); Red Cell Distribution Width 15.3 % (11.5-14.5); Segmented Neutrophils % 88.7 %
[2018-01-25 05:16] LABS: BUN/Creatinine Ratio 39 (6-26); Blood Urea Nitrogen 29 mg/dL (8-23); Calcium 7.8 mg/dL (8.6-10.3); Carbon Dioxide 28 mEq/L (23-29); Chloride 108 mEq/L (98-107); Glucose 186 mg/dL (70-105); Osmolality,Calculated 301 (280-300); Sodium 140 mEq/L (136-145); eGFR For African Americans > 60 (> 60); eGFR For Non-African Americans > 60 (> 60)
[2018-01-25] MEDS: Pantoprazole 40 MG VIAL IVP SCH ×2 (05:58→17:37)
[2018-01-25] MEDS: Tiotropium 18 MCG inhalation IH SCH (08:14)
[2018-01-25] MEDS: Torsemide 20 MG TABLET PO SCH (08:18)
[2018-01-25] MEDS: Aspirin Enteric Coated 81 MG Tablet PO SCH (08:18)
[2018-01-25] MEDS: Insulin LISPRO 300 UNITS/3 ML VIAL SQ SCH ×4 (08:18→20:34)
[2018-01-25] MEDS: *HR* Heparin 5,000 UNIT/ML VIAL SQ SCH ×2 (09:49→17:37)
[2018-01-25] MEDS: Metoprolol 100 MG TABLET PO SCH (14:03)
[2018-01-25] MEDS: amLODIPine 5 MG TABLET PO SCH (14:03)
[2018-01-25] MEDS: Diltiazem CD (24hr) 120 MG CAPSULE PO SCH (14:03)
[2018-01-25] MEDS: Levofloxacin 750 MG/150 ML 750 MG/150 ML BAG IVPB SCH (14:09)
--- NOTE | 2018-01-25 14:39 | Discharge Summary ---
- NOTES TO OUTPATIENT PROVIDER Notes to Outpatient Provider: - Follow-up H&H in 2-3 days. - Follow-up with primary care physician in 2-3 days. - Follow-up with Gastroenterology for a repeat EGD as outpatient. See EGD report from (01/23/18) Orders not resulted at time of discharge: Pending orders 01/20/18 22:55 Culture,Sputum with Gram Stain [RM] Stat 01/26/18 04:00 BMP [Basic Metabolic Panel] AM 0400 Complete Blood Count [HEME] AM 0400 Date of Encounter: 01/25/18 Time of Encounter: 14:37 - Discharge Diagnosis (1) Acute exacerbation of chronic obstructive airways disease Priority: Primary Status: Acute (2) Pneumonia Priority: Secondary Status: Acute Qualifiers: Pneumonia type: due to unspecified organism Laterality: right Lung location: lower lobe of lung Qualified Code(s): J18.1 - Lobar pneumonia, unspecified organism (3) Acute blood loss anemia Priority: Secondary Status: Acute (4) Atrial fibrillation Priority: Secondary Status: Acute Qualifiers: Atrial fibrillation type: paroxysmal Qualified Code(s): I48.0 - Paroxysmal atrial fibrillation (5) Leukopenia Priority: Secondary Status: Resolved Qualifiers: Leukopenia type: unspecified Qualified Code(s): D72.819 - Decreased white blood cell count, unspecified (6) Diabetes type 2, controlled Priority: Secondary Status: Chronic Qualifiers: Diabetes mellitus snf insulin use: without termite treater use Diabetes mellitus complication status: without complication Qualified Code(s): E11.9 - Type 2 diabetes mellitus without complications (7) HTN (hypertension) Priority: Secondary Status: Chronic Qualifiers: Hypertension type: essential hypertension Qualified Code(s): I10 - Essential (primary) hypertension (8) Acute and chronic respiratory failure Priority: Secondary Status: Acute Qualifiers: Respiratory failure complication: hypercapnia Qualified Code(s): J96.22 - Acute and chronic respiratory failure with hypercapnia Hospital course: Mr. Stephen is a 82 year old male with medical history that include atrial fibrillation on Eliquis (recent diagnosis), COPD on home oxygen, Diabetes, hypertension, hyperlipidemia. He preents as a transfer for increased shortness of breath and general body weakness. He was treated here for pneumonia about 5 weeks ago. He is on 3L of oxygen at home. he stated having difficulty sleeping at night. He also endorsed cough with nasal congestion. he did not receive the influenza vacination last year. He denies headache and abdominal pain. He had CTA done showing multifocal pneumonia. He was noted to have mild COPD exacerbation. He also had acute drip in hemoglobin, baseline was 12.3 one month ago and on admission was 7.5. He was treated for COPD exacerbation with Solu Medrol, Cefepime, Levaquin. Patient respiratory status improved. Eliquis was held due to suspicion for GI bleed. He required 1 unit PRBC transfusion during admission. He remained hemodynamically stable and hemoglobin stayed stable at 9.1. He had an EGD on 01/23/18 that showed 20 mm poly and no active bleed. There were multiple diverticula, and also internal hemorrhoids that were non-bleeding. Patient respiratory status improved after a 5 day burst of steroid therapy and antibiotics. He had no further signs of bleeding. He was discharged home in stable condition. - Patient opted out of Eliquis after discussing risks/benefits of anticoagulation with atrial fibrillation. Patient was aware of risk of VTE with afib but with anticoagulation places at risk for bleeding. He will be discharged on aspirin 81 mg daily with BID Prilosec with close follow-up with GI. - Of note, he took Levaquin in a few months ago and had + strep pneumonia antigen. Instead of Levaquin he will be discharged home with Omnicef since he likely improved on this admission with Cefepime. - Time Spent with Patient Total time spent providing and/or coordinating discharge services: - Discharge Medications Prescriptions: Aspirin Enteric Coated [Aspirin EC] 81 mg PO DAILY #30 tablet.dr Home Medications: Albuterol Sulfate [Ventolin Hfa] 1 - 2 puff IH Q4-6H PRN 11/06/17 [History] Losartan Potassium [Cozaar] 100 mg PO DAILY 11/06/17 [History] Tiotropium [Spiriva] 18 mcg IH DAILY 11/06/17 [History] Torsemide 5 mg PO DAILY 11/06/17 [History] amLODIPine [Norvasc] 10 mg PO DAILY 11/06/17 [History] metFORMIN [Glucophage] 850 mg PO BIDWM 11/06/17 [History] Budesonide/Formoterol 160/4.5 [Symbicort 160/4.5] 2 puff IH BID 11/27/17 [ History] Diltiazem CD (24hr) [Cardizem CD] 120 mg PO DAILY #30 cap.er.24h 12/05/17 [Rx] predniSONE [PredniSONE] 5 mg PO DAILY #5 tablet 12/13/17 [Rx] Pravastatin Sodium [Pravachol] 20 mg PO DAILY 01/21/18 [History] Aspirin Enteric Coated [Aspirin EC] 81 mg PO DAILY #30 tablet.dr 01/25/18 [Rx] Levofloxacin [Levaquin] 750 mg PO DAILY #5 tablet 01/25/18 [Rx] Omeprazole [PriLOSEC] 40 mg PO BID #56 cap 01/25/18 [Rx] Allergies/Adverse Reactions: 3 Allergy/AdvReac Type Severity Reaction Status Date / Time No Known Allergies Allergy Verified 01/20/18 10:09 Date of admission: 01/25/18 08:56 Primary care physician: Fermín Akhtar MD Consults: 01/22/18 08:46 Consult to Gastroenterology [CONS] Routine Consulting Provider: [facility] [place] Reason for Consult: acute blood loss anemia Call Completed: Yes Discharging clinician: Danae Trinidad - Constitutional Vitals: Temp Pulse Resp BP Pulse Ox 97.6 F 56 14 154/70 98 01/25/18 11:13 01/25/18 11:13 01/25/18 11:13 01/25/18 11:13 01/25/18 11:13 General appearance: Present: cooperative, A&O X 3, answers questions appropriately Exam: - Head Head exam: Present: atraumatic, normocephalic - Eye Eye exam: Present: PERRL, conjuntiva pink, sclera anicteric Pupils: Present: PERRL - Neck Neck exam general surgery: Present: supple, trachea midline. Absent: lymphadenopathy - Respiratory Respiratory exam: Present: decreased breath sounds (Diminished breath sounds mainly on the right lung field, minimal diffuse wheezing), CTAB, wheezes. Absent: accessory muscle use, rales, rhonchi - Cardiovascular Cardiovascular exam: Present: RRR, +S1, +S2. Absent: diastolic murmur, gallop, rubs, systolic murmur - GI/Abdominal GI/Abdominal exam: Present: normal bowel sounds, soft, no peritoneal signs. Absent: distended, tenderness - Extremities Exam Extremities exam: Present: warm, radial pulses palpable and symmetrical. Absent : calf tenderness, cyanotic, pedal edema - Neurological Exam Neurological exam: Present: CN II-XII intact, oriented X3, no focal deficits. Absent: pronater drift, facial droop, speech deficit - Skin Skin exam: Present: dry, intact - Patient Status Disposition: Home, Self-Care Condition: Undetermined Functional capacity at discharge: independent ambulation - Discharge Instructions Follow Up With: Fermín Akhtar MD [Primary Care Provider] - - Diet and Activity Activity: increase activity as tolerated Diet: advance to your usual diet
[2018-01-25] MEDS: Budesonide/Formoterol 160/4.5 MDI IH SCH (20:46)
[2018-01-26] MEDS: Cefepime HCl 1,000 MG in Water for inj. (sterile) 20 ML 10 ML IVP SCH (01:36)
[2018-01-26] MEDS: Pantoprazole 40 MG VIAL IVP SCH (05:31)
[2018-01-26] MEDS: *HR* Heparin 5,000 UNIT/ML VIAL SQ SCH (05:31)
[2018-01-26 05:34] LABS: Hematocrit 29.4 % (37.5-50.1); Hemoglobin 9.5 g/dL (12.9-16.9); Immature Granulocytes % 1.3 % (0-4); Lymphocytes # 0.6 K/mcL (0.6-4.6); Lymphocytes % 9.7 %; Mean Corpuscular HGB Conc 32.3 g/dL (31.6-35.5); Mean Corpuscular Hemoglobin 28.4 pg (28.0-33.3); Mean Corpuscular Volume 87.8 fL (83.0-100.0); Mean Platelet Volume 9.9 fL (9.4-12.4); Monocytes # 0.5 K/mcL (0.0-1.3); Monocytes % 7.7 %; Platelet Count 386 K/mcL (140-400); Red Blood Count 3.35 M/mcL (4.19-5.50); Red Cell Distribution Width 15.2 % (11.5-14.5); Segmented Neutrophils % 81.3 %
[2018-01-26 06:40] LABS: BUN/Creatinine Ratio 42 (6-26); Blood Urea Nitrogen 31 mg/dL (8-23); Calcium 7.7 mg/dL (8.6-10.3); Carbon Dioxide 26 mEq/L (23-29); Chloride 106 mEq/L (98-107); Glucose 165 mg/dL (70-105); Osmolality,Calculated 298 (280-300); Potassium 3.8 mEq/L (3.5-5.1); Sodium 139 mEq/L (136-145); eGFR For African Americans > 60 (> 60); eGFR For Non-African Americans > 60 (> 60)
[2018-01-26 07:08] VITALS: BP 159/69
[2018-01-26] MEDS ORDERED: FLUARIX QUAD 2017-18 36MOS UP/PF 0.5 ML SYRINGE IM ONE (07:48)
[2018-01-26] MEDS: Budesonide/Formoterol 160/4.5 MDI IH SCH (07:56)
[2018-01-26] MEDS: Tiotropium 18 MCG inhalation IH SCH (07:57)
[2018-01-26] MEDS: Torsemide 20 MG TABLET PO SCH (08:11)
[2018-01-26] MEDS: Insulin LISPRO 300 UNITS/3 ML VIAL SQ SCH (08:11)
[2018-01-26] MEDS: Diltiazem CD (24hr) 120 MG CAPSULE PO SCH (08:11)
[2018-01-26] MEDS: amLODIPine 5 MG TABLET PO SCH (08:11)
[2018-01-26] MEDS: Aspirin Enteric Coated 81 MG Tablet PO SCH (08:11)
--- NOTE | 2018-01-26 10:01 | Internal Med Progress Note ---
Date of Encounter: 01/26/18 Time of Encounter: 09:53 - Assessment and plan (1) Acute exacerbation of chronic obstructive airways disease Current Visit: No Status: Acute Assessment and plan: Acute on chronic hypoxic respiratory failure secondary to acute COPD exacerbation due to multifocal pneumonia/possible healthcare associated pneumonia present upon admission discharge with omnicef Order made for repeat ct chest in 4 weeks (2) Pneumonia Current Visit: No Status: Acute Assessment and plan: Multifocal pneumonia seen on CTA of chest 01/20 Continue Cefepime and Levaquin Qualifiers: Pneumonia type: due to unspecified organism Laterality: right Lung location: lower lobe of lung Qualified Code(s): J18.1 - Lobar pneumonia, unspecified organism (3) Acute blood loss anemia Current Visit: Yes Status: Acute Assessment and plan: Acute blood loss anemia secondary to GI losses ( GI bleed?) Has been on Eliquis since 10/2017 Continue Protonix IV, monitor CBC and consider transfusion Colonoscopy done 01/23: Showed mild diverticulosis in sigmoid/descending colon and splenic/hepatic flexure and ascending colon. Also showed internal hemorrhoids. He is high risk for further GI bleed and Eliquis is held. We had discussion of risks and benefits of anticoagulation in patients with atrial fibrillation . We discussed increased risk of stroke or other thrombus/ emboli without anticoagulation which can lead to further morbidity. We discussed increased risk of further GI bleed that can lead to acute blood loss again which can also lead to further morbidity and these need to be taken into consideration. After discussion, patient would like to hold off anticoagulation which I feel is appropriate given his need for PRBC duing this admission. Recheck H&H in AM, if stable can be discharged with follow-up with pcp in 2-3 days. (4) Atrial fibrillation Current Visit: Yes Status: Acute Assessment and plan: Currently rate controlled Continue Metoprolol Eliquis stopped due to anemia Qualifiers: Atrial fibrillation type: paroxysmal Qualified Code(s): I48.0 - Paroxysmal atrial fibrillation (5) Leukopenia Current Visit: Yes Status: Resolved Qualifiers: Leukopenia type: unspecified Qualified Code(s): D72.819 - Decreased white blood cell count, unspecified (6) Diabetes type 2, controlled Current Visit: Yes Status: Chronic Assessment and plan: On metformin and insulin sliding scale Qualifiers: Diabetes mellitus usp insulin use: without usp use Diabetes mellitus complication status: without complication Qualified Code(s): E11.9 - Type 2 diabetes mellitus without complications (7) HTN (hypertension) Current Visit: Yes Status: Chronic Assessment and plan: Continue Norvasc, metoprolol Qualifiers: Hypertension type: essential hypertension Qualified Code(s): I10 - Essential (primary) hypertension (8) Acute and chronic respiratory failure Current Visit: No Status: Acute Assessment and plan: On 3 L O2 at home, currently at baseline. Qualifiers: Respiratory failure complication: hypercapnia Qualified Code(s): J96.22 - Acute and chronic respiratory failure with hypercapnia - Subjective Interval history: NO complaints, no acute events. Patient waiting on ride. - Constitutional Vitals: Temp Pulse Resp BP Pulse Ox 97.6 F 57 18 159/69 94 01/26/18 07:02 01/26/18 07:02 01/26/18 07:02 01/26/18 07:02 01/26/18 07:02 General appearance: Present: cooperative, A&O X 3, answers questions appropriately Exam: - Head Head exam: Present: atraumatic, normocephalic - Eye Eye exam: Present: PERRL, conjuntiva pink, sclera anicteric Pupils: Present: PERRL - Neck Neck exam general surgery: Present: supple, trachea midline. Absent: lymphadenopathy - Respiratory Respiratory exam: Present: decreased breath sounds (Diminished breath sounds mainly on the right lung field, minimal diffuse wheezing), CTAB, wheezes. Absent: accessory muscle use, rales, rhonchi - Cardiovascular Cardiovascular exam: Present: RRR, +S1, +S2. Absent: diastolic murmur, gallop, rubs, systolic murmur - GI/Abdominal GI/Abdominal exam: Present: normal bowel sounds, soft, no peritoneal signs. Absent: distended, tenderness - Extremities Exam Extremities exam: Present: warm, radial pulses palpable and symmetrical. Absent : calf tenderness, cyanotic, pedal edema - Neurological Exam Neurological exam: Present: CN II-XII intact, oriented X3, no focal deficits. Absent: pronater drift, facial droop, speech deficit - Skin Skin exam: Present: dry, intact Internal Medicine: Result - Labs CBC & Chem 7: 01/26/18 04:06 01/26/18 04:06 Labs: Short CBC 01/26/18 Range/Units 04:06 WBC 6.2 (4.3-11.1) K/mcL Hgb 9.5 L (12.9-16.9) g/dL Hct 29.4 L (37.5-50.1) % Plt Count 386 (140-400) K/mcL Neutrophils # 5.0 (1.6-8.9) K/mcL BMP 01/26/18 04:06 Sodium 139 Potassium 3.8 Chloride 106 Carbon Dioxide 26 BUN 31 H Creatinine 0.73 Glucose 165 H Calcium 7.7 L - ABG Interpretation ABG results: PT/INR, D-dimer PT 16.4 Seconds (9.4-12.1) H 01/23/18 08:36 Consult Discharge Plan - Plan Referrals: Fermín Akhtar MD [Primary Care Provider] - 02/01/18 2:00 pm ( ) Prescriptions: Aspirin Enteric Coated [Aspirin EC] 81 mg PO DAILY #30 tablet. Cefdinir [Omnicef] 300 mg PO BID #20 capsule Omeprazole [PriLOSEC] 40 mg PO BID #56 cap
== END 2018-01-26 11:10 | disposition home or self-care (01) | DRG 190 ==
LOC: 3ANU
PROVIDERS: ADMIT Internal Medicine; ATTEND Internal Medicine

== ENCOUNTER 2019-03-04 04:02 | Inpatient (IN) ==
[2019-03-04] MEDS ORDERED: Ondansetron 4 MG/2 ML VIAL IVP PRN (09:54)
[2019-03-04] MEDS ORDERED: Naloxone 0.4 MG/ML INJ IVP PRN (09:54)
[2019-03-04] MEDS ORDERED: D5% in Water 1,000 ML IVC PRN (09:57)
[2019-03-04] MEDS ORDERED: *HR* Dextrose 50 % in Water (Syg) 50 ML SYRINGE IVP PRN (09:57)
[2019-03-04] MEDS ORDERED: Dextrose Gel 15 GM/37.5 ML TUBE PO PRN ×2 (09:57)
[2019-03-04] MEDS: Ipratropium/Albuterol Neb 3 ML IH SCH ×3 (11:01→20:43)
--- NOTE | 2019-03-04 11:35 | Internal Med History&Physical ---
Date of Encounter: 03/04/19 Time of Encounter: 09:45 Internal Medicine - H&P: HPI Chief complaint: SOB Admitted From: Hospital to Hospital Transfer History of present illness: Mr. Stephen is a 83 year old male with history of oxygen dependent COPD, diabetes, CAD, hypertension, chronic anemia, who presented to the [facility] ED with acute on chronic dyspnea. He states that he has been having dyspnea for the last 4 weeks that was acutely worsening over the weekend. Associated with cough and sputum production. No fever/chills or nausea/vomiting. Denies any chest pain, palpitation, orthopnea, PND, or leg swelling. Denies any recent immobilization, surgery, or hemoptysis. No melena, hematochezia, bright red blood per rectum, or hematemesis. Denies any GI/ symptoms. At the outside hospital ED, he was afebrile and hemodynamically stable. Required 4 L of oxygen (on 2.5-3L at home). Workup showed leukocytosis of 12.6 with chest x-ray finding of bibasilar opacities. EKG showed normal sinus rhythm with PVCs and troponin was negative. Lactic acid was normal. He was started on IV Rocephin/azithromycin, Lasix 40 mg, steroid, bronchodilator, and transferred to [facility] for further management. He states that he feels much better after being started on the treatment given at the outside hospital ED. Past Med Surg Social Fam HX - Past Medical History Attestation: Yes The following information was validated with the patient. Medical history: COPD, coronary artery disease, diabetes, GERD, hyperlipidemia, hypertension Psychiatric history: no psych history - Past Surgical History Additional surgical history: heart cath - Social History Smoking Status: Former smoker Smokeless Tobacco Status: No Alcohol use: none Drug use: none - Family History Grandmother Living Status: Hx Family Neurologic Disorders: Yes (stroke) Mother Living Status: Hx Family Cardiac Disorders: Yes (heart failure) Internal Medicine - H&P: Meds RX: Albuterol Sulfate [Ventolin Hfa] 1 - 2 puff IH Q4-6H PRN 11/06/17 [History] RX: Losartan Potassium [Cozaar] 100 mg PO DAILY 11/06/17 [History] RX: Torsemide 5 mg PO DAILY 11/06/17 [History] RX: amLODIPine [Norvasc] 10 mg PO DAILY 11/06/17 [History] RX: metFORMIN [Glucophage] 850 mg PO BIDWM 11/06/17 [History] RX: Budesonide/Formoterol 160/4.5 [Symbicort 160/4.5] 2 puff IH BID 11/27/17 [History] RX: Diltiazem CD (24hr) [Cardizem CD] 120 mg PO DAILY #30 cap.er.24h 12/05/17 [Rx] RX: Pravastatin Sodium [Pravachol] 20 mg PO DAILY 01/21/18 [History] RX: Omeprazole [PriLOSEC] 40 mg PO BID #56 cap 01/25/18 [Rx] RX: Cyanocobalamin (Vitamin B-12) [Vitamin B-12] 1,000 mcg PO DAILY 06/26/18 [History] Albuterol Sulfate [Albuterol Inhaler] 2 puff IH Q4HR PRN #1 hfa.aer.ad 10/08/18 [Rx] Aspirin [Ecotrin] 325 mg PO DAILY 10/08/18 [History] Allergy/AdvReac Type Severity Reaction Status Date / Time No Known Allergies Allergy Verified 03/04/19 01:10 All Systems PM: A 10-system review of systems was performed and is negative for pertinent findings except as documented above in the HPI. - Constitutional Vitals: Temp Pulse Resp BP Pulse Ox 98.1 F 74 18 139/65 95 03/04/19 10:10 03/04/19 10:10 03/04/19 10:10 03/04/19 10:10 03/04/19 10:10 Exam: General: Alert and oriented, not in acute distress. HEENT:EOMI, pupils equal, round and reactive. Cardiovascular:Normal S1 & S2, No JVD. Pulse regular. Lungs: Diminished breath sounds bilaterally with scattered wheezes Abdomen:Soft, non-tender, no rigidity. Extremities:No deformity or swelling Neurological:Normal cognition and motor skills. Non-focal Skin:Normal color, no rash, no lesions. Pulses:Carotid and radial pulses normal +2. Rest of the physical exam is non contributory - Assessment and Plan (1) Acute and chronic respiratory failure Current Visit: Yes Status: Acute Assessment and plan: History of COPD on 2.5-3 L of oxygen currently on 4L with clinical findings consistent with continue acquired pneumonia Management as below, wean as tolerated Qualifiers: Respiratory failure complication: hypoxia Qualified Code(s): J96.21 - Acute and chronic respiratory failure with hypoxia (2) Community acquired pneumonia Current Visit: Yes Status: Acute Assessment and plan: Presented with acute on chronic dyspnea associated with leukocytosis and chest x-ray finding of bibasilar opacities started on IV Josesito/azithromycin, continue Blood culture obtained from the outside hospital, follow up Qualifiers: Laterality: unspecified laterality Qualified Code(s): J18.9 - Pneumonia, unspecified organism (3) Acute exacerbation of chronic obstructive airways disease Current Visit: Yes Status: Acute Assessment and plan: Continue IV Solu-Medrol, bronchodilators, and antibiotics as above (4) CAD (coronary artery disease) Current Visit: No Status: Chronic Assessment and plan: Left heart catheterization on 05/2018 showed mild nonobstructive CAD No signs and symptoms of angina with negative troponin resume home meds once reconciled Qualifiers: Coronary Disease-Associated Artery/Lesion type: [place] artery [place] vs. transplanted heart: [place] heart Associated angina: without angina Qualified Code(s): I25.10 - Atherosclerotic heart disease of [place] coronary artery without angina pectoris (5) Anemia Current Visit: Yes Status: Chronic Assessment and plan: History of chronic anemia with with low irone level noted on January 2019 EGD/colonoscopy on 12/2017 showed chronic gastritis and single non-bleeding angiodysplasia. It also showed 20mm polyps x 2 and diverticulosis no symptoms of active GI bleed, Hb close to baseline Continue to monitor Qualifiers: Anemia type: iron deficiency Iron deficiency anemia type: unspecified iron deficiency Qualified Code(s): D50.9 - Iron deficiency anemia, unspecified (6) Diabetes type 2, controlled Current Visit: No Status: Chronic Assessment and plan: Hold off on OHGA low dose sliding scale Qualifiers: Diabetes mellitus rodent exterminator insulin use: without usp use Diabetes mellitus complication status: without complication Qualified Code(s): E11.9 - Type 2 diabetes mellitus without complications (7) HTN (hypertension) Current Visit: No Status: Chronic Assessment and plan: Resume home meds once reconciled Qualifiers: Hypertension type: essential hypertension Qualified Code(s): I10 - Essential (primary) hypertension (8) DVT prophylaxis Current Visit: No Status: Acute Assessment and plan: Subcutaneous heparin - Time Spent With Patient Total time spent is greater than 50% in coordination of care (as documented) at patient's floor/unit and/or counseling patient: Greater than 35 minutes
[2019-03-04] MEDS: Insulin LISPRO 300 UNITS/3 ML VIAL SQ SCH ×3 (12:43→20:54)
[2019-03-04] MEDS: *HR* Heparin 5,000 UNIT/ML VIAL SQ SCH (17:17)
[2019-03-04] MEDS: MethylPREDNISolone 40 MG/ML VIAL IVP SCH (17:17)
[2019-03-05] MEDS: Azithromycin 500 MG in D5% in Water 250 ML IVPB SCH
[2019-03-05] MEDS: cefTRIAXone 1,000 MG in Water for inj. (sterile) 20 ML 10 ML IVP SCH
[2019-03-05] MEDS: Ipratropium/Albuterol Neb 3 ML IH SCH ×7 (00:34→23:43)
[2019-03-05] MEDS: *HR* Heparin 5,000 UNIT/ML VIAL SQ SCH (05:02)
[2019-03-05] MEDS: MethylPREDNISolone 40 MG/ML VIAL IVP SCH ×2 (05:02→17:44)
[2019-03-05 06:06] LABS: Basophils % 0.1 %; Hematocrit 25.6 % (37.5-50.1); Hemoglobin 7.5 g/dL (12.9-16.9); Immature Granulocytes % 0.4 % (0-4); Lymphocytes # 0.3 K/mcL (0.6-4.6); Lymphocytes % 3.6 %; Mean Corpuscular HGB Conc 29.3 g/dL (31.6-35.5); Mean Corpuscular Volume 85.3 fL (83.0-100.0); Monocytes # 0.4 K/mcL (0.0-1.3); Monocytes % 4.5 %; Neutrophils # 8.3 K/mcL (1.6-8.9); Platelet Count 390 K/mcL (140-400); Red Cell Distribution Width 14.6 % (11.5-14.5); Segmented Neutrophils % 91.4 %
[2019-03-05 06:25] LABS: BUN/Creatinine Ratio 32 (6-26); Blood Urea Nitrogen 30 mg/dL (8-23); Calcium 8.9 mg/dL (8.6-10.3); Carbon Dioxide 32 mEq/L (23-29); Chloride 99 mEq/L (98-107); Glucose 237 mg/dL (70-105); Magnesium 1.5 mg/dL (1.6-2.6); Osmolality,Calculated 304 (280-300); Sodium 140 mEq/L (136-145); eGFR For Non-African Americans > 60 (> 60)
[2019-03-05] MEDS: Insulin LISPRO 300 UNITS/3 ML VIAL SQ SCH ×4 (07:54→22:36)
[2019-03-05] MEDS ORDERED: Pantoprazole 40 MG VIAL IVP SCH (09:00)
[2019-03-05] MEDS: Diltiazem CD (24hr) 120 MG CAPSULE PO SCH (13:26)
--- NOTE | 2019-03-05 13:39 | Internal Med Progress Note ---
Hospitalist Progress Note - Encounter Date of Encounter: 03/05/19 Time of Encounter: 13:39 - Subjective Interval History: Patient is still complaining of shortness of breath and productive cough otherwise no acute event overnight. Review of the lab with trending down hemoglobin 7.5 yesterday 7.9. Low magnesium, high blood glucose level Denies fever chills nausea vomiting headache dizziness chest abdominal pain hematochezia melena or hematemesis - Exam Vitals: Temp Pulse Resp BP Pulse Ox 98.3 F 83 16 150/65 96 03/05/19 10:25 03/05/19 10:25 03/05/19 11:28 03/05/19 10:25 03/05/19 11:28 Exam: General: Alert and oriented, not in acute distress. HEENT:EOMI, pupils equal, round and reactive. Cardiovascular:Normal S1 & S2, No JVD. Pulse regular. Lungs: Diminished breath sounds bilaterally with scattered wheezes Abdomen:Soft, non-tender, no rigidity. Extremities:No deformity . +1 pedal edema Neurological: No focal neurological deficit Skin:Normal color, no rash, no lesions. - Assessment and Plan (1) Community acquired pneumonia Current Visit: Yes Status: Acute Assessment and Plan: Presented with acute on chronic dyspnea associated with leukocytosis and chest x-ray finding of bibasilar opacities started on IV Josesito/azithromycin, continue Blood culture obtained from the outside hospital on 03/04/2019-with no growth yet (2) Diabetes type 2, controlled Current Visit: No Status: Chronic Assessment and Plan: Hold off on OHGA Slight high blood glucose level. Hemoglobin A1c. Change medium sliding scale from low dose sliding scale. Diabetic diet (3) Acute exacerbation of chronic obstructive airways disease Current Visit: Yes Status: Acute Assessment and Plan: Continue IV Solu-Medrol, bronchodilators, and antibiotics as above (4) HTN (hypertension) Current Visit: No Status: Chronic Assessment and Plan: Started losartan today. Continue to monitor blood pressure. Will start amlodipine when appropriate. (5) Acute and chronic respiratory failure Current Visit: Yes Status: Acute Assessment and Plan: History of COPD on 2.5-3 L of oxygen currently on 3L with clinical findings consistent with continue acquired pneumonia Management as below, wean as tolerated (6) Anemia Current Visit: Yes Status: Chronic Assessment and Plan: History of chronic anemia with with low irone level noted on January 2019 EGD/colonoscopy on 12/2017 showed chronic gastritis and single non-bleeding angiodysplasia. It also showed 20mm polyps x 2 and diverticulosis no symptoms of active GI bleed, Slight decrease in hemoglobin since yesterday. Last hemoglobin 8.8 on February 08. Stool occult ordered and if negative will resume aspirin. Low magnesium-replacement and monitor. (7) CAD (coronary artery disease) Current Visit: No Status: Chronic Assessment and Plan: Left heart catheterization on 05/2018 showed mild nonobstructive CAD No signs and symptoms of angina with negative troponin resumed home meds (8) DVT prophylaxis Current Visit: No Status: Acute Assessment and Plan: Subcutaneous heparin - Time Spent with Patient Total time spent is greater than 50% in coordination of care (as documented) at patient's floor/unit and/or counseling patient: Internal Medicine: Result - Labs CBC & Chem 7: 03/05/19 04:23 03/05/19 04:23 Labs: Short CBC 03/05/19 Range/Units 04:23 WBC 9.1 (4.3-11.1) K/mcL Hgb 7.5 L (12.9-16.9) g/dL Hct 25.6 L (37.5-50.1) % Plt Count 390 (140-400) K/mcL Neutrophils # 8.3 (1.6-8.9) K/mcL BMP 03/05/19 04:23 Sodium 140 Potassium 4.0 Chloride 99 Carbon Dioxide 32 H BUN 30 H Creatinine 0.94 Glucose 237 H Calcium 8.9 Consult Discharge Plan - Plan Referrals: Fermín Akhtar MD [Primary Care Provider] - (1) Community acquired pneumonia Qualifiers: Laterality: unspecified laterality Qualified Code(s): J18.9 - Pneumonia, unspecified organism (2) Diabetes type 2, controlled Qualifiers: Diabetes mellitus termination clerk insulin use: without jail use Diabetes mellitus complication status: without complication Qualified Code(s): E11.9 - Type 2 diabetes mellitus without complications (4) HTN (hypertension) Qualifiers: Hypertension type: essential hypertension Qualified Code(s): I10 - Essential (primary) hypertension (5) Acute and chronic respiratory failure Qualifiers: Respiratory failure complication: hypoxia Qualified Code(s): J96.21 - Acute and chronic respiratory failure with hypoxia (6) Anemia Qualifiers: Anemia type: iron deficiency Iron deficiency anemia type: unspecified iron deficiency Qualified Code(s): D50.9 - Iron deficiency anemia, unspecified (7) CAD (coronary artery disease) Qualifiers: Coronary Disease-Associated Artery/Lesion type: [place] artery [place] vs. transplanted heart: [place] heart Associated angina: without angina Qualified Code(s): I25.10 - Atherosclerotic heart disease of [place] coronary artery without angina pectoris
[2019-03-05 18:50] LABS: Estimated Average Glucose 140 mg/dl; Hemoglobin A1C 6.5 %
[2019-03-05] MEDS: traZODone 50 MG TABLET PO SCH (22:36)
[2019-03-06] MEDS: cefTRIAXone 1,000 MG in Water for inj. (sterile) 20 ML 10 ML IVP SCH (01:08)
[2019-03-06] MEDS: Azithromycin 500 MG in D5% in Water 250 ML IVPB SCH (01:08)
[2019-03-06] MEDS: Ipratropium/Albuterol Neb 3 ML IH SCH ×5 (03:31→20:09)
[2019-03-06 06:27] LABS: Hematocrit 24.4 % (37.5-50.1); Hemoglobin 7.6 g/dL (12.9-16.9); Immature Granulocytes % 0.6 % (0-4); Lymphocytes # 0.4 K/mcL (0.6-4.6); Lymphocytes % 4.1 %; Mean Corpuscular HGB Conc 31.1 g/dL (31.6-35.5); Mean Corpuscular Hemoglobin 26.1 pg (28.0-33.3); Mean Corpuscular Volume 83.8 fL (83.0-100.0); Mean Platelet Volume 9.7 fL (9.4-12.4); Monocytes # 0.4 K/mcL (0.0-1.3); Monocytes % 4.8 %; Neutrophils # 7.9 K/mcL (1.6-8.9); Platelet Count 448 K/mcL (140-400); Red Blood Count 2.91 M/mcL (4.19-5.50); Red Cell Distribution Width 14.7 % (11.5-14.5); Segmented Neutrophils % 90.5 %
[2019-03-06] MEDS: MethylPREDNISolone 40 MG/ML VIAL IVP SCH (06:30)
[2019-03-06 06:46] LABS: BUN/Creatinine Ratio 35 (6-26); Blood Urea Nitrogen 26 mg/dL (8-23); Calcium 9.2 mg/dL (8.6-10.3); Carbon Dioxide 31 mEq/L (23-29); Chloride 99 mEq/L (98-107); Glucose 182 mg/dL (70-105); Magnesium 1.9 mg/dL (1.6-2.6); Osmolality,Calculated 295 (280-300); Potassium 4.1 mEq/L (3.5-5.1); Sodium 138 mEq/L (136-145); eGFR For Non-African Americans > 60 (> 60)
[2019-03-06] MEDS: Diltiazem CD (24hr) 120 MG CAPSULE PO SCH (07:14)
[2019-03-06] MEDS: Cyanocobalamin (B-12) 1,000 MCG TABLET PO SCH (07:14)
[2019-03-06] MEDS: Insulin LISPRO 300 UNITS/3 ML VIAL SQ SCH ×4 (07:51→20:59)
[2019-03-06] MEDS: Aspirin Enteric Coated 325 MG Tablet PO SCH (08:39)
[2019-03-06] MEDS: Torsemide 20 MG TABLET PO SCH (08:39)
[2019-03-06] MEDS ORDERED: Diltiazem CD (24hr) 120 MG CAPSULE PO SCH (09:00)
--- NOTE | 2019-03-06 15:23 | Internal Med Progress Note ---
Hospitalist Progress Note - Encounter Date of Encounter: 03/06/19 Time of Encounter: 15:19 - Subjective Interval History: Increased Productive cough with sputum yellowish-green in color otherwise that her shortness of breath. Review of the lab with a stable hemoglobin. Hemoccult negative. Denies fever or chills nausea vomiting headache dizziness chest pain abdominal pain diarrhea - Exam Vitals: Temp Pulse Resp BP Pulse Ox 97.8 F 69 16 136/55 99 03/06/19 13:58 03/06/19 13:58 03/06/19 13:58 03/06/19 13:58 03/06/19 13:58 Exam: General: Alert and oriented, not in acute distress. Oxygen by nasal cannula HEENT:EOMI, pupils equal, round and reactive. Cardiovascular:Normal S1 & S2, No JVD. Pulse regular. Lungs: Diminished breath sounds bilaterally with scattered wheezes Abdomen:Soft, non-tender, no rigidity. Extremities:No deformity . +1 pedal edema more on right leg Neurological: No focal neurological deficit Skin:Normal color, no rash, no lesions. - Assessment and Plan (1) Community acquired pneumonia Current Visit: Yes Status: Acute Assessment and Plan: Better clinically with normal white count with increased productive cough. Patient needs good pulmonary toileting therefore will keep patient on another day with continuation of spirometry, Mucomyst inhaler and and DuoNeb. The patient continued to improve then plan to discharge tomorrow on oral antibiotic Zithromax and Omnicef. Continue prednisone 40 mg daily Presented with acute on chronic dyspnea associated with leukocytosis and chest x-ray finding of bibasilar opacities started on IV Josesito/azithromycin, continue Blood culture obtained from the outside hospital on 03/04/2019-with no growth yet (2) Diabetes type 2, controlled Current Visit: No Status: Chronic Assessment and Plan: Hold off on OHGA Monitor blood glucose level. Hemoglobin A1c 6.5. Change medium sliding scale from low dose sliding scale. Diabetic diet (3) Acute exacerbation of chronic obstructive airways disease Current Visit: Yes Status: Acute Assessment and Plan: stopped IV Solu-Medrol. Continue bronchodilators, and antibiotics as above (4) HTN (hypertension) Current Visit: No Status: Chronic Assessment and Plan: Started losartan . Continue to monitor blood pressure. Will start amlodipine when appropriate. (5) Acute and chronic respiratory failure Current Visit: Yes Status: Acute Assessment and Plan: History of COPD on 2.5-3 L of oxygen currently on 3L with clinical findings consistent with community acquired pneumonia Management as below, wean as tolerated (6) Anemia Current Visit: Yes Status: Chronic Assessment and Plan: History of chronic anemia with with low irone level noted on January 2019 EGD/colonoscopy on 12/2017 showed chronic gastritis and single non-bleeding angiodysplasia. It also showed 20mm polyps x 2 and diverticulosis no symptoms of active GI bleed, Stable hemoglobin 7.6. Last hemoglobin 8.8 on February 08. Stool occult negative. Continue aspirin. Patient has appointment with lime plant operator for further workup this week. Low normal magnesium-replacement and monitor. (7) CAD (coronary artery disease) Current Visit: No Status: Chronic Assessment and Plan: Left heart catheterization on 05/2018 showed mild nonobstructive CAD No signs and symptoms of angina with negative troponin resumed home meds (8) DVT prophylaxis Current Visit: No Status: Acute Assessment and Plan: Subcutaneous heparin - Time Spent with Patient Total time spent is greater than 50% in coordination of care (as documented) at patient's floor/unit and/or counseling patient: 25 - 35 minutes Plan of Care Discussed with: patient Internal Medicine: Result - Labs CBC & Chem 7: 03/06/19 05:29 03/06/19 05:29 Labs: Short CBC 03/06/19 Range/Units 05:29 WBC 8.8 (4.3-11.1) K/mcL Hgb 7.6 L (12.9-16.9) g/dL Hct 24.4 L (37.5-50.1) % Plt Count 448 H (140-400) K/mcL Neutrophils # 7.9 (1.6-8.9) K/mcL BMP 03/06/19 05:29 Sodium 138 Potassium 4.1 Chloride 99 Carbon Dioxide 31 H BUN 26 H Creatinine 0.75 Glucose 182 H Calcium 9.2 - Impressions Impressions Chest X-Ray 03/06/19 07:48 IMPRESSION: Patchy opacification in the mid to lower lungs bilaterally, left greater than right. This is minimally improved from the prior exam. D/ / Andrzej Brand MD / Andrzej Brand MD Interpreting Provider: Andrzej Brand MD Consult Discharge Plan - Plan Referrals: Fermín Akhtar MD [Primary Care Provider] - (1) Community acquired pneumonia Qualifiers: Laterality: unspecified laterality Qualified Code(s): J18.9 - Pneumonia, unspecified organism (2) Diabetes type 2, controlled Qualifiers: Diabetes mellitus longwall foreman insulin use: without longwall foreman use Diabetes mellitus complication status: without complication Qualified Code(s): E11.9 - Type 2 diabetes mellitus without complications (4) HTN (hypertension) Qualifiers: Hypertension type: essential hypertension Qualified Code(s): I10 - Essential (primary) hypertension (5) Acute and chronic respiratory failure Qualifiers: Respiratory failure complication: hypoxia Qualified Code(s): J96.21 - Acute and chronic respiratory failure with hypoxia (6) Anemia Qualifiers: Anemia type: iron deficiency Iron deficiency anemia type: unspecified iron deficiency Qualified Code(s): D50.9 - Iron deficiency anemia, unspecified (7) CAD (coronary artery disease) Qualifiers: Coronary Disease-Associated Artery/Lesion type: [place] artery [place] vs. transplanted heart: [place] heart Associated angina: without angina Qualified Code(s): I25.10 - Atherosclerotic heart disease of [place] coronary artery without angina pectoris
[2019-03-06] MEDS: predniSONE 20 MG TABLET PO SCH (16:36)
[2019-03-06] MEDS: Acetylcysteine 10% 2 ML INHSOL IH SCH (20:08)
[2019-03-06] MEDS: traZODone 50 MG TABLET PO SCH (20:59)
[2019-03-07] MEDS: cefTRIAXone 1,000 MG in Water for inj. (sterile) 20 ML 10 ML IVP SCH (00:44)
[2019-03-07] MEDS: Acetylcysteine 10% 2 ML INHSOL IH SCH ×3 (00:45→15:43)
[2019-03-07] MEDS: Ipratropium/Albuterol Neb 3 ML IH SCH ×6 (00:45→20:31)
[2019-03-07 04:10] LABS: Hematocrit 23.5 % (37.5-50.1); Hemoglobin 7.1 g/dL (12.9-16.9); Immature Granulocytes % 1.4 % (0-4); Lymphocytes # 0.4 K/mcL (0.6-4.6); Lymphocytes % 5.5 %; Mean Corpuscular HGB Conc 30.2 g/dL (31.6-35.5); Mean Corpuscular Hemoglobin 25.4 pg (28.0-33.3); Mean Corpuscular Volume 84.2 fL (83.0-100.0); Mean Platelet Volume 9.4 fL (9.4-12.4); Monocytes # 0.4 K/mcL (0.0-1.3); Monocytes % 6.3 %; Platelet Count 423 K/mcL (140-400); Red Blood Count 2.79 M/mcL (4.19-5.50); Red Cell Distribution Width 14.6 % (11.5-14.5); Segmented Neutrophils % 86.8 %
[2019-03-07 04:26] LABS: BUN/Creatinine Ratio 34 (6-26); Blood Urea Nitrogen 29 mg/dL (8-23); Calcium 8.4 mg/dL (8.6-10.3); Carbon Dioxide 33 mEq/L (23-29); Chloride 102 mEq/L (98-107); Glucose 225 mg/dL (70-105); Osmolality,Calculated 303 (280-300); Potassium 4.3 mEq/L (3.5-5.1); Sodium 140 mEq/L (136-145); eGFR For Non-African Americans > 60 (> 60)
[2019-03-07] MEDS: Azithromycin 250 MG TABLET PO SCH (08:22)
[2019-03-07] MEDS: Torsemide 20 MG TABLET PO SCH (08:23)
[2019-03-07] MEDS: predniSONE 20 MG TABLET PO SCH (08:23)
[2019-03-07] MEDS: Aspirin Enteric Coated 325 MG Tablet PO SCH (08:23)
[2019-03-07] MEDS: Insulin LISPRO 300 UNITS/3 ML VIAL SQ SCH ×4 (08:24→20:26)
[2019-03-07] MEDS: Cyanocobalamin (B-12) 1,000 MCG TABLET PO SCH (08:24)
[2019-03-07] MEDS: Diltiazem CD (24hr) 120 MG CAPSULE PO SCH (08:24)
[2019-03-07] MEDS ORDERED: Iron Sucrose Complex 400 MG in 0.9 % Sodium Chloride 250 ML IVPB ONE (08:50)
[2019-03-07] MEDS ORDERED: predniSONE 20 MG TABLET PO SCH (09:00)
[2019-03-07 09:16] LABS: % Iron Saturation 5 % (20-55); Iron 17 mcg/dL (65-175); Transferrin 245 mg/dL (203-362)
[2019-03-07 09:33] LABS: Ferritin 22 ng/mL (20-250)
--- NOTE | 2019-03-07 10:10 | Internal Med Progress Note ---
Hospitalist Progress Note - Encounter Date of Encounter: 03/07/19 Time of Encounter: 10:25 - Subjective Interval History: Patient is still having lots of productive a sputum. Is stable dyspnea on exertion but feeling better. Review of the lab with trending down hemoglobin but denies melena or hematochezia or hematemesis. Stool occult negative. Denies fever chills nausea vomiting chest pain abdominal pain diarrhea - Exam Vitals: Temp Pulse Resp BP Pulse Ox 98.0 F 69 19 149/66 99 03/07/19 06:32 03/07/19 08:16 03/07/19 08:16 03/07/19 08:16 03/07/19 08:16 Exam: General: Alert and oriented, not in acute distress. Oxygen by nasal cannula HEENT:EOMI, pupils equal, round and reactive. Cardiovascular:Normal S1 & S2, No JVD. Pulse regular. Lungs: Diminished breath sounds bilaterally with scattered wheezes more on left side Abdomen:Soft, non-tender, no rigidity. Extremities:No deformity . +1 pedal edema more on right leg Neurological: No focal neurological deficit Skin:Normal color, no rash, no lesions. - Assessment and Plan (1) Anemia Current Visit: Yes Status: Chronic Assessment and Plan: History of chronic anemia with with low irone level noted on January 2019 EGD/colonoscopy on 12/2017 showed chronic gastritis and single non-bleeding an giodysplasia. It also showed 20mm polyps x 2 and diverticulosis no symptoms of active GI bleed, Hemoglobin trending down 7.1 now. I talked to his residential appraiser Dr. Chris to home he supposed to see today at his office for chronic anemia -he advise for IV Venofer 400 mg today and blood transfusion 1-2 unit. Stool occult negative. Plan to discharge patient possibly tomorrow Low normal magnesium-replacement and monitor. (2) Community acquired pneumonia Current Visit: Yes Status: Acute Assessment and Plan: Better clinically with normal white count with increased productive cough. Patient needs good pulmonary toileting therefore will keep patient on another day with continuation of spirometry, Mucomyst inhaler and and DuoNeb. T if he patient continued to improve then plan to discharge tomorrow on oral antibiotic Zithromax and Omnicef. Continue prednisone 40 mg daily with tapering Presented with acute on chronic dyspnea associated with leukocytosis and chest x-ray finding of bibasilar opacities started on IV Josesito/azithromycin, continue Blood culture obtained from the outside hospital on 03/04/2019-with no growth yet (3) Diabetes type 2, controlled Current Visit: No Status: Chronic Assessment and Plan: Hold off on OHGA Monitor blood glucose level. Hemoglobin A1c 6.5. Change medium sliding scale from low dose sliding scale. Diabetic diet (4) Acute exacerbation of chronic obstructive airways disease Current Visit: Yes Status: Acute Assessment and Plan: stopped IV Solu-Medrol. Continue bronchodilators, and antibiotics as above (5) HTN (hypertension) Current Visit: No Status: Chronic Assessment and Plan: Started losartan . Continue to monitor blood pressure. Will restart amlodipine today as well (6) Acute and chronic respiratory failure Current Visit: Yes Status: Acute Assessment and Plan: History of COPD on 2.5-3 L of oxygen currently on 3L with clinical findings consistent with community acquired pneumonia Management as below, wean as tolerated (7) CAD (coronary artery disease) Current Visit: No Status: Chronic Assessment and Plan: Left heart catheterization on 05/2018 showed mild nonobstructive CAD No signs and symptoms of angina with negative troponin resumed home meds (8) DVT prophylaxis Current Visit: No Status: Acute Assessment and Plan: SCDs - Time Spent with Patient Total time spent is greater than 50% in coordination of care (as documented) at patient's floor/unit and/or counseling patient: 25 - 35 minutes Plan of Care Discussed with: patient Internal Medicine: Result - Labs CBC & Chem 7: 03/07/19 03:54 03/07/19 03:54 Labs: Short CBC 03/07/19 Range/Units 03:54 WBC 6.9 (4.3-11.1) K/mcL Hgb 7.1 L (12.9-16.9) g/dL Hct 23.5 L (37.5-50.1) % Plt Count 423 H (140-400) K/mcL Neutrophils # 6.0 (1.6-8.9) K/mcL BMP 03/07/19 03:54 Sodium 140 Potassium 4.3 Chloride 102 Carbon Dioxide 33 H BUN 29 H Creatinine 0.86 Glucose 225 H Calcium 8.4 L Consult Discharge Plan - Plan Referrals: Fermín Akhtar MD [Primary Care Provider] - (1) Anemia Qualifiers: Anemia type: iron deficiency Iron deficiency anemia type: unspecified iron deficiency Qualified Code(s): D50.9 - Iron deficiency anemia, unspecified (2) Community acquired pneumonia Qualifiers: Laterality: unspecified laterality Qualified Code(s): J18.9 - Pneumonia, unspecified organism (3) Diabetes type 2, controlled Qualifiers: Diabetes mellitus termite control service representative insulin use: without care home use Diabetes mellitus complication status: without complication Qualified Code(s): E11.9 - Type 2 diabetes mellitus without complications (5) HTN (hypertension) Qualifiers: Hypertension type: essential hypertension Qualified Code(s): I10 - Essential (primary) hypertension (6) Acute and chronic respiratory failure Qualifiers: Respiratory failure complication: hypoxia Qualified Code(s): J96.21 - Acute and chronic respiratory failure with hypoxia (7) CAD (coronary artery disease) Qualifiers: Coronary Disease-Associated Artery/Lesion type: [place] artery [place] vs. transplanted heart: [place] heart Associated angina: without angina Qualified Code(s): I25.10 - Atherosclerotic heart disease of [place] coronary artery without angina pectoris
[2019-03-07 10:48] LABS: Folate 6.2 ng/mL (3.0-16.0)
[2019-03-07 10:50] LABS: Vitamin B12 > 1500 pg/mL (250-1100)
[2019-03-07] MEDS ORDERED: 0.9 % Sodium Chloride 250 ML ONE (11:31)
[2019-03-07 17:29] LABS: Hematocrit 31.6 % (37.5-50.1)
[2019-03-07 17:30] LABS: Hemoglobin 9.5 g/dL (12.9-16.9)
[2019-03-07] MEDS: traZODone 50 MG TABLET PO SCH (20:25)
[2019-03-07] MEDS: Budesonide/Formoterol 160/4.5 1 PUFF INH IH SCH (20:30)
[2019-03-08] MEDS: Ipratropium/Albuterol Neb 3 ML IH SCH ×7 (00:38→23:23)
[2019-03-08] MEDS: Acetylcysteine 10% 2 ML INHSOL IH SCH ×4 (00:38→23:23)
[2019-03-08] MEDS: cefTRIAXone 1,000 MG in Water for inj. (sterile) 20 ML 10 ML IVP SCH (00:43)
[2019-03-08 06:06] LABS: Basophils % 0.2 %; Hematocrit 27.6 % (37.5-50.1); Hemoglobin 8.3 g/dL (12.9-16.9); Lymphocytes # 0.8 K/mcL (0.6-4.6); Lymphocytes % 12.6 %; Mean Corpuscular HGB Conc 30.1 g/dL (31.6-35.5); Mean Corpuscular Hemoglobin 25.8 pg (28.0-33.3); Mean Corpuscular Volume 85.7 fL (83.0-100.0); Mean Platelet Volume 9.8 fL (9.4-12.4); Monocytes # 0.8 K/mcL (0.0-1.3); Monocytes % 12.7 %; Neutrophils # 4.7 K/mcL (1.6-8.9); Platelet Count 418 K/mcL (140-400); Red Blood Count 3.22 M/mcL (4.19-5.50); Red Cell Distribution Width 14.8 % (11.5-14.5); Segmented Neutrophils % 72.5 %
[2019-03-08 06:28] LABS: BUN/Creatinine Ratio 28 (6-26); Blood Urea Nitrogen 23 mg/dL (8-23); Calcium 8.8 mg/dL (8.6-10.3); Carbon Dioxide 32 mEq/L (23-29); Chloride 102 mEq/L (98-107); Glucose 134 mg/dL (70-105); Osmolality,Calculated 296 (280-300); Potassium 4.1 mEq/L (3.5-5.1); Sodium 140 mEq/L (136-145); eGFR For Non-African Americans > 60 (> 60)
[2019-03-08] MEDS: Budesonide/Formoterol 160/4.5 1 PUFF INH IH SCH ×2 (07:28→19:55)
[2019-03-08] MEDS: Torsemide 20 MG TABLET PO SCH (08:37)
[2019-03-08] MEDS: Diltiazem CD (24hr) 120 MG CAPSULE PO SCH (08:37)
[2019-03-08] MEDS: Aspirin Enteric Coated 325 MG Tablet PO SCH (08:38)
[2019-03-08] MEDS: Cyanocobalamin (B-12) 1,000 MCG TABLET PO SCH (08:38)
[2019-03-08] MEDS: Azithromycin 250 MG TABLET PO SCH (08:38)
[2019-03-08] MEDS: amLODIPine 5 MG TABLET PO SCH (08:38)
[2019-03-08] MEDS: predniSONE 20 MG TABLET PO SCH (08:38)
[2019-03-08] MEDS: Insulin LISPRO 300 UNITS/3 ML VIAL SQ SCH ×3 (08:39→16:31)
--- NOTE | 2019-03-08 10:56 | Discharge Summary ---
- NOTES TO OUTPATIENT PROVIDER Notes to Outpatient Provider: Follow with PCP into 3-4 days-follow final blood culture report. Continue spirometry and DuoNeb treatment at home-educated the patient. Keep appointment with senior software engineering manager for his anemia workup next week Orders not resulted at time of discharge: Pending orders 03/05/19 17:36 Bedside Spirometry Evaluation [EVAL] Routine Date of Encounter: 03/09/19 Time of Encounter: 10:32 - Discharge Diagnosis (1) Community acquired pneumonia Priority: Primary Status: Acute Assessment and Plan: Better clinically with normal white count . Patient is still has productive cough but getting better with good pulmonary toileting. As patient is clinically improving therefore decided to discharge with instruction to continue a spirometry, DuoNeb every 6 hours schedule along with antibiotic treatment. Will discharge patient on Zithromax 500 mg daily for 1 more days total 5 days and Omnicef 300 mg by mouth twice a day for 6 more days and tapering his steroid prednisone 40 mg by mouth daily for 1 more days then 20 mg by mouth daily for 5 days. with increased productive cough. Patient needs good pulmonary toileting therefore will keep patient on another day with continuation of spirometry, Mucomyst inhaler and and DuoNeb. T if he patient continued to improve then plan to discharge tomorrow on oral antibiotic Zithromax and Omnicef. Continue prednisone 40 mg daily with tapering Blood culture obtained from the outside hospital on 03/04/2019-with no growth yet-final blood culture report to be followed by PCP Qualifiers: Laterality: unspecified laterality Qualified Code(s): J18.9 - Pneumonia, unspecified organism (2) Anemia Priority: Primary Status: Chronic Assessment and Plan: History of chronic anemia with with low irone level noted on January 2019 EGD/colonoscopy on 12/2017 showed chronic gastritis and single non-bleeding angiodysplasia. It also showed 20mm polyps x 2 and diverticulosis no symptoms of active GI bleed, Hemoglobin trending down 7.1 . I talked to his senior software engineering manager Dr. Chris to home he supposed to see today at his office for chronic anemia -he advise for IV Venofer 400 mg and blood transfusion. Stool occult negative 2 unit PRC given. Patient needs to follow with senior software engineering manager on OPD basis. Qualifiers: Anemia type: iron deficiency Iron deficiency anemia type: unspecified iron deficiency Qualified Code(s): D50.9 - Iron deficiency anemia, unspecified (3) Diabetes type 2, controlled Priority: Secondary Status: Chronic Assessment and Plan: Continue home medicine. Hemoglobin A1c 6.5. Diabetic diet Qualifiers: Diabetes mellitus intermediate card tender insulin use: without intermediate card tender use Diabetes mellitus complication status: without complication Qualified Code(s): E11.9 - Type 2 diabetes mellitus without complications (4) Acute exacerbation of chronic obstructive airways disease Priority: Primary Status: Acute Assessment and Plan: stopped IV Solu-Medrol. Will discharge patient on tapering his steroid and continue bronchodilator (5) HTN (hypertension) Priority: Primary Status: Chronic Assessment and Plan: Continue home medicine. Qualifiers: Hypertension type: essential hypertension Qualified Code(s): I10 - Essential (primary) hypertension (6) Acute and chronic respiratory failure Priority: Primary Status: Acute Assessment and Plan: History of COPD on 2.5-3 L of oxygen currently on 2-3L oxygen by nasal cannula Qualifiers: Respiratory failure complication: hypoxia Qualified Code(s): J96.21 - Acute and chronic respiratory failure with hypoxia (7) CAD (coronary artery disease) Priority: Secondary Status: Chronic Assessment and Plan: Left heart catheterization on 05/2018 showed mild nonobstructive CAD No signs and symptoms of angina with negative troponin resumed home meds Qualifiers: Coronary Disease-Associated Artery/Lesion type: [place] artery [place] vs. transplanted heart: [place] heart Associated angina: without angina Qualified Code(s): I25.10 - Atherosclerotic heart disease of [place] coronary artery without angina pectoris Hospital course: Mr. Stephen is a 83 year old male patient got admitted for acute respiratory failure and got treated for pneumonia and COPD exacerbation. IV antibiotic DuoNeb oxygen supplementation started. Patient was also found anemia with t rending down hemoglobin with no active bleeding. Please see details in diagnosis section of discharge summary At the time of discharge patient is hemodynamically stable ambulating tolerating oral diet and feel like back to baseline. He is also back to baseline oxygen requirement. Discharge discussed with: patient, nurse, social work - Time Spent with Patient Total time spent providing and/or coordinating discharge services: Time spent: Less than 30 minutes - Discharge Medications Prescriptions: New Cefdinir [Omnicef] 300 mg PO BID #12 capsule predniSONE [PredniSONE] 40 mg PO DAILY #7 tablet Azithromycin [Zithromax] 500 mg PO DAILY #1 tablet Continued Budesonide/Formoterol 160/4.5 [Symbicort 160/4.5] 2 puff IH BID Diltiazem CD (24hr) [Cardizem CD] 120 mg PO DAILY #30 cap.er.24h Pravastatin Sodium [Pravachol] 20 mg PO DAILY Omeprazole [PriLOSEC] 40 mg PO BID #56 cap Cyanocobalamin (Vitamin B-12) [Vitamin B-12] 1,000 mcg PO DAILY traZODone [TraZODone] 100 mg PO HS Tiotropium [place] [Spiriva Respimat] 2 puff IH DAILY Ipratropium/Albuterol Sulfate [Iprat-Albut 0.5-3(2.5) mg/3 ml] 3 ml IH Q6H PRN PRN Reason: Shortness Of Breath amLODIPine [Norvasc] 10 mg PO DAILY Losartan Potassium [Cozaar] 100 mg PO DAILY metFORMIN [Glucophage] 850 mg PO BIDWM Torsemide 5 mg PO DAILY Aspirin [Ecotrin] 325 mg PO DAILY Albuterol Sulfate [Albuterol Inhaler] 2 puff IH Q4HR PRN #1 hfa.aer.ad PRN Reason: Shortness Of Breath/Wheezing Home Medications: Losartan Potassium [Cozaar] 100 mg PO DAILY 11/06/17 [History] Torsemide 5 mg PO DAILY 11/06/17 [History] amLODIPine [Norvasc] 10 mg PO DAILY 11/06/17 [History] metFORMIN [Glucophage] 850 mg PO BIDWM 11/06/17 [History] Budesonide/Formoterol 160/4.5 [Symbicort 160/4.5] 2 puff IH BID 11/27/17 [History] Diltiazem CD (24hr) [Cardizem CD] 120 mg PO DAILY #30 cap.er.24h 12/05/17 [Rx] Pravastatin Sodium [Pravachol] 20 mg PO DAILY 01/21/18 [History] Omeprazole [PriLOSEC] 40 mg PO BID #56 cap 01/25/18 [Rx] Cyanocobalamin (Vitamin B-12) [Vitamin B-12] 1,000 mcg PO DAILY 06/26/18 [History] Albuterol Sulfate [Albuterol Inhaler] 2 puff IH Q4HR PRN #1 hfa.aer.ad 10/08/18 [Rx] Aspirin [Ecotrin] 325 mg PO DAILY 10/08/18 [History] Ipratropium/Albuterol Sulfate [Iprat-Albut 0.5-3(2.5) mg/3 ml] 3 ml IH Q6H PRN 03/05/19 [History] Tiotropium [place] [Spiriva Respimat] 2 puff IH DAILY 03/05/19 [History] traZODone [TraZODone] 100 mg PO HS 03/05/19 [History] Azithromycin [Zithromax] 500 mg PO DAILY #1 tablet 03/08/19 [Rx] Cefdinir [Omnicef] 300 mg PO BID #12 capsule 03/08/19 [Rx] predniSONE [PredniSONE] 40 mg PO DAILY #7 tablet 03/08/19 [Rx] Allergies/Adverse Reactions: Allergy/AdvReac Type Severity Reaction Status Date / Time No Known Allergies Allergy Verified 03/04/19 01:10 Date of admission: 03/04/19 09:54 Primary care physician: Fermín Akhtar MD Consults: 03/05/19 08:40 Consult to Nurse Navigator [CONS] Routine Comment: pneumonia - Constitutional Vitals: Temp Pulse Resp BP Pulse Ox 98.0 F 61 16 165/63 97 03/08/19 07:58 03/08/19 07:58 03/08/19 07:58 03/08/19 07:58 03/08/19 07:58 Exam: General: Alert and oriented, not in acute distress. Oxygen by nasal cannula HEENT:EOMI, pupils equal, round and reactive. Cardiovascular:Normal S1 & S2, No JVD. Pulse regular. Lungs: normal breath sound on the right side but still diminished left side- improving Abdomen:Soft, non-tender, no rigidity. Positive bowel sounds Extremities:No deformity . +1 pedal edema more on right leg Neurological: No focal neurological deficit Skin:Normal color, no rash, no lesions. - Patient Status Disposition: Home, Self-Care Condition: Fair Overall status at discharge: patient is progressing back to baseline - Discharge Instructions Follow Up With: Fermín Akhtar MD [Primary Care Provider] - - Diet and Activity Diet: advance to your usual diet
[2019-03-08] MEDS ORDERED: 0.9 % Sodium Chloride 250 ML ONE (11:55)
--- NOTE | 2019-03-08 16:44 | Internal Med Progress Note ---
Hospitalist Progress Note - Encounter Date of Encounter: 03/08/19 Time of Encounter: 16:43 - Subjective Interval History: Still having productive a sputum but better feeling. Hemoglobin again trending down from 9.5-8.3 but no active bleeding. Denies fever chills nausea vomiting headache dizziness chest pain new shortness of breath abdominal pain diarrhea - Exam Vitals: Temp Pulse Resp BP Pulse Ox 98.7 F 69 18 144/67 94 03/08/19 16:11 03/08/19 16:11 03/08/19 16:11 03/08/19 16:11 03/08/19 16:37 Exam: General: Alert and oriented, not in acute distress. Oxygen by nasal cannula HEENT:EOMI, pupils equal, round and reactive. Cardiovascular:Normal S1 & S2, No JVD. Pulse regular. Lungs: normal breath sound on the right side but still diminished left side-imp roving Abdomen:Soft, non-tender, no rigidity. Positive bowel sounds Extremities:No deformity . +1 pedal edema more on right leg Neurological: No focal neurological deficit Skin:Normal color, no rash, no lesions. - Assessment and Plan (1) Community acquired pneumonia Current Visit: Yes Status: Acute Assessment and Plan: Better clinically with normal white count . Patient is still has productive cough but getting better with good pulmonary toileting. As patient is clinically improving therefore decided to discharge with instruction to continue a spirometry, DuoNeb every 6 hours schedule along with antibiotic treatment. Will discharge patient on Zithromax 500 mg daily for 1 more days total 5 days and Omnicef 300 mg by mouth twice a day for 6 more days and tapering his steroid prednisone 40 mg by mouth daily for 1 more days then 20 mg by mouth daily for 5 days. with increased productive cough. Patient needs good pulmonary toileting therefore will keep patient on another day with continuation of spirometry, Mucomyst inhaler and and DuoNeb. T if he patient continued to improve then plan to discharge tomorrow on oral antibiotic Zithromax and Omnicef. Continue prednisone 40 mg daily with tapering Blood culture obtained from the outside hospital on 03/04/2019-with no growth yet-final blood culture report to be followed by PCP There was planned to transfuse 1 more unit of blood after discussing with his newspaper carrier in discharge patient later today but patient wanted to stay overnight and not having anybody to take care of him home tonight but okay to go home today therefore held the discharge. (2) Anemia Current Visit: Yes Status: Chronic Assessment and Plan: History of chronic anemia with with low irone level noted on January 2019 EGD/colonoscopy on 12/2017 showed chronic gastritis and single non-bleeding angiodysplasia. It also showed 20mm polyps x 2 and diverticulosis no symptoms of active GI bleed, Hemoglobin trending down 7.1 . I talked to his newspaper carrier Dr. Chris to home he supposed to see today at his office for chronic anemia -he advise for IV Venofer 400 mg and blood transfusion. Stool occult negative 2 unit PRC given after discussing with newspaper carrier Dr. Chris for also recommended and also patient had history of CAD. Patient needs to follow with newspaper carrier on OPD basis. (3) Diabetes type 2, controlled Current Visit: No Status: Chronic Assessment and Plan: Continue home medicine. Hemoglobin A1c 6.5. Diabetic diet (4) Acute exacerbation of chronic obstructive airways disease Current Visit: Yes Status: Acute Assessment and Plan: stopped IV Solu-Medrol. Will discharge patient on tapering his steroid and continue bronchodilator (5) HTN (hypertension) Current Visit: No Status: Chronic Assessment and Plan: Continue home medicine. (6) Acute and chronic respiratory failure Current Visit: Yes Status: Acute Assessment and Plan: History of COPD on 2.5-3 L of oxygen currently on 2-3L oxygen by nasal cannula (7) CAD (coronary artery disease) Current Visit: No Status: Chronic Assessment and Plan: Left heart catheterization on 05/2018 showed mild nonobstructive CAD No signs and symptoms of angina with negative troponin resumed home meds - Time Spent with Patient Total time spent is greater than 50% in coordination of care (as documented) at patient's floor/unit and/or counseling patient: 25 - 35 minutes Internal Medicine: Result - Labs CBC & Chem 7: 03/08/19 05:10 03/08/19 05:10 Labs: Short CBC 03/07/19 03/08/19 Range/Units 17:13 05:10 WBC 6.5 (4.3-11.1) K/mcL Hgb 9.5 L D 8.3 L (12.9-16.9) g/dL Hct 31.6 L 27.6 L (37.5-50.1) % Plt Count 418 H (140-400) K/mcL Neutrophils # 4.7 (1.6-8.9) K/mcL BMP 03/08/19 05:10 Sodium 140 Potassium 4.1 Chloride 102 Carbon Dioxide 32 H BUN 23 Creatinine 0.82 Glucose 134 H Calcium 8.8 Consult Discharge Plan - Plan Referrals: Fermín Akhtar MD [Primary Care Provider] - Prescriptions: Cefdinir [Omnicef] 300 mg PO BID #12 capsule predniSONE [PredniSONE] 40 mg PO DAILY #7 tablet Azithromycin [Zithromax] 500 mg PO DAILY #1 tablet (1) Community acquired pneumonia Qualifiers: Laterality: unspecified laterality Qualified Code(s): J18.9 - Pneumonia, unspecified organism (2) Anemia Qualifiers: Anemia type: iron deficiency Iron deficiency anemia type: unspecified iron deficiency Qualified Code(s): D50.9 - Iron deficiency anemia, unspecified (3) Diabetes type 2, controlled Qualifiers: Diabetes mellitus manager terminal insulin use: without penitentiary use Diabetes mellitus complication status: without complication Qualified Code(s): E11.9 - Type 2 diabetes mellitus without complications (5) HTN (hypertension) Qualifiers: Hypertension type: essential hypertension Qualified Code(s): I10 - Essential (primary) hypertension (6) Acute and chronic respiratory failure Qualifiers: Respiratory failure complication: hypoxia Qualified Code(s): J96.21 - Acute and chronic respiratory failure with hypoxia (7) CAD (coronary artery disease) Qualifiers: Coronary Disease-Associated Artery/Lesion type: [place] artery [place] vs. transplanted heart: [place] heart Associated angina: without angina Qualified Code(s): I25.10 - Atherosclerotic heart disease of [place] coronary artery without angina pectoris
[2019-03-08] MEDS: *HR* Heparin 5,000 UNIT/ML VIAL SQ SCH (17:12)
[2019-03-08] MEDS: Cefdinir 300 MG CAPSULE PO SCH (21:20)
[2019-03-08] MEDS: traZODone 50 MG TABLET PO SCH (21:20)
[2019-03-09] MEDS: Ipratropium/Albuterol Neb 3 ML IH SCH ×3 (03:33→11:03)
[2019-03-09] MEDS: Insulin LISPRO 300 UNITS/3 ML VIAL SQ SCH ×3 (04:35→11:39)
[2019-03-09] MEDS: *HR* Heparin 5,000 UNIT/ML VIAL SQ SCH (06:01)
[2019-03-09 06:57] VITALS: BP 161/73
[2019-03-09] MEDS: Budesonide/Formoterol 160/4.5 1 PUFF INH IH SCH (07:13)
[2019-03-09] MEDS: Acetylcysteine 10% 2 ML INHSOL IH SCH (07:13)
[2019-03-09 08:25] LABS: Basophils % 0.5 %; Eosinophils % 0.3 %; Hematocrit 32.9 % (37.5-50.1); Immature Granulocytes % 3.3 % (0-4); Lymphocytes # 1.3 K/mcL (0.6-4.6); Lymphocytes % 17.6 %; Mean Corpuscular Hemoglobin 26.4 pg (28.0-33.3); Mean Corpuscular Volume 85.2 fL (83.0-100.0); Mean Platelet Volume 9.7 fL (9.4-12.4); Monocytes # 0.9 K/mcL (0.0-1.3); Monocytes % 12.2 %; Neutrophils # 4.8 K/mcL (1.6-8.9); Platelet Count 441 K/mcL (140-400); Red Blood Count 3.86 M/mcL (4.19-5.50); Red Cell Distribution Width 15.1 % (11.5-14.5); Segmented Neutrophils % 66.1 %
[2019-03-09 08:26] LABS: Hemoglobin 10.2 g/dL (12.9-16.9)
[2019-03-09] MEDS: Azithromycin 250 MG TABLET PO SCH (08:58)
[2019-03-09] MEDS: Aspirin Enteric Coated 325 MG Tablet PO SCH (08:58)
[2019-03-09] MEDS: predniSONE 20 MG TABLET PO SCH (08:58)
[2019-03-09] MEDS: amLODIPine 5 MG TABLET PO SCH (08:58)
[2019-03-09] MEDS: Cefdinir 300 MG CAPSULE PO SCH (08:58)
[2019-03-09] MEDS: Torsemide 20 MG TABLET PO SCH (08:59)
[2019-03-09] MEDS: Cyanocobalamin (B-12) 1,000 MCG TABLET PO SCH (08:59)
[2019-03-09] MEDS: Diltiazem CD (24hr) 120 MG CAPSULE PO SCH (08:59)
== END 2019-03-09 11:45 | disposition home or self-care (01) | DRG 193 ==
LOC: 3ANU → SUATTDRO 09:38
PROVIDERS: ADMIT Family Medicine; ATTEND Internal Medicine

== ENCOUNTER 2019-09-03 07:59 | Inpatient (IN) ==
[2019-09-03] MEDS ORDERED: *HR* HYDROcodone/Acet 5/325 mg TABLET PO PRN (14:59)
[2019-09-03] MEDS ORDERED: Naloxone 0.4 MG/ML INJ IVP PRN (14:59)
[2019-09-03] MEDS ORDERED: *HR* Promethazine 25 MG/ML VIAL IVP PRN (14:59)
[2019-09-03] MEDS ORDERED: *HR* Dextrose 50 % in Water (Syg) 50 ML SYRINGE IVP PRN (15:02)
[2019-09-03] MEDS ORDERED: D5% in Water 1,000 ML IVC PRN (15:02)
[2019-09-03] MEDS ORDERED: Dextrose Gel 15 GM/37.5 ML TUBE PO PRN ×2 (15:02)
[2019-09-03] MEDS ORDERED: 0.9 % Sodium Chloride 250 ML IVC SCH (15:15)
[2019-09-03] MEDS ORDERED: cefTRIAXone 1,000 MG in Water for inj. (sterile) 10 ML IVP SCH (15:34)
[2019-09-03] MEDS ORDERED: Azithromycin 500 MG in 0.9 % Sodium Chloride 250 ML IVPB SCH (16:00)
[2019-09-03 16:16] LABS: Basophils % 0.2 %; Hematocrit 22.5 % (37.5-50.1); Hemoglobin 6.8 g/dL (12.9-16.9); Immature Granulocytes % 0.6 % (0-4); Lymphocytes # 0.2 K/mcL (0.6-4.6); Lymphocytes % 4.6 %; Mean Corpuscular HGB Conc 30.2 g/dL (31.6-35.5); Mean Corpuscular Hemoglobin 26.1 pg (28.0-33.3); Mean Corpuscular Volume 86.2 fL (83.0-100.0); Mean Platelet Volume 9.2 fL (9.4-12.4); Monocytes % 0.8 %; Neutrophils # 4.5 K/mcL (1.6-8.9); Platelet Count 312 K/mcL (140-400); Red Blood Count 2.61 M/mcL (4.19-5.50); Red Cell Distribution Width 15.8 % (11.5-14.5); Segmented Neutrophils % 93.8 %; White Blood Count 4.8 K/mcL (4.3-11.1)
[2019-09-03 16:19] LABS: INR 1.3; Prothrombin Time 14.8 Seconds (9.4-12.1)
[2019-09-03 16:22] LABS: Activated Partial Thrombo Time 35.9 Seconds (26.0-36.0)
[2019-09-03] MEDS: Pantoprazole 40 MG VIAL IVP SCH ×2 (16:35→18:34)
[2019-09-03] MEDS: D5% in Lactated Ringers 1,000 ML IVC SCH (16:36)
[2019-09-03 16:41] LABS: BUN/Creatinine Ratio 26 (6-26); Blood Urea Nitrogen 26 mg/dL (8-23); Calcium 9.2 mg/dL (8.6-10.3); Carbon Dioxide 31 mEq/L (23-29); Chloride 101 mEq/L (98-107); Glucose 158 mg/dL (70-105); Osmolality,Calculated 302 (280-300); Potassium 4.7 mEq/L (3.5-5.1); Sodium 142 mEq/L (136-145); eGFR For African Americans > 60 (> 60); eGFR For Non-African Americans > 60 (> 60)
[2019-09-03 16:42] LABS: Magnesium 1.7 mg/dL (1.6-2.6); Phosphorous 3.3 mg/dL (2.7-4.5)
[2019-09-03] MEDS ORDERED: Ampicillin/Sulbactam 1,500 MG in 0.9 % Sodium Chloride Mini Bag 100 ML IVPB SCH (18:00)
[2019-09-03] MEDS: Insulin LISPRO 300 UNITS/3 ML VIAL SQ SCH (18:33)
[2019-09-03] MEDS: Budesonide/Formoterol 160/4.5 1 PUFF INH IH SCH (19:57)
[2019-09-04] MEDS: Insulin LISPRO 300 UNITS/3 ML VIAL SQ SCH ×4 (00:30→16:59)
[2019-09-04] MEDS: Pantoprazole 40 MG VIAL IVP SCH ×2 (05:45→17:02)
[2019-09-04] MEDS: Budesonide/Formoterol 160/4.5 1 PUFF INH IH SCH ×2 (07:25→20:01)
[2019-09-04] MEDS ORDERED: Ampicillin/Sulbactam 1,500 MG in 0.9 % Sodium Chloride Mini Bag 100 ML IVPB SCH (07:29)
[2019-09-04] MEDS ORDERED: Ampicillin/Sulbactam 3,000 MG in 0.9 % Sodium Chloride Mini Bag 100 ML IVPB SCH (07:39)
[2019-09-04 07:46] LABS: Hematocrit 23.6 % (37.5-50.1); Hemoglobin 7.5 g/dL (12.9-16.9); Immature Granulocytes % 0.4 % (0-4); Lymphocytes # 0.4 K/mcL (0.6-4.6); Lymphocytes % 9.9 %; Mean Corpuscular HGB Conc 31.8 g/dL (31.6-35.5); Mean Corpuscular Hemoglobin 26.4 pg (28.0-33.3); Mean Corpuscular Volume 83.1 fL (83.0-100.0); Monocytes # 0.5 K/mcL (0.0-1.3); Neutrophils # 3.5 K/mcL (1.6-8.9); Platelet Count 320 K/mcL (140-400); Red Blood Count 2.84 M/mcL (4.19-5.50); Red Cell Distribution Width 15.6 % (11.5-14.5); Segmented Neutrophils % 78.7 %; White Blood Count 4.5 K/mcL (4.3-11.1)
[2019-09-04 08:08] LABS: BUN/Creatinine Ratio 30 (6-26); Blood Urea Nitrogen 23 mg/dL (8-23); Calcium 8.8 mg/dL (8.6-10.3); Carbon Dioxide 32 mEq/L (23-29); Chloride 104 mEq/L (98-107); Glucose 133 mg/dL (70-105); Magnesium 1.8 mg/dL (1.6-2.6); Osmolality,Calculated 300 (280-300); Sodium 142 mEq/L (136-145); eGFR For African Americans > 60 (> 60); eGFR For Non-African Americans > 60 (> 60)
[2019-09-04] MEDS ORDERED: Azithromycin 500 MG in 0.9 % Sodium Chloride 250 ML IVPB SCH (09:00)
[2019-09-04] MEDS ORDERED: cefTRIAXone 1,000 MG in 0.9 % Sodium Chloride Mini Bag 100 ML IVPB SCH (09:00)
[2019-09-04] MEDS: Furosemide 40 MG/4 ML VIAL IVP SCH (10:32)
[2019-09-04] MEDS: Diltiazem CD (24hr) 120 MG CAPSULE PO SCH (10:32)
[2019-09-04] MEDS: Ampicillin/Sulbactam 3,000 MG in 0.9 % Sodium Chloride Mini Bag 100 ML IVPB SCH ×2 (12:34→17:04)
[2019-09-04] MEDS ORDERED: Ipratropium/Albuterol Neb 3 ML ONE (13:17)
[2019-09-04] MEDS ORDERED: Albuterol 2.5 MG/3 ML NEBULIZER IH ONE (13:25)
[2019-09-04] MEDS: Ringers Solution, Lactated 1,000 ML IVC SCH (13:26)
[2019-09-04] MEDS ORDERED: Lidocaine -MPF 2% 2 ML VIAL ONE (14:13)
[2019-09-04] MEDS ORDERED: *HR* Propofol 200 MG/20 ML VIAL IVP ONE (14:15)
[2019-09-04] MEDS ORDERED: Propofol 500 MG/50 ML INFUS..BTL ONE (14:18)
[2019-09-04] MEDS ORDERED: *HR* Succinylcholine 200 MG/10 ML VIAL IVP ONE (14:26)
[2019-09-04] MEDS ORDERED: Ondansetron 4 MG/2 ML VIAL ONE (14:26)
[2019-09-04] MEDS ORDERED: Dexamethasone 4 MG/ML VIAL ONE (14:26)
[2019-09-04 17:36] LABS: Basophils % 0.2 %; Hematocrit 25.9 % (37.5-50.1); Hemoglobin 8.1 g/dL (12.9-16.9); Immature Granulocytes % 0.7 % (0-4); Lymphocytes # 0.4 K/mcL (0.6-4.6); Lymphocytes % 6.8 %; Mean Corpuscular HGB Conc 31.3 g/dL (31.6-35.5); Mean Corpuscular Hemoglobin 26.1 pg (28.0-33.3); Mean Corpuscular Volume 83.5 fL (83.0-100.0); Mean Platelet Volume 9.4 fL (9.4-12.4); Monocytes # 0.3 K/mcL (0.0-1.3); Monocytes % 4.2 %; Neutrophils # 5.4 K/mcL (1.6-8.9); Platelet Count 356 K/mcL (140-400); Red Cell Distribution Width 15.8 % (11.5-14.5); Segmented Neutrophils % 88.1 %; White Blood Count 6.2 K/mcL (4.3-11.1)
[2019-09-04 18:47] LABS: Appearance of Body Fluid Cloudy (Clear); Volume of Body Fluid 25 mL
[2019-09-05] MEDS: Ampicillin/Sulbactam 3,000 MG in 0.9 % Sodium Chloride Mini Bag 100 ML IVPB SCH ×2 (00:40→06:36)
[2019-09-05] MEDS: Insulin LISPRO 300 UNITS/3 ML VIAL SQ SCH ×6 (01:00→20:02)
[2019-09-05] MEDS: Ringers Solution, Lactated 1,000 ML IVC SCH (01:38)
[2019-09-05 05:35] LABS: Hematocrit 23.8 % (37.5-50.1); Hemoglobin 7.3 g/dL (12.9-16.9); Immature Granulocytes % 0.3 % (0-4); Lymphocytes # 0.4 K/mcL (0.6-4.6); Lymphocytes % 6.5 %; Mean Corpuscular HGB Conc 30.7 g/dL (31.6-35.5); Mean Corpuscular Hemoglobin 25.9 pg (28.0-33.3); Mean Corpuscular Volume 84.4 fL (83.0-100.0); Mean Platelet Volume 9.4 fL (9.4-12.4); Monocytes # 0.3 K/mcL (0.0-1.3); Monocytes % 4.5 %; Neutrophils # 5.2 K/mcL (1.6-8.9); Platelet Count 329 K/mcL (140-400); Red Blood Count 2.82 M/mcL (4.19-5.50); Red Cell Distribution Width 15.8 % (11.5-14.5); Segmented Neutrophils % 88.7 %; White Blood Count 5.8 K/mcL (4.3-11.1)
[2019-09-05 05:41] LABS: BUN/Creatinine Ratio 35 (6-26); Blood Urea Nitrogen 30 mg/dL (8-23); Calcium 8.5 mg/dL (8.6-10.3); Carbon Dioxide 34 mEq/L (23-29); Chloride 102 mEq/L (98-107); Glucose 227 mg/dL (70-105); Magnesium 1.9 mg/dL (1.6-2.6); Osmolality,Calculated 305 (280-300); Phosphorous 3.5 mg/dL (2.7-4.5); Potassium 4.2 mEq/L (3.5-5.1); Sodium 141 mEq/L (136-145); eGFR For African Americans > 60 (> 60); eGFR For Non-African Americans > 60 (> 60)
[2019-09-05] MEDS ORDERED: 0.9 % Sodium Chloride 250 ML IVC SCH (07:15)
[2019-09-05] MEDS: D5% in Lactated Ringers 1,000 ML IVC SCH (07:49)
[2019-09-05] MEDS: Budesonide/Formoterol 160/4.5 1 PUFF INH IH SCH ×2 (08:00→20:23)
[2019-09-05] MEDS: Furosemide 40 MG/4 ML VIAL IVP SCH (08:59)
[2019-09-05] MEDS: Diltiazem CD (24hr) 120 MG CAPSULE PO SCH (08:59)
[2019-09-05] MEDS ORDERED: Pantoprazole 40 MG VIAL IVP SCH (09:00)
[2019-09-05] MEDS ORDERED: predniSONE 20 MG TABLET PO SCH (09:00)
[2019-09-05] MEDS: levoFLOXacin 750 MG TABLET PO SCH (10:13)
[2019-09-05] MEDS: MethylPREDNISolone 40 MG/ML VIAL IVP SCH (17:36)
[2019-09-05 17:42] LABS: Hematocrit 28.5 % (37.5-50.1); Hemoglobin 8.8 g/dL (12.9-16.9); Immature Granulocytes % 0.6 % (0-4); Lymphocytes # 0.4 K/mcL (0.6-4.6); Lymphocytes % 5.3 %; Mean Corpuscular HGB Conc 30.9 g/dL (31.6-35.5); Mean Corpuscular Hemoglobin 26.5 pg (28.0-33.3); Mean Corpuscular Volume 85.8 fL (83.0-100.0); Mean Platelet Volume 9.5 fL (9.4-12.4); Monocytes # 0.3 K/mcL (0.0-1.3); Monocytes % 4.2 %; Neutrophils # 7.3 K/mcL (1.6-8.9); Platelet Count 344 K/mcL (140-400); Red Blood Count 3.32 M/mcL (4.19-5.50); Red Cell Distribution Width 15.5 % (11.5-14.5); Segmented Neutrophils % 89.9 %; White Blood Count 8.2 K/mcL (4.3-11.1)
[2019-09-05] MEDS: amLODIPine 5 MG TABLET PO SCH (18:21)
[2019-09-05] MEDS: Insulin DETEMIR 100 UNIT/ML X5UNITS SQ SCH (20:02)
[2019-09-06] MEDS: MethylPREDNISolone 40 MG/ML VIAL IVP SCH ×2 (06:13→17:00)
[2019-09-06] MEDS: Budesonide/Formoterol 160/4.5 1 PUFF INH IH SCH ×2 (07:36→19:46)
[2019-09-06] MEDS: Ipratropium/Albuterol Neb 3 ML IH PRN ×2 (07:38→19:46)
[2019-09-06] MEDS: Insulin LISPRO 300 UNITS/3 ML VIAL SQ SCH ×4 (07:51→20:25)
[2019-09-06] MEDS: Diltiazem CD (24hr) 120 MG CAPSULE PO SCH (07:54)
[2019-09-06] MEDS: Furosemide 40 MG/4 ML VIAL IVP SCH (07:55)
[2019-09-06] MEDS: Insulin DETEMIR 100 UNIT/ML X5UNITS SQ SCH ×2 (07:55→20:25)
[2019-09-06] MEDS: levoFLOXacin 750 MG TABLET PO SCH (07:55)
[2019-09-06] MEDS: amLODIPine 5 MG TABLET PO SCH (07:56)
[2019-09-06 09:02] LABS: Basophils % 0.1 %; Hematocrit 34.6 % (37.5-50.1); Lymphocytes # 0.7 K/mcL (0.6-4.6); Lymphocytes % 7.6 %; Mean Corpuscular HGB Conc 31.8 g/dL (31.6-35.5); Mean Corpuscular Hemoglobin 26.7 pg (28.0-33.3); Mean Platelet Volume 9.4 fL (9.4-12.4); Monocytes # 0.5 K/mcL (0.0-1.3); Monocytes % 4.9 %; Neutrophils # 7.9 K/mcL (1.6-8.9); Platelet Count 438 K/mcL (140-400); Red Blood Count 4.12 M/mcL (4.19-5.50); Red Cell Distribution Width 15.8 % (11.5-14.5); Segmented Neutrophils % 86.4 %; White Blood Count 9.1 K/mcL (4.3-11.1)
[2019-09-07] MEDS: MethylPREDNISolone 40 MG/ML VIAL IVP SCH (05:04)
[2019-09-07 07:22] VITALS: BP 175/79
[2019-09-07] MEDS: Diltiazem CD (24hr) 120 MG CAPSULE PO SCH (09:29)
[2019-09-07] MEDS: amLODIPine 5 MG TABLET PO SCH (09:29)
[2019-09-07] MEDS: Insulin DETEMIR 100 UNIT/ML X5UNITS SQ SCH (09:29)
[2019-09-07] MEDS: levoFLOXacin 750 MG TABLET PO SCH (09:29)
[2019-09-07] MEDS: Insulin LISPRO 300 UNITS/3 ML VIAL SQ SCH ×2 (09:29→12:04)
[2019-09-07] MEDS: Budesonide/Formoterol 160/4.5 1 PUFF INH IH SCH (10:37)
== END 2019-09-07 13:25 | disposition home health service (06) | DRG 377 ==
LOC: 2ANU → SUATTDRO 14:37
PROVIDERS: ADMIT Internal Medicine; ATTEND Internal Medicine
PROC: ENDOEBX (2019-09-04 17:30)

== ENCOUNTER 2020-11-08 08:36 | Inpatient (IN) ==
[2020-11-08] MEDS ORDERED: Naloxone 0.4 MG/ML INJ IVP PRN (11:17)
[2020-11-08] MEDS ORDERED: Ondansetron 4 MG/2 ML VIAL IVP PRN (11:17)
[2020-11-08] MEDS ORDERED: Dextrose Gel 15 GM/37.5 ML TUBE PO PRN ×2 (11:18)
[2020-11-08] MEDS ORDERED: D5% in Water 1,000 ML IVC PRN (11:18)
[2020-11-08] MEDS ORDERED: *HR* Dextrose 50 % in Water (Vial) 50 ML VIAL IVP PRN (11:18)
[2020-11-08] MEDS ORDERED: Albuterol 2.5 MG/3 ML NEBULIZER IH PRN (11:19)
[2020-11-08] MEDS ORDERED: Albuterol 2.5 MG/3 ML NEBULIZER ONE (11:37)
[2020-11-08] MEDS: Albuterol 2.5 MG/3 ML NEBULIZER IH SCH ×4 (11:48→23:08)
[2020-11-08] MEDS: Insulin LISPRO 300 UNITS/3 ML VIAL SUBQ SCH ×2 (13:07→16:38)
[2020-11-08] MEDS: *HR* Heparin 5,000 UNIT/ML VIAL SQ SCH (16:38)
[2020-11-09] MEDS: Albuterol 2.5 MG/3 ML NEBULIZER IH SCH ×6 (03:21→23:17)
[2020-11-09 04:41] LABS: Basophils % 0.1 %; Hematocrit 30.3 % (37.5-50.1); Hemoglobin 9.5 g/dL (12.9-16.9); Immature Granulocytes % 1.8 % (0-4); Lymphocytes # 0.4 K/mcL (0.6-4.6); Lymphocytes % 5.8 %; Mean Corpuscular HGB Conc 31.4 g/dL (31.6-35.5); Mean Corpuscular Hemoglobin 30.4 pg (28.0-33.3); Mean Corpuscular Volume 96.8 fL (83.0-100.0); Mean Platelet Volume 9.8 fL (9.4-12.4); Monocytes # 0.5 K/mcL (0.0-1.3); Monocytes % 7.3 %; Neutrophils # 5.8 K/mcL (1.6-8.9); Platelet Count 247 K/mcL (140-400); Red Blood Count 3.13 M/mcL (4.19-5.50); Red Cell Distribution Width 15.1 % (11.5-14.5); White Blood Count 6.8 K/mcL (4.3-11.1)
[2020-11-09 04:49] LABS: VBG HCO3 40 mEq/L (21-27); VBG PCO2 79 mmHg (41-51); VBG PH 7.32 pH Units (7.32-7.42); VBG PO2 50 mmHg (25-50)
[2020-11-09 05:00] LABS: BUN/Creatinine Ratio 33 (6-26); Blood Urea Nitrogen 29 mg/dL (8-23); Calcium 8.9 mg/dL (8.6-10.3); Carbon Dioxide 39 mEq/L (23-29); Chloride 101 mEq/L (98-107); Glucose 202 mg/dL (70-105); Osmolality,Calculated 312 (280-300); Sodium 145 mEq/L (136-145); eGFR For African Americans > 60 (> 60); eGFR For Non-African Americans > 60 (> 60)
[2020-11-09] MEDS: *HR* Heparin 5,000 UNIT/ML VIAL SQ SCH ×2 (05:32→16:43)
[2020-11-09] MEDS: Azithromycin 250 MG TABLET PO SCH (08:00)
[2020-11-09] MEDS: MethylPREDNISolone 40 MG/ML VIAL IVP SCH ×2 (08:01→21:29)
[2020-11-09] MEDS: Insulin LISPRO 300 UNITS/3 ML VIAL SUBQ SCH ×3 (08:01→16:43)
[2020-11-09] MEDS: Pantoprazole 40 MG VIAL IVP SCH (08:01)
[2020-11-09 10:32] LABS: Hematocrit 33.6 % (37.5-50.1); Hemoglobin 10.1 g/dL (12.9-16.9); Mean Corpuscular HGB Conc 30.1 g/dL (31.6-35.5); Mean Corpuscular Hemoglobin 29.4 pg (28.0-33.3); Mean Corpuscular Volume 97.7 fL (83.0-100.0); Mean Platelet Volume 10.2 fL (9.4-12.4); Platelet Count 284 K/mcL (140-400); Red Blood Count 3.44 M/mcL (4.19-5.50); Red Cell Distribution Width 15.3 % (11.5-14.5); White Blood Count 8.7 K/mcL (4.3-11.1)
[2020-11-10 03:06] LABS: BUN/Creatinine Ratio 43 (6-26); Blood Urea Nitrogen 34 mg/dL (8-23); Calcium 8.7 mg/dL (8.6-10.3); Carbon Dioxide 37 mEq/L (23-29); Chloride 100 mEq/L (98-107); Glucose 261 mg/dL (70-105); Osmolality,Calculated 311 (280-300); Potassium 4.7 mEq/L (3.5-5.1); Sodium 142 mEq/L (136-145); eGFR For African Americans > 60 (> 60); eGFR For Non-African Americans > 60 (> 60)
[2020-11-10] MEDS: Albuterol 2.5 MG/3 ML NEBULIZER IH SCH ×5 (03:43→19:46)
[2020-11-10] MEDS: *HR* Heparin 5,000 UNIT/ML VIAL SQ SCH ×2 (05:41→17:11)
[2020-11-10] MEDS: Insulin LISPRO 300 UNITS/3 ML VIAL SUBQ SCH ×3 (07:46→17:12)
[2020-11-10] MEDS: Pantoprazole 40 MG VIAL IVP SCH (07:47)
[2020-11-10] MEDS: Azithromycin 250 MG TABLET PO SCH (07:47)
[2020-11-10] MEDS: MethylPREDNISolone 40 MG/ML VIAL IVP SCH ×2 (07:47→20:29)
[2020-11-10 08:18] LABS: Hematocrit 31.6 % (37.5-50.1); Hemoglobin 9.6 g/dL (12.9-16.9); Mean Corpuscular HGB Conc 30.4 g/dL (31.6-35.5); Mean Corpuscular Hemoglobin 29.9 pg (28.0-33.3); Mean Corpuscular Volume 98.4 fL (83.0-100.0); Platelet Count 304 K/mcL (140-400); Red Blood Count 3.21 M/mcL (4.19-5.50); Red Cell Distribution Width 15.3 % (11.5-14.5); White Blood Count 9.2 K/mcL (4.3-11.1)
[2020-11-10] MEDS: Budesonide/Formoterol 160/4.5 1 PUFF INH IH SCH ×2 (11:11→19:46)
[2020-11-10] MEDS: Tiotropium 10 INH DOSE IH SCH (11:13)
[2020-11-10] MEDS: Furosemide 20 MG TABLET PO SCH (12:45)
[2020-11-10] MEDS: Mirtazapine 15 MG TABLET PO SCH (20:29)
[2020-11-11] MEDS: Albuterol 2.5 MG/3 ML NEBULIZER IH SCH ×7 (00:01→23:42)
[2020-11-11 03:49] LABS: BUN/Creatinine Ratio 55 (6-26); Blood Urea Nitrogen 36 mg/dL (8-23); Calcium 9.1 mg/dL (8.6-10.3); Carbon Dioxide 37 mEq/L (23-29); Chloride 103 mEq/L (98-107); Glucose 220 mg/dL (70-105); Osmolality,Calculated 319 (280-300); Potassium 4.5 mEq/L (3.5-5.1); Sodium 147 mEq/L (136-145); eGFR For African Americans > 60 (> 60); eGFR For Non-African Americans > 60 (> 60)
[2020-11-11] MEDS: *HR* Heparin 5,000 UNIT/ML VIAL SQ SCH ×2 (06:10→17:47)
[2020-11-11] MEDS: Tiotropium 10 INH DOSE IH SCH (07:45)
[2020-11-11] MEDS: Budesonide/Formoterol 160/4.5 1 PUFF INH IH SCH ×2 (07:47→19:58)
[2020-11-11] MEDS: Azithromycin 250 MG TABLET PO SCH (08:30)
[2020-11-11] MEDS: Pantoprazole 40 MG VIAL IVP SCH (08:30)
[2020-11-11] MEDS: Furosemide 20 MG TABLET PO SCH (08:30)
[2020-11-11] MEDS: MethylPREDNISolone 40 MG/ML VIAL IVP SCH (08:30)
[2020-11-11] MEDS: Insulin LISPRO 300 UNITS/3 ML VIAL SUBQ SCH ×3 (08:31→15:37)
[2020-11-11] MEDS ORDERED: amLODIPine 5 MG TABLET PO SCH (14:15)
[2020-11-11] MEDS ORDERED: hydrALAZINE 10 MG TABLET PO ONE ×2 (15:37→15:39)
[2020-11-11] MEDS: Mirtazapine 15 MG TABLET PO SCH (20:50)
[2020-11-11] MEDS ORDERED: Insulin LISPRO 300 UNITS/3 ML VIAL SUBQ ONE (21:30)
[2020-11-12 03:18] LABS: Hematocrit 28.6 % (37.5-50.1); Hemoglobin 8.9 g/dL (12.9-16.9); Mean Corpuscular HGB Conc 31.1 g/dL (31.6-35.5); Mean Corpuscular Hemoglobin 29.7 pg (28.0-33.3); Mean Corpuscular Volume 95.3 fL (83.0-100.0); Mean Platelet Volume 10.4 fL (9.4-12.4); Platelet Count 287 K/mcL (140-400); Red Cell Distribution Width 15.3 % (11.5-14.5); White Blood Count 9.4 K/mcL (4.3-11.1)
[2020-11-12] MEDS: Albuterol 2.5 MG/3 ML NEBULIZER IH SCH ×3 (04:20→11:24)
[2020-11-12] MEDS: *HR* Heparin 5,000 UNIT/ML VIAL SQ SCH (05:30)
[2020-11-12] MEDS: Pantoprazole 40 MG VIAL IVP SCH (07:54)
[2020-11-12] MEDS: Azithromycin 250 MG TABLET PO SCH (07:54)
[2020-11-12] MEDS: Furosemide 20 MG TABLET PO SCH (07:54)
[2020-11-12] MEDS: Insulin LISPRO 300 UNITS/3 ML VIAL SUBQ SCH ×2 (07:55→10:52)
[2020-11-12] MEDS: Tiotropium 10 INH DOSE IH SCH (08:08)
[2020-11-12] MEDS: Budesonide/Formoterol 160/4.5 1 PUFF INH IH SCH (08:09)
[2020-11-12] MEDS ORDERED: Aspirin 325 MG TABLET PO SCH (09:00)
[2020-11-12] MEDS ORDERED: predniSONE 20 MG TABLET PO SCH (09:00)
[2020-11-12 10:33] VITALS: BP 149/59
== END 2020-11-12 15:19 | disposition home or self-care (01) | DRG 190 ==
LOC: INTOOBSV 11:11 → 2ANU 11:11
PROVIDERS: ADMIT Internal Medicine; ATTEND Internal Medicine

== ENCOUNTER 2020-12-26 01:47 | Observation (INO) ==
[2020-12-26] MEDS ORDERED: Ondansetron 4 MG/2 ML VIAL IVP PRN (06:13)
[2020-12-26] MEDS ORDERED: Naloxone 0.4 MG/ML INJ IVP PRN (06:13)
[2020-12-26] MEDS ORDERED: *HR* HYDROcodone/Acet 5/325 mg TABLET PO PRN (06:13)
[2020-12-26] MEDS ORDERED: *HR* Dextrose 50 % in Water (Vial) 50 ML VIAL IVP PRN (06:47)
[2020-12-26] MEDS ORDERED: D5% in Water 1,000 ML IVC PRN (06:47)
[2020-12-26] MEDS ORDERED: Dextrose Gel 15 GM/37.5 ML TUBE PO PRN ×2 (06:47)
[2020-12-26] MEDS ORDERED: Azithromycin 500 MG in 0.9 % Sodium Chloride 250 ML IVPB SCH (07:00)
[2020-12-26 07:30] LABS: Basophils # 0.1 K/mcL (0.0-0.2); Basophils % 0.5 %; Eosinophils % 0.2 %; Hematocrit 33.1 % (37.5-50.1); Hemoglobin 10.3 g/dL (12.9-16.9); Immature Granulocytes % 3.8 % (0-4); Lymphocytes # 1.4 K/mcL (0.6-4.6); Lymphocytes % 12.2 %; Mean Corpuscular HGB Conc 31.1 g/dL (31.6-35.5); Mean Corpuscular Volume 96.5 fL (83.0-100.0); Mean Platelet Volume 10.7 fL (9.4-12.4); Monocytes # 1.4 K/mcL (0.0-1.3); Monocytes % 12.3 %; Neutrophils # 7.9 K/mcL (1.6-8.9); Platelet Count 294 K/mcL (140-400); Red Blood Count 3.43 M/mcL (4.19-5.50); Red Cell Distribution Width 14.8 % (11.5-14.5); White Blood Count 11.1 K/mcL (4.3-11.1)
[2020-12-26 07:54] LABS: ABG Base Excess 17 mEq/L (-2 to 3); ABG HCO3 47 mEq/L (21-27); ABG Oxygen Saturation 95 % (95-98); ABG PCO2 90 mmHg (35-45); ABG PH 7.33 pH Units (7.32-7.45); ABG PO2 85 mmHg (85-104); ABG TCO2 50 mEq/L (20-26)
[2020-12-26] MEDS: Ipratropium/Albuterol Neb 3 ML IH SCH ×4 (07:57→19:39)
[2020-12-26 07:59] LABS: Magnesium 1.8 mg/dL (1.6-2.6); Phosphorous 3.9 mg/dL (2.7-4.5)
[2020-12-26] MEDS: Insulin LISPRO 300 UNITS/3 ML VIAL SUBQ SCH ×3 (08:08→16:59)
[2020-12-26] MEDS: MethylPREDNISolone 40 MG/ML VIAL IVP SCH ×2 (08:08→16:58)
[2020-12-26] MEDS ORDERED: cefTRIAXone 1,000 MG in Water for inj. (sterile) 10 ML IVP SCH (09:00)
[2020-12-26 10:06] LABS: INR 1.1; Prothrombin Time 12.4 Seconds (9.4-12.1)
[2020-12-26 10:09] LABS: Activated Partial Thrombo Time 27.4 Seconds (26.0-36.0)
[2020-12-26 10:53] LABS: Estimated Average Glucose 143 mg/dl; Hemoglobin A1C 6.6 %
[2020-12-26] MEDS: Furosemide 20 MG/2 ML VIAL IVP SCH (11:30)
[2020-12-26 13:51] LABS: ABG Base Excess 15 mEq/L (-2 to 3); ABG HCO3 44 mEq/L (21-27); ABG Oxygen Saturation 90 % (95-98); ABG PCO2 75 mmHg (35-45); ABG PH 7.37 pH Units (7.32-7.45); ABG PO2 64 mmHg (85-104); ABG TCO2 46 mEq/L (20-26)
[2020-12-26] MEDS: *HR* Heparin 5,000 UNIT/ML VIAL SQ SCH (16:58)
[2020-12-26] MEDS: Budesonide/Formoterol 160/4.5 1 PUFF INH IH SCH (19:39)
[2020-12-26] MEDS ORDERED: Mirtazapine 15 MG TABLET PO SCH (21:00)
[2020-12-27] MEDS: Ipratropium/Albuterol Neb 3 ML IH SCH ×4 (00:03→11:01)
[2020-12-27] MEDS: MethylPREDNISolone 40 MG/ML VIAL IVP SCH ×2 (00:26→08:08)
[2020-12-27 02:26] LABS: Hematocrit 34.6 % (37.5-50.1); Hemoglobin 10.6 g/dL (12.9-16.9); Mean Corpuscular HGB Conc 30.6 g/dL (31.6-35.5); Mean Corpuscular Hemoglobin 30.3 pg (28.0-33.3); Mean Corpuscular Volume 98.9 fL (83.0-100.0); Mean Platelet Volume 10.3 fL (9.4-12.4); Platelet Count 290 K/mcL (140-400); Red Cell Distribution Width 14.4 % (11.5-14.5); White Blood Count 9.9 K/mcL (4.3-11.1)
[2020-12-27 02:52] LABS: BUN/Creatinine Ratio 39 (6-26); Blood Urea Nitrogen 24 mg/dL (8-23); Calcium 8.9 mg/dL (8.6-10.3); Carbon Dioxide 42 mEq/L (23-29); Chloride 98 mEq/L (98-107); Glucose 142 mg/dL (70-105); Osmolality,Calculated 302 (280-300); Potassium 4.5 mEq/L (3.5-5.1); Sodium 143 mEq/L (136-145); eGFR For African Americans > 60 (> 60); eGFR For Non-African Americans > 60 (> 60)
[2020-12-27] MEDS: *HR* Heparin 5,000 UNIT/ML VIAL SQ SCH (05:50)
[2020-12-27] MEDS: Budesonide/Formoterol 160/4.5 1 PUFF INH IH SCH (07:56)
[2020-12-27] MEDS: Furosemide 20 MG/2 ML VIAL IVP SCH (08:08)
[2020-12-27] MEDS: Insulin LISPRO 300 UNITS/3 ML VIAL SUBQ SCH (08:09)
[2020-12-27 08:38] VITALS: BP 165/86
[2020-12-27] MEDS ORDERED: amLODIPine 5 MG TABLET PO SCH (09:00)
[2020-12-27] MEDS ORDERED: Aspirin 325 MG TABLET PO SCH (09:00)
[2020-12-27] MEDS ORDERED: NON-FORMULARY MEDICATION 1 EACH EACH (Roflumilast [Daliresp] 500 MCG Tablet) PO SCH (09:00)
[2020-12-27] MEDS ORDERED: Cyanocobalamin (B-12) 1,000 MCG TABLET PO SCH (09:00)
== END 2020-12-27 12:20 | disposition home health service (06) ==
LOC: 2NENU → SUATTDRO 05:29
PROVIDERS: ADMIT Internal Medicine; ATTEND Family Medicine